=== PATIENT | female | born 1955 | race Caucasian/White ===

== ENCOUNTER 2020-12-02 18:22 | Emergency (ER) | payer MEDICARE, OTHER ==
[~2020-12-02] VITALS: Ht 158 cm; Wt 85.7 kg
--- NOTE | 2020-12-02 19:36 | ED Lower Extremity ---
General Chief Complaint: Trauma-Non Activation Stated Complaint: FALL/R HIP INJ PAIN Nursing Triage Note: fall from standing position approx. 1300. reports initially able to ambulate. now reports pain worsened et. unable to bear wt on right leg. also c/o right shoulder pain. denies loc/other injuries. Nursing Sepsis Screen: No Definite Risk Source: patient Exam Limitations: no limitations History of Present Illness Date Seen by Provider: Dec 02, 2020 Time Seen by Provider: 19:34 Initial Comments This is a healthy-appearing 65-year-old female who presents to the ER with complaints of right hip pain and low back pain after slipping in a puddle of water and falling on her kitchen floor. Fall occurred around 1300 this afternoon. Denies hitting head or neck, no loss of consciousness. No numbnes s/tingling sensation. No loss of sensation in groin. No changes in bowel/bladder function. Allergies and Home Medications Allergies Coded Allergies: No Known Drug Allergies (Unverified , 12/02/20) Patient Home Medication List Home Medication List Reviewed: Yes Review of Systems Constitutional: no symptoms reported EENTM: no symptoms reported Respiratory: no symptoms reported Cardiovascular: no symptoms reported Gastrointestinal: no symptoms reported Genitourinary: no symptoms reported Musculoskeletal: see HPI Skin: no symptoms reported Psychiatric/Neurological: No Symptoms Reported Past Pqpyozw-Bvupuo-Kvphyc Hx Patient Social History Alcohol Use: Denies Use Recreational Drug Use: No Smoking Status: Never a Smoker 2nd Hand Smoke Exposure: No Recent Foreign Travel: No Contact w/Someone Who Travel: No Recent Infectious Disease Expo: No Recent Hopitalizations: No Immunizations Up To Date Tetanus Booster (TDap): Unknown Seasonal Allergies Seasonal Allergies: No Past Medical History Surgeries: Yes Hysterectomy, Orthopedic Respiratory: Yes (home 02 at ) COPD Cardiac: Yes Hypertension 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 oz. kg; 34.00 BMI Method: General Appearance: WD/WN, no apparent distress HEENT: PERRL/EOMI, normal ENT inspection Neck: non-tender, full range of motion, supple Cardiovascular: regular rate, rhythm, no murmur Respiratory: lungs clear, normal breath sounds Back: normal inspection, vertebral tenderness (lumbar region ) Hips: bilateral hip normal inspection; right hip pain Legs: bilateral leg non-tender, bilateral leg normal inspection, bilateral leg normal range of motion, bilateral leg no evidence of injury Knees: bilateral knee non-tender, bilateral knee normal inspection, bilateral knee normal range of motion, bilateral knee no evidence of injury Ankles: bilateral ankle non-tender, bilateral ankle normal inspection, bilateral ankle normal range of motion, bilateral ankle no evidence of injury Neurologic/Tendon: normal sensation, normal motor functions, normal tendon functions Neurologic/Psychiatric: no motor/sensory deficits, alert, normal mood/affect, oriented x 3 Skin: normal color, warm/dry Progress/Results/Core Measures Results/Orders My Orders Orders - JEANMARIE CHRISTOPHER APRN Pelvis/Tripp Hips 3-4 Views (12/02/20 19:36) Lumbar Spine - 2-3 Views (12/02/20 19:36) Orphenadrine Inj (Ed Only) (Norflex Inje (12/02/20 20:30) Ketorolac Injection (Toradol Injection) (12/02/20 20:30) Vital Signs/I&O 12/02/20 12/02/20 19:08 20:47 Temp 36.5 36.4 Pulse 78 76 Resp 18 18 B/P (MAP) 188/89 (122) 165/81 (122) Pulse Ox 95 96 O2 Delivery Room Air Room Air Blood Pressure Mean: 122 Progress Progress Note : Progress Note Images of lumbar spine and pelvis/hips ordered. Full ROM right shoulder with minimal discomfort. Orders placed for Toradol 30mg and Norflex 60mg IM for pain. No acute findings noted on x-rays. Reviewed discharge plan and she is agreeable with plan. Diagnostic Imaging Diagonstic Imaging: Xray Plain Films/CT/US/NM/MRI: pelvis Comments NAME: YORDAN JUAN [facility] REC#: [id number] PT STATUS: REG ER : 1955 PHYSICIAN: JEANMARIE CHRISTOPHER APRN ADMIT DATE: 12/02/20/ER Signed Date of Exam:12/02/20 PELVIS/TRIPP HIPS 3-4 VIEWS INDICATION: Fall. Right hip pain. FINDINGS: 3 views. AP pelvis shows moderate sclerosis along the inferior aspect of the left SI joint. Right SI joint appears normal. Pubic symphysis in good alignment. No evidence of pelvic fractures. There is total arthroplasty of the left hip with components in good position. Right hip is in good alignment with the acetabulum with mild to moderate degenerative changes. No fractures. IMPRESSION: Degenerative changes noted along the SI joints more severe on the left. Mild to moderate degenerative changes noted of the right hip as well. No acute abnormalities. Dictated by: Dictated on workstation # [id number] Dict: 12/02/202003 Trans: 12/02/202014 [facility]B [id number] Interpreted by: MATIAS POLLARD MD Electronically signed by: MATIAS POLLARD MD 12/02/202014 Diagonstic Imaging: Xray Plain Films/CT/US/NM/MRI: other (lumbar ) Comments NAME: YORDAN JAUN [facility] REC#: [id number] PT STATUS: REG ER : 1955 PHYSICIAN: JEANMARIE CHRISTOPHER [employer] ADMIT DATE: 12/02/20/ER Signed Date of Exam:12/02/20 LUMBAR SPINE - 2-3 VIEWS INDICATION: Fall. Back and right hip pain. FINDINGS: 3 views. The lumbosacral spine shows good alignment. Body height is well-maintained without evidence of compression fracture. Facets show good alignment. Minimal degenerative changes are noted. The aorta is atherosclerotic without aneurysm. There is moderate sclerosis along the inferior aspect of the left SI joint. IMPRESSION: Mild degenerative changes with no acute abnormalities noted. Dictated by: Dictated on workstation # [id number] Dict: 12/02/202002 Trans: 12/02/202014 [facility]B [id number] Interpreted by: MATIAS POLLARD MD Electronically signed by: MATIAS POLLARD MD 12/02/202014 Departure Impression Primary Impression: Fall Additional Impressions: Hip pain Back pain due to injury Disposition: HOME, SELF-CARE Condition: Improved Departure-Patient Inst. Decision time for Depature: 20:34 Referrals: NO,LOCAL PHYSICIAN (PCP/Family) Primary Care Physician Patient Instructions: Acute Pain, Adult Add. Discharge Instructions: Plan: 1. Discharge home. 2. May take Tylenol or Ibuprofen as needed for pain per package instructions. 3. Follow up with your primary care provider if your symptoms persist. 4. Return for any new or concerning symptoms. All discharge instructions reviewed with patient and/or family. Voiced understanding. JEANMARIE CHRISTOPHER [employer] Dec 02, 2020 19:36
--- NOTE | 2020-12-02 20:05 | Diagnostic Imaging Report ---
INDICATION: Fall. Back and right hip pain. FINDINGS: 3 views. The lumbosacral spine shows good alignment. Body height is well-maintained without evidence of compression fracture. Facets show good alignment. Minimal degenerative changes are noted. The aorta is atherosclerotic without aneurysm. There is moderate sclerosis along the inferior aspect of the left SI joint. IMPRESSION: Mild degenerative changes with no acute abnormalities noted. Dictated by: Dictated on workstation # [id number]
--- NOTE | 2020-12-02 20:08 | Diagnostic Imaging Report ---
INDICATION: Fall. Right hip pain. FINDINGS: 3 views. AP pelvis shows moderate sclerosis along the inferior aspect of the left SI joint. Right SI joint appears normal. Pubic symphysis in good alignment. No evidence of pelvic fractures. There is total arthroplasty of the left hip with components in good position. Right hip is in good alignment with the acetabulum with mild to moderate degenerative changes. No fractures. IMPRESSION: Degenerative changes noted along the SI joints more severe on the left. Mild to moderate degenerative changes noted of the right hip as well. No acute abnormalities. Dictated by: Dictated on workstation # [id number]
[2020-12-02] MEDS ORDERED: ORPHENADRINE 60 MG/2 ML (NORFLEX) AMP (ED ONLY) IM ONE (20:30)
[2020-12-02] MEDS ORDERED: KETOROLAC 60 MG/2 ML VIAL IM ONE (20:30)
[2020-12-02 20:47] VITALS: BP 165/81
--- NOTE | 2020-12-02 20:48 | NUR ---
REPORT GIVEN TO EL FRANCO
== END 2020-12-02 20:52 | disposition home or self-care (01) ==
LOC: EDUNIT# 18:22 → ER 18:25
DX: S39.92XA Unspecified injury of lower back, initial encounter (principal); M25.551 Pain in right hip; I10 Essential (primary) hypertension; J44.9 Chronic obstructive pulmonary disease, unspecified; Z99.81 Dependence on supplemental oxygen; W01.0XXA Fall on same level from slipping, tripping and stumbling without subsequent striking against object, initial encounter; Y92.000 Kitchen of unspecified non-institutional (private) residence as the place of occurrence of the external cause
CPT/HCPCS: 72100; 73522

== ENCOUNTER → 2021-04-14 | Outpatient (CLI) | payer MEDICARE, OTHER ==
--- NOTE | 2021-04-14 16:27 | Diagnostic Imaging Report ---
INDICATION: Right hip injury. Two views of the right hip show no fracture, dislocation or other acute abnormalities. IMPRESSION: No acute abnormalities seen in the right hip. Dictated by: Dictated on workstation # [id number]
== END ==
LOC: RAD FS 14:39
PROVIDERS: ATTEND Nurse Practitioner
DX: S70.01XA Contusion of right hip, initial encounter (principal); X58.XXXA Exposure to other specified factors, initial encounter
CPT/HCPCS: 73502

== ENCOUNTER 2021-09-12 11:19 | Inpatient (IN) | payer MEDICARE, OTHER ==
[~2021-09-12] VITALS: Ht 157.5 cm; Wt 85.3 kg
[2021-09-12 11:52] LABS: BASOPHILS % (AUTO) 0 % (0-10); EOSINOPHILS # (AUTO) 0.1 10^3/uL (0.0-0.3); EOSINOPHILS % (AUTO) 1 % (0-10); HEMATOCRIT 32 % (35-52); HEMOGLOBIN 10.3 g/dL (11.5-16.0); LYMPHOCYTES # (AUTO) 1.8 10^3/uL (1.0-4.0); LYMPHOCYTES % (AUTO) 22 % (12-44); MEAN CORPUSCULAR HEMOGLOBIN 29 pg (25-34); MEAN CORPUSCULAR HGB CONC 32 g/dL (32-36); MEAN CORPUSCULAR VOLUME 90 fL (80-99); MEAN PLATELET VOLUME 11.7 fL (9.0-12.2); MONOCYTES # (AUTO) 0.7 10^3/uL (0.0-1.0); MONOCYTES % (AUTO) 8 % (0-12); NEUTROPHILS # (AUTO) 5.8 10^3/uL (1.8-7.8); NEUTROPHILS % (AUTO) 69 % (42-75); PLATELET COUNT 175 10^3/uL (130-400); WHITE BLOOD COUNT 8.4 10^3/uL (4.3-11.0)
[2021-09-12] MEDS ORDERED: LACTATED RINGERS 1,000 ML IV SCH ×2 (12:00→15:15)
[2021-09-12] MEDS ORDERED: KETOROLAC 30 MG/ML VIAL IVP ONE (12:00)
[2021-09-12] MEDS ORDERED: oxyCODONE/APAP 5/325MG (PERCOCET 5) TABLET PO ONE (12:00)
[2021-09-12 12:07] LABS: ALBUMIN 3.3 GM/DL (3.2-4.5); POTASSIUM 3.8 MMOL/L (3.6-5.0)
[2021-09-12 12:08] LABS: CALCIUM 9.3 MG/DL (8.5-10.1); PROTHROMBIN TIME PATIENT 13.9 SEC (12.2-14.7)
[2021-09-12 12:10] LABS: TOTAL PROTEIN 6.8 GM/DL (6.4-8.2)
[2021-09-12 12:11] LABS: BILIRUBIN,TOTAL 0.5 MG/DL (0.1-1.0)
[2021-09-12 12:13] LABS: CREATININE SERUM 2.3 MG/DL (0.60-1.30)
--- NOTE | 2021-09-12 12:41 | ED Hip Pain/Injury ---
General Chief Complaint: Hip/Pelvic Problems Stated Complaint: L LEG PROBLEMS, LOW O2 Nursing Triage Note: PT TO RM 9 PER [facility] W C/O LEFT LEG "NOT WORKING" THIS AM D/T LEFT HIP PAIN. PT HAD RIGHT TOTAL HIP REPLACEMENT ON TUESDAY AND WAS DC HOME FROM [facility] YESTERDAY. PT DENIES BM SX SURGERY. 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 EMS REPORTS PT SPO2 IN LOW 80'S UPON ARRIVAL AND UP TO 90+% AFTER 2L NC. PT A&OX4. Source: patient Exam Limitations: no limitations (JOE KIMBROUGH APRN) History of Present Illness Date Seen by Provider: Sep 12, 2021 Time Seen by Provider: 11:30 Initial Comments To ER with report of left hip and leg "not working". Patient had a right total hip replacement on Tuesday at [facility]. Has not had a bowel movement since Tuesday. She wears oxygen at home at night at 2 L per nasal cannula. She has had some low blood pressure on the way in about 90 systolic. Left hip does move and it does work but limited range of motion secondary to pain in the left buttock. No fall or injury. Timing/Duration: constant Severity: moderate Location: hip (L) Associated Symptoms: denies symptoms (JOE KIMBROUGH APRN) Allergies and Home Medications Allergies Coded Allergies: No Known Drug Allergies (Unverified , 12/02/20) Patient Home Medication List Home Medication List Reviewed: Yes (JOE KIMBROUGH APRN) Review of Systems Constitutional: see HPI EENTM: see HPI Respiratory: no symptoms reported Cardiovascular: no symptoms reported Genitourinary: no symptoms reported Musculoskeletal: no symptoms reported Skin: no symptoms reported Psychiatric/Neurological: No Symptoms Reported (JOE KIMBROUGH APRN) Past Jvpmqii-Grgtdr-Lkckmt Hx Patient Social History Tobacco Use?: No Substance use?: No Alcohol Use?: No (JOE KIMBROUGH APRN) Immunizations Up To Date Tetanus Booster (TDap): Unknown First/Initial COVID19 Vaccinat: 2020 Second COVID19 Vaccination Arpan: 2020 COVID19 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: MODERNA (JOE KIMBROUGH APRN) Seasonal Allergies Seasonal Allergies: No (JOE KIMBROUGH APRN) Past Medical History Surgery/Hospitalization HX: SX: RIGHT TOTAL HIP REPLACEMENT 09/09/2021, HYSTERECTOMY, LEFT HIP REPLACEMENT 2012 PMH: COPD Surgeries: Yes Hysterectomy, Orthopedic Respiratory: Yes (home 02 at hs) COPD Cardiac: Yes Hypertension 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 oz. kg; 34.00 BMI Method: General Appearance: No Apparent Distress, WD/WN, Other (oxygen is 93% on her baseline 2 L. She is alert and oriented to person place time and situation.) HEENT: PERRL/EOMI, TMs Normal Neck: Full Range of Motion, Normal Inspection Cardiovascular: Regular Rate, Rhythm, Normal Peripheral Pulses Respiratory: Lungs Clear, Normal Breath Sounds, No Accessory Muscle Use, No Respiratory Distress Gastrointestinal: Normal Bowel Sounds, Non Tender, Soft Extremity: Normal Capillary Refill, Normal Inspection Neurologic/Psychiatric: Alert, Oriented x3 Skin: Normal Color, Warm/Dry Incision clean dry intact overlying the lateral right hip. (JOE KIMBROUGH APRN) Procedures/Interventions Lumen: triple Central Line Procedure: betadine prep, sterile drapes applied, sterile dressing applied Position: internal jugular (R) Anesthesia: local Volume Anesthetic (ccs): 4 Complications: none Post Position: sutured, good blood return, position confirmed w/ CXR (JOE KIMBROUGH APRN) Progress/Results/Core Measures Results/Orders Lab Results Laboratory Tests Test 09/12/21 11:40 09/12/21 11:44 09/12/21 12:00 Range/Units White Blood Count 8.4 4.3-11.0 10^3/uL Red Blood Count 3.52 L 3.80-5.11 10^6/uL Hemoglobin 10.3 L 11.5-16.0 g/dL Hematocrit 32 L 35-52 % Mean Corpuscular Volume 90 80-99 fL Mean Corpuscular Hemoglobin 29 25-34 pg Mean Corpuscular Hemoglobin Concent 32 32-36 g/dL Red Cell Distribution Width 14.3 10.0-14.5 % Platelet Count 175 130-400 10^3/uL Mean Platelet Volume 11.7 9.0-12.2 fL Immature Granulocyte % (Auto) 1 % Neutrophils (%) (Auto) 69 42-75 % Lymphocytes (%) (Auto) 22 12-44 % Monocytes (%) (Auto) 8 0-12 % Eosinophils (%) (Auto) 1 0-10 % Basophils (%) (Auto) 0 0-10 % Neutrophils # (Auto) 5.8 1.8-7.8 10^3/uL Lymphocytes # (Auto) 1.8 1.0-4.0 10^3/uL Monocytes # (Auto) 0.7 0.0-1.0 10^3/uL Eosinophils # (Auto) 0.1 0.0-0.3 10^3/uL Basophils # (Auto) 0.0 0.0-0.1 10^3/uL Immature Granulocyte # (Auto) 0.1 0.0-0.1 10^3/uL Prothrombin Time 13.9 12.2-14.7 SEC INR Comment 1.0 0.8-1.4 Activated Partial Thromboplast Time 25 24-35 SEC Sodium Level 133 L 135-145 MMOL/L Potassium Level 3.8 3.6-5.0 MMOL/L Chloride Level 97 L 98-107 MMOL/L Carbon Dioxide Level 21 21-32 MMOL/L Anion Gap 15 H 5-14 MMOL/L Blood Urea Nitrogen 28 H 7-18 MG/DL Creatinine 2.30 H 0.60-1.30 MG/DL Estimat Glomerular Filtration Rate 21 BUN/Creatinine Ratio 12 Glucose Level 258 H 70-105 MG/DL Calcium Level 9.3 8.5-10.1 MG/DL Corrected Calcium 9.9 8.5-10.1 MG/DL Total Bilirubin 0.5 0.1-1.0 MG/DL Aspartate Amino Transf (AST/SGOT) 63 H 5-34 U/L Alanine Aminotransferase (ALT/SGPT) 74 H 0-55 U/L Alkaline Phosphatase 67 40-136 U/L B-Type Natriuretic Peptide 392.5 H <100.0 PG/ML Total Protein 6.8 6.4-8.2 GM/DL Albumin 3.3 3.2-4.5 GM/DL Procalcitonin 0.38 H <0.10 NG/ML Glucometer 241 H 70-110 MG/DL Lactic Acid Level 2.31 *H 0.50-2.00 MMOL/L (IRAM WAKEFIELD MD) Medications Given in ED Current Medications Medications Dose Ordered Sig/Costa Route Start Time Stop Time Status Last Admin Dose Admin Ketorolac Tromethamine 15 mg ONCE ONCE IVP 09/12/21 12:00 09/12/21 12:01 DC 09/12/21 12:04 15 MG Oxycodone/ Acetaminophen 1 tab ONCE ONCE PO 09/12/21 12:00 09/12/21 12:01 DC 09/12/21 12:04 1 TAB (IRAM WAKEFIELD MD) Vital Signs/I&O 09/12/21 09/12/21 11:26 11:26 Temp 36.3 Pulse 88 Resp 18 B/P (MAP) 121/61 (81) Pulse Ox 97 97 O2 Delivery Nasal Cannula Nasal Cannula O2 Flow Rate 3.00 3.00 (IRAM WAKEFIELD MD) Blood Pressure Mean: 81 Departure Communication (Admissions) 1407-Pressure a little soft at 79/57 receiving first liter of fluids. Will admit to Dr Dakotah lacey Family Conversation NAME: YORDAN JUAN [facility] REC#: [id number] PT STATUS: REG ER : 1955 PHYSICIAN: JOE KIMBROUGH APRN ADMIT DATE: 09/12/21/ER Draft Date of Exam:09/12/21 CT ABDOMEN/PELVIS WO PROCEDURE: CT abdomen and pelvis without contrast. TECHNIQUE: Multiple contiguous axial images were obtained through the abdomen and pelvis without the use of intravenous contrast. Auto Exposure Controls were utilized during the CT exam to meet ALARA standards for radiation dose reduction. INDICATION: Abdominal pain EXAMINATION: CT abdomen pelvis without contrast 09/12/21 FINDINGS: Axial imaging of the abdomen and the pelvis without contrast. There is linear scar or atelectasis in the visualized lung bases. The nonopacified abdominal viscera limited due to the lack of contrast. There is no acute abnormality appreciated in the liver or spleen. There is evidence of previous cholecystectomy. The pancreas and adrenal glands appear unremarkable. Kidneys unremarkable. Atherosclerotic disease is noted. There is no inflammatory change about the loops of bowel. Appendix normal. There are bilateral hip prostheses which limit evaluation of the intrapelvic structures secondary to streak artifact. Fat stranding overlying the right hip prosthesis with several foci of subcutaneous air noted. Correlate clinically for recent procedure within the region as this could be iatrogenic. If there has been no recent intervention in the region a gas-forming infectious etiology would be the primary consideration. Adjacent fluid in the region could represent postsurgical seroma or hematoma with early abscess not excluded. Fat stranding extends along the lateral aspect of the right mid and proximal thigh which could be edema versus cellulitis. There is no acute osseous abnormality. IMPRESSION: 1. Fat stranding and fluid as well as subcutaneous air overlying the lateral border of the right hip. If there has been no recent intervention a gas-forming infectious etiology should be clinically excluded. MRI could provide further characterization if clinically indicated. Fat stranding more distally is noted likely on the basis of edema versus cellulitis not excluded on CT. 2. Incidental findings otherwise noted within the intra-abdominal and pelvic structures. Dictated on workstation # [id number] Dict: 09/12/21 1258 Trans: 09/12/21 1307 [facility] [id number] Interpreted by: SADIE LEDBETTER MD Electronically signed by: NAME: YORDAN JUAN [facility] REC#: [id number] PT STATUS: REG ER : 1955 PHYSICIAN: JOE KIMBROUGH APRN ADMIT DATE: 09/12/21/ER Draft Date of Exam:09/12/21 CT HEAD WO PROCEDURE: CT head without contrast. TECHNIQUE: Multiple contiguous axial images were obtained through the brain without the use of intravenous contrast. Auto Exposure Controls were utilized during the CT exam to meet ALARA standards for radiation dose reduction. DATE: September 12, 2021. COMPARISON: None. INDICATION: 66-year-old female, altered mental status. FINDINGS: The ventricles and cerebral spinal fluid spaces are of normal size and configuration for the patient's age. There is no mass effect or midline shift. There is no acute intracranial hemorrhage. There is no abnormal extra-axial fluid collection. The visualized portions of the paranasal sinuses, mastoid air cells and middle ears are well aerated. IMPRESSION: 1. No identified acute intracranial abnormality. Dictated on workstation # [id number] Dict: 09/12/21 1256 Trans: 09/12/21 1300 [facility] [id number] Interpreted by: VY BATEMAN MD Electronically signed by: (JOE KIMBROUGH APRN) Impression Primary Impression: JULIANN (acute kidney injury) Additional Impressions: Hip pain, left Status post right hip replacement Disposition: ADMITTED INPATIENT Condition: Stable Admissions Decision to Admit Reason: Admit from ER (General) Decision to Admit/Date: Sep 12, 2021 Time/Decision to Admit Time: 12:56 (JOE KIMBROUGH APRN) Departure-Patient Inst. Referrals: DEVORA TREVINO MD (PCP/Family) Primary Care Physician ATTENDING PHYSICIAN NOTE: I was physically present as attending physician in the emergency department during the care of this patient, but I was not directly involved in the decision making or delivery of care for this patient. (IRAM WAKEFIELD MD) JOE KIMBROUGH APRN Sep 12, 2021 12:41 IRAM WAKEFIELD MD Sep 12, 2021 17:18
--- NOTE | 2021-09-12 12:50 | Diagnostic Imaging Report ---
EXAMINATION: Chest radiograph, portable AP view. DATE: 09/12/2021 12:42 PM INDICATION: 66-year-old female, shortness of breath. COMPARISON: None. FINDINGS: Heart size and mediastinal contours are unremarkable. There is no identified pneumothorax. There is no large pleural effusion. There is no identified focal airspace consolidation. IMPRESSION: No identified acute cardiopulmonary abnormality. Dictated by: Dictated on workstation # [id number]
--- NOTE | 2021-09-12 13:00 | Diagnostic Imaging Report ---
PROCEDURE: CT head without contrast. TECHNIQUE: Multiple contiguous axial images were obtained through the brain without the use of intravenous contrast. Auto Exposure Controls were utilized during the CT exam to meet ALARA standards for radiation dose reduction. DATE: September 12, 2021. COMPARISON: None. INDICATION: 66-year-old female, altered mental status. FINDINGS: The ventricles and cerebral spinal fluid spaces are of normal size and configuration for the patient's age. There is no mass effect or midline shift. There is no acute intracranial hemorrhage. There is no abnormal extra-axial fluid collection. The visualized portions of the paranasal sinuses, mastoid air cells and middle ears are well aerated. IMPRESSION: 1. No identified acute intracranial abnormality. Dictated by: Dictated on workstation # [id number]
--- NOTE | 2021-09-12 13:07 | Diagnostic Imaging Report ---
PROCEDURE: CT abdomen and pelvis without contrast. TECHNIQUE: Multiple contiguous axial images were obtained through the abdomen and pelvis without the use of intravenous contrast. Auto Exposure Controls were utilized during the CT exam to meet ALARA standards for radiation dose reduction. INDICATION: Abdominal pain EXAMINATION: CT abdomen pelvis without contrast 09/12/21 FINDINGS: Axial imaging of the abdomen and the pelvis without contrast. There is linear scar or atelectasis in the visualized lung bases. The nonopacified abdominal viscera limited due to the lack of contrast. There is no acute abnormality appreciated in the liver or spleen. There is evidence of previous cholecystectomy. The pancreas and adrenal glands appear unremarkable. Kidneys unremarkable. Atherosclerotic disease is noted. There is no inflammatory change about the loops of bowel. Appendix normal. There are bilateral hip prostheses which limit evaluation of the intrapelvic structures secondary to streak artifact. Fat stranding overlying the right hip prosthesis with several foci of subcutaneous air noted. Correlate clinically for recent procedure within the region as this could be iatrogenic. If there has been no recent intervention in the region a gas-forming infectious etiology would be the primary consideration. Adjacent fluid in the region could represent postsurgical seroma or hematoma with early abscess not excluded. Fat stranding extends along the lateral aspect of the right mid and proximal thigh which could be edema versus cellulitis. There is no acute osseous abnormality. IMPRESSION: 1. Fat stranding and fluid as well as subcutaneous air overlying the lateral border of the right hip. If there has been no recent intervention a gas-forming infectious etiology should be clinically excluded. MRI could provide further characterization if clinically indicated. Fat stranding more distally is noted likely on the basis of edema versus cellulitis not excluded on CT. 2. Incidental findings otherwise noted within the intra-abdominal and pelvic structures. Dictated by: Dictated on workstation # [id number]
[2021-09-12 13:46] LABS: BILIRUBIN,URINE NEGATIVE (NEGATIVE); CLARITY,URINE SL CLOUDY; COLOR,URINE YELLOW; GLUCOSE, URINE (UA) NEGATIVE (NEGATIVE); KETONES,URINE NEGATIVE (NEGATIVE); LEUKOCYTE ESTERASE ,URINE NEGATIVE (NEGATIVE); NITRITE,URINE NEGATIVE (NEGATIVE); PH,URINE 5.5 (5-9); PROTEIN,URINE NEGATIVE (NEGATIVE)
[2021-09-12 13:52] LABS: BACTERIA,URINE NEGATIVE /HPF
[2021-09-12 15:19] LABS: ABG BASE EXCESS -0.6 MMOL/L (-2.5-2.5); ABG OXYGEN SATURATION 95 % (94-100); ABG PCO2 45 MMHG (35-45); ABG PH 7.35 (7.37-7.43); ABG PO2 82 MMHG (79-93); ABG TCO2 25.6 MMOL/L (21.0-31.0)
--- NOTE | 2021-09-12 15:19 | Diagnostic Imaging Report ---
INDICATION: Central line placement. EXAMINATION: Chest, 09/12/2021. COMPARISON: 09/12/2021 at an earlier time. FINDINGS: The heart is prominent. Pulmonary vascular unremarkable. Atelectasis versus infiltrate suspected at the left lung base. No significant effusion. No pneumothorax. Placement of a right jugular line is noted with the tip in the distal SVC. IMPRESSION: 1. Central line, as above. 2. Possible infiltrate at the left lung base. Dictated by: Dictated on workstation # [id number]
[2021-09-12 15:20] LABS: ALLENS TEST ARTLINE; INSPIRED O2 2; PATIENT TEMP 37.1; VENTILATOR NO
--- NOTE | 2021-09-12 15:52 | Tele-ICU Progress Note ---
Progress Note 66 y/o female s/p right total hip arthroplasty on 09/09 presents with left hip pain Lactate 2.3 WBC normal BUN: 28 Creat; 2.3 CT head and abd: essentially normal Air over right hip area PLAN: admit to ICU [place] cultured Focused Exam Lactate Level 09/12/21 12:00: Lactic Acid Level 2.31*H 09/12/21 14:00: Lactic Acid Level 2.23*H Height, Weight, BMI Height: '" Weight: lbs. oz. kg; 34.00 BMI Method: Lactic Acid Level Laboratory Tests Test 09/12/21 12:00 09/12/21 14:00 Lactic Acid Level 2.31 MMOL/L (0.50-2.00) *H 2.23 MMOL/L (0.50-2.00) *H Laboratory Tests 09/12/21 11:40 Results/Procedures Lab Laboratory Tests 09/12/21 11:40 Labs Labs Laboratory Tests 09/12/21 11:40: White Blood Count 8.4, Red Blood Count 3.52L, Hemoglobin 10.3L, Hematocrit 32L, Mean Corpuscular Volume 90, Mean Corpuscular Hemoglobin 29, Mean Corpuscular Hemoglobin Concent 32, Red Cell Distribution Width 14.3, Platelet Count 175, Mean Platelet Volume 11.7, Immature Granulocyte % (Auto) 1, Neutrophils (%) (Auto) 69, Lymphocytes (%) (Auto) 22, Monocytes (%) (Auto) 8, Eosinophils (%) (Auto) 1, Basophils (%) (Auto) 0, Neutrophils # (Auto) 5.8, Lymphocytes # (Auto) 1.8, Monocytes # (Auto) 0.7, Eosinophils # (Auto) 0.1, Basophils # (Auto) 0.0, Immature Granulocyte # (Auto) 0.1, Prothrombin Time 13.9, INR Comment 1.0, Activated Partial Thromboplast Time 25, Sodium Level 133L, Potassium Level 3.8, Chloride Level 97L, Carbon Dioxide Level 21, Anion Gap 15H, Blood Urea Nitrogen 28H, Creatinine 2.30H, Estimat Glomerular Filtration Rate 21, BUN/Creatinine R atio 12, Glucose Level 258H, Calcium Level 9.3, Corrected Calcium 9.9, Total Bi lirubin 0.5, Aspartate Amino Transf (AST/SGOT) 63H, Alanine Aminotransferase (ALT/SGPT) 74H, Alkaline Phosphatase 67, B-Type Natriuretic Peptide 392.5H, Total Protein 6.8, Albumin 3.3, Procalcitonin 0.38H 09/12/21 11:44: Glucometer 241H 09/12/21 12:00: Lactic Acid Level 2.31*H 09/12/21 13:35: Urine Color YELLOW, Urine Clarity SL CLOUDY, Urine pH 5.5, Urine Specific [place] 1.025H, Urine Protein NEGATIVE, Urine Glucose (UA) NEGATIVE, Urine Ketones NEGATIVE, Urine Nitrite NEGATIVE, Urine Bilirubin NEGATIVE, Urine Urobilinogen 0.2, Urine Leukocyte Esterase NEGATIVE, Urine RBC (Auto) NEGATIVE, Urine RBC NONE, Urine WBC NONE, Urine Squamous Epithelial Cells NONE, Urine Crystals NONE, Urine Bacteria NEGATIVE, Urine Casts NONE, Urine Mucus NEGATIVE, Urine Culture Indicated CULTURE PENDING 09/12/21 14:00: Lactic Acid Level 2.23*H 09/12/21 15:12: Blood Gas Puncture Site LEFT RADIAL, Blood Gas Patient Temperature 37.1, Arterial Blood pH 7.35L, Arterial Blood Partial Pressure CO2 45, Arterial Blood Partial Pressure O2 82, Arterial Blood HCO3 24, Arterial Blood Total CO2 25.6, Arterial Blood Oxygen Saturation 95, Arterial Blood Base Excess -0.6, Dylan Test ARTLINE, Blood Gas Ventilator Setting NO, Blood Gas Inspired Oxygen 2 BARRY FERRERA MD Sep 12, 2021 15:52
[2021-09-12] MEDS: DOCUSATE SODIUM 100 MG (COLACE) CAP PO SCH ×2 (17:17→21:29)
[2021-09-12] MEDS: LACTATED RINGERS 1,000 ML IV SCH (17:18)
[2021-09-12] MEDS: polyethylene glycoL POWDER 17 GM (MIRALAX) PACK PO SCH ×2 (17:18→21:29)
--- NOTE | 2021-09-12 19:14 | History & Physical-Hospitalist ---
History of Present Illness HPI/Chief Complaint Chief complaint: Acute kidney injury with hypotension History of present illness: This is a 66-year-old white female clinic patient of [facility] who just returned from [facility] yesterday after a hip replacement uncomplicated who began feeling weak and dizzy and in the ER was assessed to have acute kidney injury with hypotension. Upon my assessment she was lethargic and pale and ashen with hypotension so I asked for central line to be placed in ICU admission and to evaluate any source of sepsis. Patient appears to have hypovolemic status with acute kidney injury but will monitor patient closely in the ICU. Source: patient Exam Limitations: no limitations Date Seen 09/12/21 Time Seen by a Provider: 13:00 Attending Physician Blank Claire Pankaj K MD Referring Physician Date of Admission Sep 12, 2021 at 13:21 Home Medications & Allergies Home Medications Reviewed patient Home Medication Reconciliation performed by pharmacy medication reconciliations prosthetics technician and/or nursing. Patients Allergies have been reviewed. Allergies Allergies Coded Allergies No Known Drug Allergies (Unverified12/02/20) Past Nflklgg-Xzqcrm-Gymmde Hx Patient Social History Marrital Status: Employed/Student: retired Tobacco Use?: No Smoking Status: Never a Smoker Smokeless Tobacco Frequency: Never a User Use of E-Cig and/or Vaping dev: Unable to obtain Substance use?: No Alcohol Use?: No Pt feels they are or have been: No Immunizations Up To Date First/Initial COVID19 Vaccinat: 2020 Second COVID19 Vaccination Arpan: 07/2021 Tetanus Booster (TDap): Unknown Seasonal Allergies Seasonal Allergies: No Current Status Advance Directives: No Communicates: Verbally Primary Language: Sammarinese Preferred Spoken Language: Sammarinese Is interpretation needed?: No Implanted or Applied Medical D: None Past Medical History Surgeries: Hysterectomy, Orthopedic 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 Gastroesophageal Reflux Arthritis Diabetes, Non-Insulin dep Blood Disorders: No Review of Systems Constitutional: see HPI, dizziness, malaise, weakness EENTM: no symptoms reported Respiratory: no symptoms reported Cardiovascular: no symptoms reported Gastrointestinal: no symptoms reported Musculoskeletal: back pain, joint pain Skin: no symptoms reported Psychiatric/Neurological: No Symptoms Reported All Other Systems Reviewed Negative Unless Noted: Yes Physical Exam Physical Exam Vital Signs Vital Signs - First Documented 10/16/21 10/16/21 11:26 16:39 Temp 36.3 Pulse 88 Resp 18 B/P (MAP) 121/61 (81) Pulse Ox 97 O2 Delivery Nasal Cannula O2 Flow Rate 3.00 FiO2 91 Capillary Refill : Less Than 3 Seconds Height, Weight, BMI Height: '" Weight: lbs. oz. kg; 34.54 BMI Method: General Appearance: Anxious, Chronically ill, Mild Distress, Obese, Other (Pale and ashen) Eyes: Right Eye Normal Inspection, Right Eye PERRL HEENT: PERRL/EOMI, Normal ENT Inspection, Pharynx Normal, Moist Mucous Membranes Neck: Full Range of Motion, Normal Inspection, Non Tender Respiratory: Chest Non Tender, Lungs Clear, Normal Breath Sounds, No Accessory Muscle Use, No Respiratory Distress Cardiovascular: Regular Rate, Rhythm, No Edema, No Gallop, No JVD, No Murmur, Normal Peripheral Pulses Gastrointestinal: Normal Bowel Sounds, No Organomegaly, No Pulsatile Mass, Non Tender, Soft Back: Normal Inspection, No CVA Tenderness, No Vertebral Tenderness Extremity: Normal Capillary Refill, Normal Inspection, Normal Range of Motion, Non Tender, No Calf Tenderness, No Pedal Edema Neurologic/Psychiatric: Alert, Oriented x3, No Motor/Sensory Deficits, Normal Mood/Affect Skin: Normal Color, Warm/Dry Lymphatic: No Adenopathy Results Results/Procedures Labs Laboratory Tests 09/12/21 11:40 09/13/21 03:45 Patient resulted labs reviewed. Assessment/Plan Admission Diagnosis Assessment: Hypovolemia Hypotension Acute kidney injury Elevated lactic acid from volume depletion Recent hip replacement just discharged yesterday History of hypertension Plan: ICU IV fluids Central line Admission Status: Inpatient Order (span 2 midnights) Reason for Inpatient Admission: Hypotension with acute kidney injury BLANK CLAIRE DO Sep 12, 2021 19:14
[2021-09-12] MEDS ORDERED: inSUlin ASPART (NovoLOG) 1 UNIT/0.01 ML (CHARGE PER UNIT) ONE (19:59)
[2021-09-12] MEDS: inSUlin ASPART (NovoLOG) 1 UNIT/0.01 ML (CHARGE PER UNIT) SC SCH (20:00)
[2021-09-13] MEDS: LACTATED RINGERS 1,000 ML IV SCH ×3 (01:48→15:58)
[2021-09-13 03:53] LABS: BASOPHILS % (AUTO) 0 % (0-10); EOSINOPHILS # (AUTO) 0.1 10^3/uL (0.0-0.3); EOSINOPHILS % (AUTO) 2 % (0-10); HEMATOCRIT 27 % (35-52); HEMOGLOBIN 9.1 g/dL (11.5-16.0); LYMPHOCYTES # (AUTO) 1.7 10^3/uL (1.0-4.0); LYMPHOCYTES % (AUTO) 24 % (12-44); MEAN CORPUSCULAR HEMOGLOBIN 30 pg (25-34); MEAN CORPUSCULAR HGB CONC 34 g/dL (32-36); MEAN CORPUSCULAR VOLUME 90 fL (80-99); MEAN PLATELET VOLUME 12.1 fL (9.0-12.2); MONOCYTES # (AUTO) 0.5 10^3/uL (0.0-1.0); MONOCYTES % (AUTO) 7 % (0-12); NEUTROPHILS # (AUTO) 4.9 10^3/uL (1.8-7.8); NEUTROPHILS % (AUTO) 67 % (42-75); PLATELET COUNT 144 10^3/uL (130-400); WHITE BLOOD COUNT 7.2 10^3/uL (4.3-11.0)
[2021-09-13 04:05] LABS: CREATININE SERUM 0.75 MG/DL (0.60-1.30)
[2021-09-13] MEDS: inSUlin ASPART (NovoLOG) 1 UNIT/0.01 ML (CHARGE PER UNIT) SC SCH ×4 (05:34→21:06)
--- NOTE | 2021-09-13 06:41 | Progress Note - Hospitalist ---
Subjective HPI/CC On Admission Date Seen by Provider: Sep 13, 2021 Time Seen by Provider: 11:00 Chief complaint: Acute kidney injury with hypotension History of present illness: This is a 66-year-old white female clinic patient of [facility] who just returned from [facility] yesterday after a hip replacement uncomplicated who began feeling weak and dizzy and in the ER was assessed to have acute kidney injury with hypotension. Upon my assessment she was lethargic and pale and ashen with hypotension so I asked for central line to be placed in ICU admission and to evaluate any source of sepsis. Patient appears to have hypovolemic status with acute kidney injury but will monitor patient closely in the ICU. Subjective/Events-last exam Patient doing much better Transferring to fourth floor Hemoglobin 9.1 Bowels are moving yet Hypotension resolved Review of Systems General: Fatigue, Malaise Neurological: Weakness Focused Exam Lactate Level 09/12/21 12:00: Lactic Acid Level 2.31*H 09/12/21 14:00: Lactic Acid Level 2.23*H 09/12/21 16:06: Lactic Acid Level 1.56 Objective Exam Vital Signs Vital Signs Date Time Temp Pulse Resp B/P (MAP) Pulse Ox O2 Delivery O2 Flow Rate FiO2 09/14/21 04:46 36.3 76 16 156/73 96 Nasal Cannula 2.00 09/12/21 16:39 91 Capillary Refill : Less Than 3 Seconds General Appearance: No Apparent Distress, WD/WN, Chronically ill Respiratory: Lungs Clear, Normal Breath Sounds Cardiovascular: Regular Rate, Rhythm Neurologic/Psychiatric: Alert, Oriented x3, No Motor/Sensory Deficits, Normal Mood/Affect Results/Procedures Lab Patient resulted labs reviewed. Assessment/Plan Assessment and Plan Assess & Plan/Chief Complaint Assessment: Hypovolemia Hypotension Acute kidney injury Elevated lactic acid from volume depletion Recent hip replacement just discharged yesterday History of hypertension Plan: ICU IV fluids Central line 09/13/21: Transfer to floor DAGMAR ORTA DO Sep 13, 2021 06:41
[2021-09-13 06:46] LABS: ALBUMIN 2.8 GM/DL (3.2-4.5)
[2021-09-13 06:49] LABS: TOTAL PROTEIN 5.8 GM/DL (6.4-8.2)
[2021-09-13 06:51] LABS: BILIRUBIN,TOTAL 0.5 MG/DL (0.1-1.0)
[2021-09-13 06:55] LABS: BILIRUBIN,DIRECT 0.3 MG/DL (0.0-0.3); BILIRUBIN,INDIRECT 0.2 MG/DL
[2021-09-13] MEDS: polyethylene glycoL POWDER 17 GM (MIRALAX) PACK PO SCH ×2 (08:21→19:49)
[2021-09-13] MEDS: DOCUSATE SODIUM 100 MG (COLACE) CAP PO SCH ×2 (08:21→19:49)
--- NOTE | 2021-09-13 09:56 | Tele-ICU Progress Note ---
Progress Note Tele ICU Admitted on 09/12 with c/c L LE "not working-" and is in pain. Pt is post THR--on RIGHT on 09/09 - also no BM since 09/09. Hx COPD Chronic home O2 at 2 lpm. , T2DM. ED placed central line for access and hypotension. Idenitified in Ed as JULIANN with creat 2.3 , Procal elev 0,38, LA 2.41 CT abd/pelvis: IMPRESSION: 1. Fat stranding and fluid as well as subcutaneous air overlying the lateral border of the right hip. If there has been no recent intervention a gas-forming infectious etiology should be clinically excluded. MRI could provide further characterization if clinically indicated. Fat stranding more distally is noted likely on the basis of edema versus cellulitis not excluded onCT. 2. Incidental findings otherwise noted within the intra-abdominal and pelvic structures. HAS bilateral hip prostheses. Post fluid LA 1.56, Creat 1.76- Still c/o LEFT hip pain- other side than most recent hip replacement on R is asymptomatic .. Plan: WIll repeat Procal and ESR now and requesting Ortho consult- d/w nursing at bedside. Focused Exam Lactate Level 09/12/21 12:00: Lactic Acid Level 2.31*H 09/12/21 14:00: Lactic Acid Level 2.23*H 09/12/21 16:06: Lactic Acid Level 1.56 Height, Weight, BMI Height: '" Weight: lbs. oz. kg; 34.54 BMI Method: GABI WATTS DO Sep 13, 2021 09:56
[2021-09-13 14:09] LABS: URIC ACID 4.4 MG/DL (2.6-7.2)
[2021-09-13] MEDS: ONDANSETRON 4 MG/2 ML (SDV) Z0FRAN IVP PRN (16:30)
[2021-09-13] MEDS ORDERED: ATOR10TA66 PO (17:39)
[2021-09-13] MEDS ORDERED: GABA300S2 PO (17:39)
[2021-09-13] MEDS ORDERED: GLBR2.5T PO (17:39)
[2021-09-13] MEDS ORDERED: OXYC5CAP18 PO (17:39)
[2021-09-13] MEDS ORDERED: MIRA50TA PO (17:39)
[2021-09-13] MEDS ORDERED: TRAM100T40 PO (17:39)
[2021-09-13] MEDS ORDERED: OMEP40CA6 PO (17:39)
[2021-09-13] MEDS ORDERED: CITA40TA11 PO (17:39)
[2021-09-13] MEDS ORDERED: LISI20TA26 PO (17:39)
[2021-09-13] MEDS ORDERED: METF-397 PO (17:39)
[2021-09-13] MEDS ORDERED: NF-COLE1GM PO (17:39)
[2021-09-13] MEDS ORDERED: SITA100T12 PO (17:39)
[2021-09-14] MEDS: LACTATED RINGERS 1,000 ML IV SCH ×2 (00:22→08:31)
[2021-09-14] MEDS: inSUlin ASPART (NovoLOG) 1 UNIT/0.01 ML (CHARGE PER UNIT) SC SCH ×6 (05:16→21:14)
[2021-09-14 05:33] LABS: BASOPHILS % (AUTO) 0 % (0-10); EOSINOPHILS # (AUTO) 0.1 10^3/uL (0.0-0.3); EOSINOPHILS % (AUTO) 2 % (0-10); HEMATOCRIT 26 % (35-52); HEMOGLOBIN 8.4 g/dL (11.5-16.0); LYMPHOCYTES # (AUTO) 2.3 10^3/uL (1.0-4.0); LYMPHOCYTES % (AUTO) 39 % (12-44); MEAN CORPUSCULAR HEMOGLOBIN 30 pg (25-34); MEAN CORPUSCULAR HGB CONC 33 g/dL (32-36); MEAN CORPUSCULAR VOLUME 90 fL (80-99); MEAN PLATELET VOLUME 11.7 fL (9.0-12.2); MONOCYTES # (AUTO) 0.5 10^3/uL (0.0-1.0); MONOCYTES % (AUTO) 9 % (0-12); NEUTROPHILS # (AUTO) 2.9 10^3/uL (1.8-7.8); NEUTROPHILS % (AUTO) 49 % (42-75); PLATELET COUNT 158 10^3/uL (130-400); WHITE BLOOD COUNT 5.9 10^3/uL (4.3-11.0)
[2021-09-14 05:47] LABS: ALBUMIN 2.6 GM/DL (3.2-4.5)
[2021-09-14 05:49] LABS: TOTAL PROTEIN 5.5 GM/DL (6.4-8.2)
[2021-09-14 05:51] LABS: BILIRUBIN,TOTAL 0.5 MG/DL (0.1-1.0)
[2021-09-14 05:53] LABS: CREATININE SERUM 0.59 MG/DL (0.60-1.30)
[2021-09-14] MEDS: polyethylene glycoL POWDER 17 GM (MIRALAX) PACK PO SCH ×2 (08:30→19:36)
[2021-09-14] MEDS: DOCUSATE SODIUM 100 MG (COLACE) CAP PO SCH ×2 (08:31→19:36)
--- NOTE | 2021-09-14 09:29 | Consultation - Ortho ---
Consult - Ortho Subjective Date of Exam 09/14/21 Chief Complaint Left Buttock Pain HPI/Events since last exam Had right ARIELLE at [place] this past Tuesday. Admitted here due to contralateral hip pain and other medical issues. I was asked to evaluate left hip pain. History of left ARIELLE and subsequent revision remotely. States she "sat down hard" on her left side while at home. Noted swelling to the area which has improved. No groin pain. No lateral or anterior thigh pain. Localizes all pain to buttock muscle. Has been standing on left lower extremity without difficulty. Has been working with therapy. Medical, Surgical History not obtained Social History not obtained Family History not obtained Review of Systems not obtained Allergies: Coded Allergies: No Known Drug Allergies (Unverified , 12/02/20) Home Meds Reported Medications Citalopram Hydrobromide (Citalopram HBr) 40 Mg Tablet 09/13/21 Gabapentin (Gabapentin) 300 Mg/6 Ml Solution, 300 MG PO HS, EA 09/13/21 Oxycodone HCl (Oxycodone HCl) 5 Mg Capsule, 5 MG PO Q4H PRN for PAIN-SEVERE (8- 10) for 7 Days, CAP 09/13/21 Tramadol HCl (Tramadol HCl) 100 Mg Tablet, 100 MG PO Q6H PRN for PAIN-MODERATE (5-7), TAB 09/13/21 Colestipol HCl (Colestid) 1 Gm Tab, 1 GM PO BID, TAB 09/13/21 Metformin HCl (Metformin HCl) 500 Mg Tablet, 500 MG PO BID, TAB 09/13/21 Glyburide (Glyburide) 2.5 Mg Tablet, 2.5 MG PO DAILY, TAB 09/13/21 Lisinopril (Lisinopril) 20 Mg Tablet, 20 MG PO DAILY, TAB 09/13/21 Mirabegron (Myrbetriq) 50 Mg Tab.er.24h, 50 MG PO DAILY, TAB 09/13/21 Atorvastatin Calcium (Atorvastatin Calcium) 10 Mg Tablet, 10 MG PO HS, TAB 09/13/21 Sitagliptin Phosphate (Januvia) 100 Mg Tablet, 100 MG PO DAILY, TAB 09/13/21 Omeprazole (Omeprazole) 40 Mg Capsule.dr, 40 MG PO DAILY, CAP 09/13/21 Objective Exam L Hip: Lateral scar, no erythema, no warmth, no significant outward swelling, tender to direct palpation over buttock. Nontender over trochanter. Sit to st and does put pressure on both legs. CT scan reviewed and demonstrated no fluid collections around the prosthesis, post surgical changes noted with gas in soft tissue on right Vital Signs Vital Signs Date Time Temp Pulse Resp B/P (MAP) Pulse Ox O2 Delivery O2 Flow Rate FiO2 09/14/21 08:00 158/92 09/14/21 08:00 36.3 77 20 202/88 94 2.00 09/14/21 04:46 36.3 76 16 156/73 96 Nasal Cannula 2.00 09/14/21 00:22 36.7 80 20 160/81 95 Nasal Cannula 2.00 09/13/21 20:19 Nasal Cannula 2.00 09/13/21 20:13 94 Nasal Cannula 2.00 09/13/21 19:54 36.8 93 20 136/65 95 Nasal Cannula 2.00 09/13/21 16:57 37.5 92 20 174/79 96 Nasal Cannula 2.00 09/13/21 12:00 84 29 165/77 93 Nasal Cannula 2.00 09/13/21 11:54 Nasal Cannula 2.00 09/13/21 11:30 36.6 09/13/21 11:00 82 25 160/81 95 Nasal Cannula 2.00 09/13/21 10:00 86 21 91 Nasal Cannula 2.00 I & O 09/14/21 07:00 Intake Total 1500 ml Output Total 3500 ml Balance -2000 ml Lab Results Laboratory Tests 09/13/21 10:41: Erythrocyte Sedimentation Rate > 140H, Uric Acid 4.4, C-Reactive Protein High Sensitivity 15.30H, Procalcitonin 0.10H 09/13/21 11:25: Glucometer 221H 09/13/21 15:47: Glucometer 148H 09/13/21 16:27: Glucometer 136H 09/13/21 20:55: Glucometer 214H 09/14/21 05:10: Glucometer 171H 09/14/21 05:21: White Blood Count 5.9, Red Blood Count 2.85L, Hemoglobin 8.4L, Hematocrit 26L, Mean Corpuscular Volume 90, Mean Corpuscular Hemoglobin 30, Mean Corpuscular Hemoglobin Concent 33, Red Cell Distribution Width 14.1, Platelet Count 158, Mean Platelet Volume 11.7, Immature Granulocyte % (Auto) 0, Neutrophils (%) (Auto) 49, Lymphocytes (%) (Auto) 39, Monocytes (%) (Auto) 9, Eosinophils (%) (Auto) 2, Basophils (%) (Auto) 0, Neutrophils # (Auto) 2.9, Lymphocytes # (Auto) 2.3, Monocytes # (Auto) 0.5, Eosinophils # (Auto) 0.1, Basophils # (Auto) 0.0, Immature Granulocyte # (Auto) 0.0, Sodium Level 136, Potassium Level 4.0, Chloride Level 100, Carbon Dioxide Level 29, Anion Gap 7, Blood Urea Nitrogen 8, Creatinine 0.59L, Estimat Glomerular Filtration Rate 102, BUN/Creatinine Ratio 14, Glucose Level 161H, Calcium Level 9.0, Corrected Calcium 10.1, Total Bi lirubin 0.5, Aspartate Amino Transf (AST/SGOT) 73H, Alanine Aminotransferase (ALT/SGPT) 67H, Alkaline Phosphatase 61, Total Protein 5.5L, Albumin 2.6L Microbiology 09/12/21 MRSA Screen - Final, Complete MRSA not isolated 09/12/21 Urine Culture - Final, Complete NO GROWTH 09/12/21 Blood Culture - Preliminary, Resulted No growth Assessment and Plan Assessment Left Buttock Pain/Contusion Problem List Left Buttock Pain/Contusion Plan Will obtain AP pelvis. Continue PT efforts. Observe for now Final Diagonsis Left Hip Pain Level of the visit: Level 3 EMELY SOUTH MD Sep 14, 2021 09:29
--- NOTE | 2021-09-14 10:00 | Physical Therapy Evaluation ---
PT Evaluation-General Medical Diagnosis Admission Date Sep 12, 2021 at 13:21 Medical Diagnosis: JULIANN/right THR/left hip pain/hypotension Onset Date: Sep 12, 2021 Therapy Diagnosis Therapy Diagnosis: debility/weakness Precautions Precautions/Isolations: Fall Prevention, Standard Precautions Referral Physician: [place] Reason for Referral: Evaluation/Treatment Medical History Pertinent Medical History: DM Additional Medical History recent right THR/left THR 2012 Current History EMS secondary to left LE "not working" Reviewed History: Yes Social History Home: Single Level Current Living Status: Spouse Prior Prior Level of Function SCALE: Activities may be completed with or without assistive devices. 9-Xzygtcznnp-xrdaqao completes the activity by him/herself with no assistance from a helper. 5-Set-up or Clean-up Assistance-helper sets up or cleans up; patient completes activity. [place] assists only prior to or following the activity. 4-Supervision or Touching Assistance-helper provides verbal cues and/or touching/steadying and/or contact guard assistance as patient completes activity. Assistance may be provided throughout the activity or intermittently. 3-Partial/Moderate Assistance-helper does LESS THAN HALF the effort. [place] lifts, holds or supports trunk or limbs, but provides less than half the effort. 2-Substantial/Maximal Assistance-helper does MORE THAN HALF the effort. [place] lifts or holds trunk or limbs and provides more than half the effort. 9-Fefpaaxrk-fftocy does ALL the effort. Patient does none of the effort to complete the activity. Or, the assistance of 2 or more helpers is required for the patient to complete the activity. If activity was not attempted, code reason: 7-Patient Refused. 9-Not Applicable-not attempted and the patient did not perform the activity before the current illness, exacerbation or injury. 10-Not Attempted due to Environmental Limitations-(lack of equipment, weather restraints, etc.). 88-Not Attempted due to Medical Conditions or Safety Concerns. Bed Mobility: 5 Transfers (B,C,W/C): 5 Gait: 5 Indoor Mobility (Ambulation): Independent Prior Devices Use: Walker PT Evaluation-Current Subjective Patient states, "I can't move. I have fibromyalgia and I just can't move." PT reassures patient she is able to move and encourages OOB activity. Patient laughs and states, "Whatever." Objective Patient Orientation: Normal For Age Attachments: Oxygen, Mckinley Catheter, IV ROM/Strength ROM Lower Extremities right THR/left guarded due to pain with slight IR left Strength Lower Extremities 3/5 grossly bilateral LE Integumentary/Posture Integumentary noted "knot" left upper gluteal region with tender to palpation Bowel Incontinence: No Bladder Incontinence: Mckinley Cath Posture WFL Neuromuscular (Tone, Coordination, Reflexes) grossly intact Sensory Vision: Functional Hearing: Functional Transfers Roll Left to Right (QC): 3 Sit to Lying (QC): 3 Lying to Sitting/Side of Bed(Q: 3 Sit to Stand (QC): 3 Chair/Bcm-hf-Vfzfn Xfer(QC): 3 Gait Does the Patient Walk?: Yes Mode of Locomotion: Walk Anticipated Mode of Locomotion: Walk Walk 10 feet (QC): 3 Walk 50 ft with 2 Turns(QC): 3 Walk 150 ft (QC): 88 Distance: 75' Gait Assistive Device: FWW Comments/Gait Description slow, steady, antalgic gait sequence Balance Sitting Static: Normal Sitting Dynamic: Normal Standing Static: Normal Standing Dynamic: Normal Picking up an Object (QC): 88 (hip precautions) Assessment/Needs 66 y.o. female, will benefit from skilled PT to address functional strength and mobility to improve current LOF to safely return to home with spouse at maximum LOF. Rehab Potential: Fair PT Jail Goals Jail Goals PT Jail Goals Time Frame: Sep 26, 2021 Roll Left & Right (QC): 5 Sit to Lying (QC): 5 Lying-Sitting on Side/Bed(QC): 5 Sit to Stand (QC): 5 Chair/Yvb-pp-Uucnp Xfer(QC): 5 Toilet Transfer (QC): 5 Walk 10 feet (QC): 5 Walk 50ft with 2 Turns (QC): 5 Walk 150 ft (QC): 5 PT Plan Problem List Problem List: Activity Tolerance, Functional Strength, Safety, Balance, Gait, Transfer, Bed Mobility Treatment/Plan Treatment Plan: Continue Plan of Care Treatment Plan: Bed Mobility, Education, Functional Activity Cleve, Functional Strength, Gait, Safety, Therapeutic Exercise, Transfers Treatment Duration: Sep 26, 2021 Frequency: 11 times per week Estimated Hrs Per Day: .5 hour per day Patient and/or Family Agrees t: Yes Time/GCodes Time In: 855 Time Out: 917 Total Billed Treatment Time: 22 Total Billed Treatment 1 visit EVModC 22 min ZECHARIAH PAYAN PT Sep 14, 2021 10:00
[2021-09-14] MEDS: LACTULOSE SYRUP 10GM/15ML (ENULOSE) 30ML UDC PO SCH ×2 (10:09→19:36)
[2021-09-14] MEDS: BISACODYL 10 MG SUPP (DULCOLAX) PR SCH (10:09)
[2021-09-14] MEDS: SENNA W/DOCUSATE (SENOKOT S) TABLET PO SCH ×2 (10:09→19:36)
--- NOTE | 2021-09-14 11:29 | Occupational Therapy Eval ---
OT Evaluation-General/PLF Medical Diagnosis Admission Date Sep 12, 2021 at 13:21 Medical Diagnosis: JULIANN/right THR/left hip pain/hypotension Onset Date: Sep 12, 2021 Therapy Diagnosis Therapy Diagnosis: impaired adls, endurance, activity tolerance, strength Precautions Precautions/Isolations: Fall Prevention, Standard Precautions Comments R ARIELLE Weight Bear Status Weight Bearing Restriction: Weight Bearing/Tolerated Location Restriction: R LE Referral Physician: Dakotah Referral Reason: Evaluation/Treatment Medical History Pertinent Medical History: DM Additional Medical History L ARIELLE-2012 R ARIELLE- 09/09/21 Current History Pt presents to ER after feeling weak/dizzy post R ARIELLE (09/09/21) performed at [facility]. She reports living with her spouse in a mobile home, 4 steps to enter. She states she owns a transition social worker, sock aid, riser, shower chair and grab bars. She states that she fell back in December and have been having increased difficulties with ADLs since. She shares IADL responsibilities with her . She no longer drives and was using a FWW prior to admission. She verbalizes that she did not receive any therapy and went straight home following hip replacement. Reviewed History: Yes Social History Home: Single Level Current Living Status: Spouse Steps Into Home: 4 ADL-Prior Level of Function SCALE: Activities may be completed with or without assistive devices. 1-Njgsjinziu-rjuvhgw completes the activity by him/herself with no assistance from a helper. 5-Set-up or Clean-up Assistance-helper sets up or cleans up; patient completes activity. [place] assists only prior to or following the activity. 4-Supervision or Touching Assistance-helper provides verbal cues and/or touching/steadying and/or contact guard assistance as patient completes activity. Assistance may be provided throughout the activity or intermittently. 3-Partial/Moderate Assistance-helper does LESS THAN HALF the effort. [place] lifts, holds or supports trunk or limbs, but provides less than half the effort. 2-Substantial/Maximal Assistance-helper does MORE THAN HALF the effort. [place] lifts or holds trunk or limbs and provides more than half the effort. 5-Oztwcmvyb-eshkmb does ALL the effort. Patient does none of the effort to complete the activity. Or, the assistance of 2 or more helpers is required for the patient to complete the activity. If activity was not attempted, code reason: 7-Patient Refused. 9-Not Applicable-not attempted and the patient did not perform the activity before the current illness, exacerbation or injury. 10-Not Attempted due to Environmental Limitations-(lack of equipment, weather restraints, etc.). 88-Not Attempted due to Medical Conditions or Safety Concerns. Self Care: Needed Some Help Functional Cognition: Unknown DME/Equipment: Bath Chair, Grab Bars, Sock Aid, Tub/Shower, Toilet/Riser Drive Self: No OT Current Status Subjective Pt sitting in chair at OT arrival, reports pain as 4/10 mostly in her buttocks region. Appearance Pt left sitting in chair, all needs within reach. Mental Status/Objective Patient Orientation: Person, Situation Attachments: Mckinley Catheter, IV, Oxygen Current Hand Dominance: Right Upper Extremity ROM Pt reports old rotator cuff repair on R shoulder. 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 ADL-Treatment Oral Hygiene (QC): 3 (balance assist per clinical judgement) Lower Body Dressing (QC): 3 (per clinical judgement ) On/Off Footwear (QC): 3 Pt sitting in chair at OT arrival. Able to verbalize 2/3 hip precautions, cues on no internal rotation. Pt reports owning a sock aid and using it in the past with old L hip surgery. Mod Cues still needed for correct use. She stood with CGA-min A and extra time for extending hips. Once upright, pt able to maintain balance with steading assist. She took 4-5 steps forward/backward with CGA and use of walker. Pt appears to have more difficulty lifting L foot vs Right. Limited distance due to not having enough oxygen line. She was able to demonstrate ability to remove UE support and maintain balance for ~30 seconds before needing to replace hands on walker. Anticipate pt able to perform cl othing management with CGA-Min A. Education OT Patient Education: Correct positioning, Energy conservation, Modified ADL techniques, Progress toward Goal/Update tx plan, Purpose of tx/functional activities, Reviewed precautions, Rehab process, Safety issues, Transfer techniques, Use of adapted equipment Teaching Recipient: Patient Teaching Methods: Demonstration, Discussion Response to Teaching: Verbalize Understanding, Return Demonstration, Reinforcement Needed OT [facility] Goals [facility] Goals Time Frame: Sep 26, 2021 Oral Hygiene (QC): 4 Toileting Hygiene (QC): 4 Lower Body Dressing (QC): 4 On/Off Footwear (QC): 4 1=Demonstrate adherence to instructed precautions during ADL tasks. 2=Patient will verbalize/demonstrate understanding of assistive devices/modifications for ADL. 3=Patient will improve strength/tolerance for activity to enable patient to perform ADL's. OT Education/Plan Problem List/Assessment Assessment: Decreased Activ Tolerance, Decreased Safety Aware, Decreased UE St rength, Impaired Bed Mobility, Impaired Funct Balance, Impaired I ADL's, Impaired Self-Care Skills Discharge Recommendations Plan/Recommendations: Continue POC Target Placement ongoing assessment Treatment Plan/Plan of Care Treatment,Training & Education: Yes Patient would benefit from OT for education, treatment and training to promote independence in ADL's, mobility, safety and/or upper extremity function for ADL's. Plan of Care: ADL Retraining, Functional Mobility, UE Funct Exercise/Act Treatment Duration: Sep 26, 2021 Frequency: 5 times per week Estimated Hrs Per Day: .25 hour per day Agreement: Yes Rehab Potential: Fair Time/GCodes Start Time: 09:42 Stop Time: 09:59 Total Time Billed (hr/min): 17 Billed Treatment Time 1 visit Ayala Bowers OT Sep 14, 2021 11:29
[2021-09-14] MEDS ORDERED: CETI10TA49 PO (13:12)
--- NOTE | 2021-09-14 13:24 | Progress Note - Hospitalist ---
Subjective HPI/CC On Admission Date Seen by Provider: Sep 14, 2021 Time Seen by Provider: 08:50 Chief complaint: Acute kidney injury with hypotension History of present illness: This is a 66-year-old white female clinic patient of [facility] who just returned from [facility] yesterday after a hip replacement uncomplicated who began feeling weak and dizzy and in the ER was assessed to have acute kidney injury with hypotension. Upon my assessment she was lethargic and pale and ashen with hypotension so I asked for central line to be placed in ICU admission and to evaluate any source of sepsis. Patient appears to have hypovolemic status with acute kidney injury but will monitor patient closely in the ICU. Focused Exam Lactate Level 09/12/21 12:00: Lactic Acid Level 2.31*H 09/12/21 14:00: Lactic Acid Level 2.23*H 09/12/21 16:06: Lactic Acid Level 1.56 Objective Exam Vital Signs Vital Signs Date Time Temp Pulse Resp B/P (MAP) Pulse Ox O2 Delivery O2 Flow Rate FiO2 09/14/21 09:53 94 Nasal Cannula 2.00 09/14/21 08:00 158/92 09/14/21 08:00 36.3 77 20 09/12/21 16:39 91 Capillary Refill : Less Than 3 Seconds General Appearance: WD/WN, Mild Distress HEENT: PERRL/EOMI Results/Procedures Lab Laboratory Tests 09/14/21 05:21 Patient resulted labs reviewed. Imaging: Reviewed Imaging Films Radiology NAME: YORDAN JUAN [facility] REC#: [id number] PT STATUS: ADM IN : 1955 PHYSICIAN: JOE KIMBROUGH APRN ADMIT DATE: 09/12/21/ICU Signed Date of Exam:09/12/21 CHEST 1 VIEW, AP/PA ONLY INDICATION: Central line placement. EXAMINATION: Chest, 09/12/2021. COMPARISON: 09/12/2021 at an earlier time. FINDINGS: The heart is prominent. Pulmonary vascular unremarkable. Atelectasis versus infiltrate suspected at the left lung base. No significant effusion. No pneumothorax. Placement of a right jugular line is noted with the tip in the distal SVC. IMPRESSION: 1. Central line, as above. 2. Possible infiltrate at the left lung base. Dictated by: Dictated on workstation # [id number] Dict: 09/12/21 1515 Trans: 09/12/21 1522 [facility] [id number] Interpreted by: SADIE LEDBETTER MD Electronically signed by: SADIE LEDBETTER MD 09/12/21 152 Meds Vital Signs Label Value Date Time Blood Pressure Assessment 09/14/21 0800 Location Left Arm Source Automatic Cuff Item Value Date Time Insulin Aspart INSULIN SLIDING SCALE ... 09/14/21 1100 (NovoLOG (CHARGE ACHS/SC PER UNIT)) Senna 2 ea 09/14/21 1000 (Senokot S BID/PO 09/14/21 1009 Tablet) Lactulose 10 gm 09/14/21 1000 (Enulose Oral BID/PO 09/14/21 1009 Solution) Bisacodyl 10 mg 09/14/21 1000 (Dulcolax DAILY/CT 09/14/21 1009 Suppository) Ondansetron HCl 4 mg 09/13/21 1600 (Zofran Q4H PRN/IVP 09/13/21 1630 Injection (Sdv)) Insulin Aspart SLIDING SCALE ICU BL... 09/12/21 2100 (NovoLOG (CHARGE ACHS/SC PER UNIT)) Oxycodone HCl 5 mg 09/12/21 1630 (Oxyir Tablet) Q4H PRN/PO 09/14/21 0830 Polyethylene 17 gm 09/12/21 1615 Glycol BID/PO 09/14/21 0830 (Miralax 17 Gm Packet) Docusate Sodium 100 mg 09/12/21 1614 (Colace Capsule) BID/PO 09/14/21 0831 Heparin Sodium 5,000 units 09/12/21 1600 (Porcine) Q8H/SC 09/14/21 0829 (HEParin INJECTION) Lactated Ringer's 1,000 ml @ 0 mls/hr 09/12/21 1200 STEWART SAVAGE Sep 14, 2021 13:24
--- NOTE | 2021-09-14 13:33 | Progress Note ---
JANETTESTEWART 09/14/21 1333: Subjective Date Seen by a Provider: Sep 14, 2021 Time Seen by a Provider: 08:50 Subjective/Events-last exam Today, Yordan is cooperative and alert She is in mild distress d/t pain s/p hip replacement on 09/09/21 Working with PT to maintain mobility; worked on sit to stand and ambulation with walker Blood pressure is elevated, IV fluids were discontinued Chest X-ray noted possible infiltrate of L lung base on 09/12/21 Repeat chest x-ray ordered along with procalcitonin Currently using 2 L N/C Currently on heparin 5000 units Review of Systems General: Fatigue, Malaise Musculoskeletal: leg pain Focused Exam Sepsis Stage: Ruled Out Reason for ruling out sepsis: No SIRS criteria present Lactate Level 09/12/21 12:00: Lactic Acid Level 2.31*H 09/12/21 14:00: Lactic Acid Level 2.23*H 09/12/21 16:06: Lactic Acid Level 1.56 Respiratory: Normal Breath Sounds, No Accessory Muscle Use, No Respiratory Distress Cardiovascular: Regular Rate, Rhythm Skin: normal color, warm/dry Objective Exam Last Set of Vital Signs Vital Signs Date Time Temp Pulse Resp B/P (MAP) Pulse Ox O2 Delivery O2 Flow Rate FiO2 09/14/21 09:53 94 Nasal Cannula 2.00 09/14/21 08:00 158/92 09/14/21 08:00 36.3 77 20 09/12/21 16:39 91 Capillary Refill : Less Than 3 Seconds I&O Intake and Output 09/14/21 00:00 Intake Total 2800 ml Output Total 3500 ml Balance -700 ml Intake Oral 1800 ml IV Total 1000 ml Output Urine Total 3500 ml General: Alert, Oriented X3, Cooperative, Mild Distress HEENT: PERRLA Lungs: Clear to Auscultation Heart: Regular Rate Abdomen: Normal Bowel Sounds Neuro: Normal Speech Psych/Mental Status: Mental Status NL Results Lab Laboratory Tests 09/13/21 15:47: Glucometer 148H 09/13/21 16:27: Glucometer 136H 09/13/21 20:55: Glucometer 214H 09/14/21 05:10: Glucometer 171H 09/14/21 05:21: White Blood Count 5.9, Red Blood Count 2.85L, Hemoglobin 8.4L, Hematocrit 26L, Mean Corpuscular Volume 90, Mean Corpuscular Hemoglobin 30, Mean Corpuscular Hemoglobin Concent 33, Red Cell Distribution Width 14.1, Platelet Count 158, Mean Platelet Volume 11.7, Immature Granulocyte % (Auto) 0, Neutrophils (%) (Auto) 49, Lymphocytes (%) (Auto) 39, Monocytes (%) (Auto) 9, Eosinophils (%) (Auto) 2, Basophils (%) (Auto) 0, Neutrophils # (Auto) 2.9, Lymphocytes # (Auto) 2.3, Monocytes # (Auto) 0.5, Eosinophils # (Auto) 0.1, Basophils # (Auto) 0.0, I mmature Granulocyte # (Auto) 0.0, Sodium Level 136, Potassium Level 4.0, Chloride Level 100, Carbon Dioxide Level 29, Anion Gap 7, Blood Urea Nitrogen 8, Creatinine 0.59L, Estimat Glomerular Filtration Rate 102, BUN/Creatinine Ratio 14, Glucose Level 161H, Calcium Level 9.0, Corrected Calcium 10.1, Total Bilirubin 0.5, Aspartate Amino Transf (AST/SGOT) 73H, Alanine Aminotransferase (ALT/SGPT) 67H, Alkaline Phosphatase 61, Total Protein 5.5L, Albumin 2.6L, Procalcitonin 0.10H 09/14/21 10:14: Glucometer 173H Microbiology 09/12/21 MRSA Screen - Final, Complete MRSA not isolated 09/12/21 Urine Culture - Final, Complete NO GROWTH 09/12/21 Blood Culture - Preliminary, Resulted No growth Meds Item Value Date Time Insulin Aspart INSULIN SLIDING SCALE ... 09/14/21 1100 (NovoLOG (CHARGE ACHS/SC PER UNIT)) Senna 2 ea 09/14/21 1000 (Senokot S BID/PO 09/14/21 1009 Tablet) Lactulose 10 gm 09/14/21 1000 (Enulose Oral BID/PO 09/14/21 1009 Solution) Bisacodyl 10 mg 09/14/21 1000 (Dulcolax DAILY/OR 09/14/21 1009 Suppository) Ondansetron HCl 4 mg 09/13/21 1600 (Zofran Q4H PRN/IVP 09/13/21 1630 Injection (Sdv)) Insulin Aspart SLIDING SCALE ICU BL... 09/12/21 2100 (NovoLOG (CHARGE ACHS/SC PER UNIT)) Oxycodone HCl 5 mg 09/12/21 1630 (Oxyir Tablet) Q4H PRN/PO 09/14/21 0830 Polyethylene 17 gm 09/12/21 1615 Glycol BID/PO 09/14/21 0830 (Miralax 17 Gm Packet) Docusate Sodium 100 mg 09/12/21 1614 (Colace Capsule) BID/PO 09/14/21 0831 Heparin Sodium 5,000 units 09/12/21 1600 (Porcine) Q8H/SC 09/14/21 0829 (HEParin INJECTION) Lactated Ringer's 1,000 ml @ 0 mls/hr 09/12/21 1200 Radiology [facility] [place] NAME: YORDAN JUAN [facility] REC#: [id number] PT STATUS: ADM IN : 1955 PHYSICIAN: JOE KIMBROUGH APRN ADMIT DATE: 09/12/21/ICU Signed Date of Exam:09/12/21 CHEST 1 VIEW, AP/PA ONLY INDICATION: Central line placement. EXAMINATION: Chest, 09/12/2021. COMPARISON: 09/12/2021 at an earlier time. FINDINGS: The heart is prominent. Pulmonary vascular unremarkable. Atelectasis versus infiltrate suspected at the left lung base. No significant effusion. No pneumothorax. Placement of a right jugular line is noted with the tip in the distal SVC. IMPRESSION: 1. Central line, as above. 2. Possible infiltrate at the left lung base. Dictated by: Dictated on workstation # [id number] Dict: 09/12/21 1515 Trans: 09/12/21 1522 [facility] [id number] Interpreted by: SADIE LEDBETTER MD Electronically signed by: SADIE LEDBETTER MD 09/12/21 1522 Assessment/Plan Assessment/Plan Assess & Plan/Chief Complaint Assessment/Plan 1. Acute kidney injury Monitor creatinine closely 2. Hypovolemia 3. Hypotension 4. Elevated lactic acid from volume depletion Fluids discontinued Hypotension has resolved Closely monitor 5. Abnormal Chest X-Ray Repeat Chest X-ray on 09/12/21 demonstrated infiltrate of left lunf base Repeat EKG today (09/14/21) Assess procalcitonin 6. Recent hip replacement Continue PT/OT 7. History of HTN Blood pressure is elevated s/p HYPOtension (09/14/21) Monitor closely BLANK GARVEY DO 09/15/21 0553: Subjective Subjective/Events-last exam Patient feels better Still appears to be fatigued IVF will be DC to prevent overload Pain is controlled IRF? Review of Systems Musculoskeletal: leg pain Objective Exam General: Alert, Oriented X3, Cooperative, No Acute Distress Lungs: Clear to Auscultation, Normal Air Movement Neuro: Normal Speech Psych/Mental Status: Mental Status NL Assessment/Plan Assessment/Plan Assess & Plan/Chief Complaint Assessment: Hypovolemia Hypotension Acute kidney injury Elevated lactic acid from volume depletion Recent hip replacement just discharged yesterday History of hypertension Plan: ICU IV fluids Central line 09/13/21: Transfer to floor 09/14/21: HLIVF PT OT IRF? Supervisory-Addendum Brief Verification & Attestation Participated in pt care: history, MDM, physical Personally performed: exam, history, MDM, supervision of care Care discussed with: Medical Student Procedures: n/a Results interpretation: Verified all documentation Verification and Attestation of Medical Student E/M Service A medical student performed and documented this service in my presence. I reviewed and verified all information documented by the medical student and made modifications to such information, when appropriate. I personally performed the physical exam and medical decision making. Blank Garvey, Sep 15, 2021,05:51 STEWART SAVAGE Sep 14, 2021 13:33 BLANK GARVEY DO Sep 15, 2021 05:53
[2021-09-14] MEDS ORDERED: OXYC5TAB PO (13:47)
[2021-09-14] MEDS ORDERED: CYCL10TA9 PO (13:48)
[2021-09-14] MEDS ORDERED: TRAM50TA3 PO (13:50)
[2021-09-14] MEDS ORDERED: GABA300C PO ×2 (13:51→14:03)
[2021-09-14] MEDS ORDERED: ACET-168 PO (13:54)
[2021-09-14] MEDS ORDERED: METF-865 PO (13:59)
--- NOTE | 2021-09-14 14:13 | Physical Therapy Daily Note ---
PT Daily Note-Current Subjective Patient incontinent BM requiring assist to cleanse and change. Mental Status Patient Orientation: Person, Time, Situation Attachments: Oxygen, Mckinley Catheter Transfers SCALE: Activities may be completed with or without assistive devices. 2-Dxmdbtymib-wkxeiqy completes the activity by him/herself with no assistance from a helper. 5-Set-up or Clean-up Assistance-helper sets up or cleans up; patient completes activity. [place] assists only prior to or following the activity. 4-Supervision or Touching Assistance-helper provides verbal cues and/or touching/steadying and/or contact guard assistance as patient completes activity. Assistance may be provided throughout the activity or intermittently. 3-Partial/Moderate Assistance-helper does LESS THAN HALF the effort. [place] lifts, holds or supports trunk or limbs, but provides less than half the effort. 2-Substantial/Maximal Assistance-helper does MORE THAN HALF the effort. [place] lifts or holds trunk or limbs and provides more than half the effort. 1-Lnyoyhjam-fzyhzh does ALL the effort. Patient does none of the effort to complete the activity. Or, the assistance of 2 or more helpers is required for the patient to complete the activity. If activity was not attempted, code reason: 7-Patient Refused. 9-Not Applicable-not attempted and the patient did not perform the activity before the current illness, exacerbation or injury. 10-Not Attempted due to Environmental Limitations-(lack of equipment, weather restraints, etc.). 88-Not Attempted due to Medical Conditions or Safety Concerns. Roll Left & Right (QC): 2 Lying to Sitting/Side of Bed(Q: 3 Sit to Stand (QC): 4 Toilet Transfer (QC): 4 patient transferred to [facility] to continue BM Gait Training Distance: 5' Gait Assistive Device: FWW Exercises Seated Therapy Exercises: Ankle pumps, Long arc quads Seated Reps: 12 Assessment Patient up to [facility] and dismissed PT to talk on the phone. PT to increase activity as tolerated or allowed by patient. PT Spot Sprayer Goals Spot Sprayer Goals PT Alf Goals Time Frame: Sep 26, 2021 Roll Left & Right (QC): 5 Sit to Lying (QC): 5 Lying-Sitting on Side/Bed(QC): 5 Sit to Stand (QC): 5 Chair/Mmq-mr-Exljf Xfer(QC): 5 Toilet Transfer (QC): 5 Walk 10 feet (QC): 5 Walk 50ft with 2 Turns (QC): 5 Walk 150 ft (QC): 5 PT Plan Treatment/Plan Treatment Plan: Continue Plan of Care Treatment Plan: Bed Mobility, Education, Functional Activity [place], Functional Strength, Gait, Safety, Therapeutic Exercise, Transfers Treatment Duration: Sep 26, 2021 Frequency: 11 times per week Estimated Hrs Per Day: .5 hour per day Patient and/or Family Agrees t: Yes Time/GCodes Time In: 1325 Time Out: 1341 Total Billed Treatment Time: 16 Total Billed Treatment 1 visit FA 16 min ZECHARIAH PAYAN PT Sep 14, 2021 14:13
[2021-09-14] MEDS ORDERED: LOPE1LIQ7 PO (14:22)
[2021-09-14] MEDS ORDERED: LOPE-134 PO (15:15)
--- NOTE | 2021-09-14 16:13 | Diagnostic Imaging Report ---
INDICATION: Left hip pain. COMPARISON: Comparison with previous pelvis of 12/02/2020. FINDINGS: AP pelvis shows bilateral arthroplasties now present. Acetabular and femoral components appear in good alignment. SI joints and pubic symphysis are in good alignment. No pelvic fractures are demonstrated. IMPRESSION: Bilateral hip arthroplasties with no acute abnormalities noted. Dictated by: Dictated on workstation # [id number]
--- NOTE | 2021-09-14 16:20 | Diagnostic Imaging Report ---
INDICATION: Pulmonary infiltrate. COMPARISON: 09/12/2021. FINDINGS: There is a mild linear atelectasis in the left lung base. No consolidated infiltrates are noted today. The heart is in upper limits of normal. The upper lungs are clear. The central line on the right remains unchanged. No pneumothorax or pleural effusion. IMPRESSION: 1. No findings to indicate consolidated infiltrate on today's exam. There is some mild linear atelectasis in the left lung base. Dictated by: Dictated on workstation # [id number]
[2021-09-15 04:55] LABS: BASOPHILS % (AUTO) 1 % (0-10); EOSINOPHILS # (AUTO) 0.2 10^3/uL (0.0-0.3); EOSINOPHILS % (AUTO) 3 % (0-10); HEMATOCRIT 27 % (35-52); HEMOGLOBIN 8.7 g/dL (11.5-16.0); LYMPHOCYTES # (AUTO) 2.4 10^3/uL (1.0-4.0); LYMPHOCYTES % (AUTO) 39 % (12-44); MEAN CORPUSCULAR HEMOGLOBIN 29 pg (25-34); MEAN CORPUSCULAR HGB CONC 32 g/dL (32-36); MEAN CORPUSCULAR VOLUME 90 fL (80-99); MEAN PLATELET VOLUME 11.7 fL (9.0-12.2); MONOCYTES # (AUTO) 0.6 10^3/uL (0.0-1.0); MONOCYTES % (AUTO) 9 % (0-12); NEUTROPHILS # (AUTO) 3.1 10^3/uL (1.8-7.8); NEUTROPHILS % (AUTO) 49 % (42-75); PLATELET COUNT 188 10^3/uL (130-400); WHITE BLOOD COUNT 6.3 10^3/uL (4.3-11.0)
[2021-09-15 05:10] LABS: ALBUMIN 2.6 GM/DL (3.2-4.5); POTASSIUM 3.9 MMOL/L (3.6-5.0)
[2021-09-15 05:11] LABS: CALCIUM 9.2 MG/DL (8.5-10.1)
[2021-09-15 05:12] LABS: TOTAL PROTEIN 5.5 GM/DL (6.4-8.2)
[2021-09-15] MEDS: inSUlin ASPART (NovoLOG) 1 UNIT/0.01 ML (CHARGE PER UNIT) SC SCH ×4 (05:13→21:40)
[2021-09-15 05:14] LABS: BILIRUBIN,TOTAL 0.4 MG/DL (0.1-1.0)
[2021-09-15 05:16] LABS: CREATININE SERUM 0.64 MG/DL (0.60-1.30)
--- NOTE | 2021-09-15 08:28 | Occupational Ther Daily Note ---
OT Current Status-Daily Note Subjective Pt, alert, laying in bed when OT entered. Pt requested assist with ordering breakfast. No c/o pain reported. Mental Status/Objective Patient Orientation: Person, Place, Time, Situation Attachments: Mckinley Catheter, IV, Oxygen ADL-Treatment Pt agreed to of brushing teeth. When asked if wanted to complete at bathroom sink or at bed, pt stated "at bed, it's hard for me to move." After set, pt completed oral hygiene while laying in bed. After therapy, pt laying in bed. Call light in reach and all needs met. Therapy Code Descriptions/Definitions Functional [place] Measure: 0=Not Assessed/NA 4=Minimal Assistance 1=Total Assistance 5=Supervision or Setup 2=Maximal Assistance 6=Modified [place] 3=Moderate Assistance 7=Complete IndependenceSCALE: Activities may be completed with or without assistive devices. 7-Zwpscmckwe-ybpfvjx completes the activity by him/herself with no assistance from a helper. 5-Set-up or Clean-up Assistance-helper sets up or cleans up; patient completes activity. [place] assists only prior to or following the activity. 4-Supervision or Touching Assistance-helper provides verbal cues and/or touching/steadying and/or contact guard assistance as patient completes activity. Assistance may be provided throughout the activity or intermittently. 3-Partial/Moderate Assistance-helper does LESS THAN HALF the effort. [place] lifts, holds or supports trunk or limbs, but provides less than half the effort. 2-Substantial/Maximal Assistance-helper does MORE THAN HALF the effort. [place] lifts or holds trunk or limbs and provides more than half the effort. 2-Zdoytvtmh-qncmyk does ALL the effort. Patient does none of the effort to complete the activity. Or, the assistance of 2 or more helpers is required for the patient to complete the activity. If activity was not attempted, code reason: 7-Patient Refused. 9-Not Applicable-not attempted and the patient did not perform the activity before the current illness, exacerbation or injury. 10-Not Attempted due to Environmental Limitations-(lack of equipment, weather restraints, etc.). 88-Not Attempted due to Medical Conditions or Safety Concerns. Other Treatment Pt introduced to LB AE of sock aid, dressing stick, and long handled specimen boss to maintain hip precautions when completing LB dressing and don/doff socks. Pt stated she already knows how to use them, will perform using sock aid next session. Education OT Patient Education: Correct positioning, Modified ADL techniques, Use of adapted equipment Teaching Recipient: Patient Teaching Methods: Demonstration, Discussion Response to Teaching: Verbalize Understanding, Return Demonstration OT Snf Goals Utility Operator Yarn Goals Time Frame: Sep 26, 2021 Oral Hygiene (QC): 4 Toileting Hygiene (QC): 4 Lower Body Dressing (QC): 4 On/Off Footwear (QC): 4 1=Demonstrate adherence to instructed precautions during ADL tasks. 2=Patient will verbalize/demonstrate understanding of assistive devices/m odifications for ADL. 3=Patient will improve strength/tolerance for activity to enable patient to perform ADL's. OT Education/Plan Problem List/Assessment Assessment: Decreased Activ Tolerance, Decreased UE Strength, Impaired Self- Care Skills, Restricted Funct UE ROM Discharge Recommendations Plan/Recommendations: Continue POC Treatment Plan/Plan of Care Patient would benefit from OT for education, treatment and training to promote independence in ADL's, mobility, safety and/or upper extremity function for ADL's. Plan of Care: ADL Retraining, Functional Mobility, UE Funct Exercise/Act Treatment Duration: Sep 26, 2021 Frequency: 5 times per week Estimated Hrs Per Day: .25 hour per day Agreement: Yes Rehab Potential: Fair Time/GCodes Start Time: 08:08 Stop Time: 08:20 Total Time Billed (hr/min): 12 Billed Treatment Time 1 visit- ADL 1 (12 mins) SILVERIO FRANCISCO Sep 15, 2021 08:28
--- NOTE | 2021-09-15 09:25 | Physical Therapy Daily Note ---
PT Daily Note-Current Subjective Patient reluctantly agrees to PT. Pain Numeric Pain Scale: 5-Moderate Pain Location: Right Location Body Site: Hip Pain Description: Acute Mental Status Patient Orientation: Person, Time, Situation Attachments: Oxygen, Mckinley Catheter Transfers SCALE: Activities may be completed with or without assistive devices. 7-Pimkftjbkx-oyszwls completes the activity by him/herself with no assistance from a helper. 5-Set-up or Clean-up Assistance-helper sets up or cleans up; patient completes activity. [place] assists only prior to or following the activity. 4-Supervision or Touching Assistance-helper provides verbal cues and/or touching/steadying and/or contact guard assistance as patient completes activity. Assistance may be provided throughout the activity or intermittently. 3-Partial/Moderate Assistance-helper does LESS THAN HALF the effort. [place] lifts, holds or supports trunk or limbs, but provides less than half the effort. 2-Substantial/Maximal Assistance-helper does MORE THAN HALF the effort. [place] lifts or holds trunk or limbs and provides more than half the effort. 8-Hownsykvy-yaxqcz does ALL the effort. Patient does none of the effort to complete the activity. Or, the assistance of 2 or more helpers is required for the patient to complete the activity. If activity was not attempted, code reason: 7-Patient Refused. 9-Not Applicable-not attempted and the patient did not perform the activity before the current illness, exacerbation or injury. 10-Not Attempted due to Environmental Limitations-(lack of equipment, weather restraints, etc.). 88-Not Attempted due to Medical Conditions or Safety Concerns. Lying to Sitting/Side of Bed(Q: 4 Sit to Stand (QC): 4 Chair/Cfj-mh-Tlogg Xfer(QC): 4 CGA for safety with sit to stand and chair transfer Gait Training Does the Patient Walk?: Yes Distance: 40' Walk 10 feet (QC): 4 Gait Assistive Device: FWW slow, steady gait sequence Exercises Supine Ex: Ankle pumps, Quad Set, Heel Slides Supine Reps: 10 Seated Therapy Exercises: Long arc quads Seated Reps: 15 Assessment Patient tolerates minimal activity and ceased treatment. Patient's breakfast did arrive and PT set up on tray. Increase activity as tolerated by patient. PT Protective Officer Goals Protective Officer Goals PT Alf Goals Time Frame: Sep 26, 2021 Roll Left & Right (QC): 5 Sit to Lying (QC): 5 Lying-Sitting on Side/Bed(QC): 5 Sit to Stand (QC): 5 Chair/Dbg-fj-Ydnrl Xfer(QC): 5 Toilet Transfer (QC): 5 Walk 10 feet (QC): 5 Walk 50ft with 2 Turns (QC): 5 Walk 150 ft (QC): 5 PT Plan Treatment/Plan Treatment Plan: Continue Plan of Care Treatment Plan: Bed Mobility, Education, Functional Activity Cleve, Functional Strength, Gait, Safety, Therapeutic Exercise, Transfers Treatment Duration: Sep 26, 2021 Frequency: 11 times per week Estimated Hrs Per Day: .5 hour per day Patient and/or Family Agrees t: Yes Time/GCodes Time In: 835 Time Out: 851 Total Billed Treatment Time: 16 Total Billed Treatment 1 visit FA 16 min ZECHARIAH PAYAN PT Sep 15, 2021 09:25
[2021-09-15] MEDS: polyethylene glycoL POWDER 17 GM (MIRALAX) PACK PO SCH ×2 (09:47→21:39)
[2021-09-15] MEDS: SENNA W/DOCUSATE (SENOKOT S) TABLET PO SCH ×2 (09:48→21:39)
[2021-09-15] MEDS: LACTULOSE SYRUP 10GM/15ML (ENULOSE) 30ML UDC PO SCH ×2 (09:48→21:39)
[2021-09-15] MEDS: DOCUSATE SODIUM 100 MG (COLACE) CAP PO SCH ×2 (09:48→21:39)
[2021-09-15] MEDS: BISACODYL 10 MG SUPP (DULCOLAX) PR SCH (09:48)
--- NOTE | 2021-09-15 10:51 | Occupational Ther Daily Note ---
OT Current Status-Daily Note ADL-Treatment Therapy Code Descriptions/Definitions Functional [place] Measure: 0=Not Assessed/NA 4=Minimal Assistance 1=Total Assistance 5=Supervision or Setup 2=Maximal Assistance 6=Modified [place] 3=Moderate Assistance 7=Complete IndependenceSCALE: Activities may be completed with or without assistive devices. 9-Bedhnqwzzs-ymvrjvv completes the activity by him/herself with no assistance from a helper. 5-Set-up or Clean-up Assistance-helper sets up or cleans up; patient completes activity. [place] assists only prior to or following the activity. 4-Supervision or Touching Assistance-helper provides verbal cues and/or touching/steadying and/or contact guard assistance as patient completes activity. Assistance may be provided throughout the activity or intermittently. 3-Partial/Moderate Assistance-helper does LESS THAN HALF the effort. [place] lifts, holds or supports trunk or limbs, but provides less than half the effort. 2-Substantial/Maximal Assistance-helper does MORE THAN HALF the effort. [place] lifts or holds trunk or limbs and provides more than half the effort. 2-Lygtbzmlc-obvgse does ALL the effort. Patient does none of the effort to complete the activity. Or, the assistance of 2 or more helpers is required for the patient to complete the activity. If activity was not attempted, code reason: 7-Patient Refused. 9-Not Applicable-not attempted and the patient did not perform the activity before the current illness, exacerbation or injury. 10-Not Attempted due to Environmental Limitations-(lack of equipment, weather restraints, etc.). 88-Not Attempted due to Medical Conditions or Safety Concerns. OT [facility] Goals Sorting Machine Attendant Goals Time Frame: Sep 26, 2021 Oral Hygiene (QC): 4 Toileting Hygiene (QC): 4 Lower Body Dressing (QC): 4 On/Off Footwear (QC): 4 1=Demonstrate adherence to instructed precautions during ADL tasks. 2=Patient will verbalize/demonstrate understanding of assistive devices/modifications for ADL. 3=Patient will improve strength/tolerance for activity to enable patient to perform ADL's. OT Education/Plan Treatment Plan/Plan of Care Patient would benefit from OT for education, treatment and training to promote independence in ADL's, mobility, safety and/or upper extremity function for ADL's. Plan of Care: ADL Retraining, Functional Mobility, UE Funct Exercise/Act Treatment Duration: Sep 26, 2021 Frequency: 5 times per week Estimated Hrs Per Day: .25 hour per day Agreement: Yes Rehab Potential: SILVERIO Giron Sep 15, 2021 10:51
--- NOTE | 2021-09-15 13:05 | Progress Note - Hospitalist ---
JANETTESTEWART 09/15/21 1305: Subjective HPI/CC On Admission Date Seen by Provider: Sep 15, 2021 Time Seen by Provider: 08:30 Chief complaint: Acute kidney injury with hypotension History of present illness: This is a 66-year-old white female clinic patient of [facility] who just returned from [facility] yesterday after a hip replacement uncomplicated who began feeling weak and dizzy and in the ER was assessed to have acute kidney injury with hypotension. Upon my assessment she was lethargic and pale and ashen with hypotension so I asked for central line to be placed in ICU admission and to evaluate any source of sepsis. Patient appears to have hypovolemic status with acute kidney injury but will monitor patient closely in the ICU. Subjective/Events-last exam Today, Yordan was sitting in her recliner eating breakfast States that her appetite is returning, and continues to put in effort to eat Has had a bowel movement Has significant pain in L hip, especially with movement, pain medication helps Continues to work with PT/OT, and is considering inpatient rehab Repeat Chest X-ray today did not show evidence of consolidated infiltrate Review of Systems Musculoskeletal: leg pain Focused Exam Sepsis Stage: Ruled Out Lactate Level 09/12/21 14:00: Lactic Acid Level 2.23*H 09/12/21 16:06: Lactic Acid Level 1.56 Respiratory: Chest Non Tender, Lungs Clear, Normal Breath Sounds, No Accessory Muscle Use, No Respiratory Distress Cardiovascular: Regular Rate, Rhythm Skin: normal color, warm/dry, rash, ulcerations Objective Exam Vital Signs Vital Signs Date Time Temp Pulse Resp B/P (MAP) Pulse Ox O2 Delivery O2 Flow Rate FiO2 09/15/21 11:28 36.5 80 22 175/83 97 Nasal Cannula 2.00 09/12/21 16:39 91 Capillary Refill : Less Than 3 Seconds General Appearance: No Apparent Distress, WD/WN HEENT: PERRL/EOMI Respiratory: Chest Non Tender, Lungs Clear, Normal Breath Sounds, No Accessory Muscle Use, No Respiratory Distress Cardiovascular: Regular Rate, Rhythm Extremity: Normal Capillary Refill, Normal Inspection Neurologic/Psychiatric: Alert, Oriented x3, No Motor/Sensory Deficits, Normal Mood/Affect, stationary engineer II-XII Norm as Tested Results/Procedures Lab Laboratory Tests 09/15/21 04:40 Patient resulted labs reviewed. Imaging: Reviewed Imaging Films Radiology NAME: YORDAN JUAN [facility] REC#: [id number] PT STATUS: ADM IN : 1955 PHYSICIAN: BLANK GARVEY DO ADMIT DATE: 09/12/21 Signed Date of Exam:09/14/21 CHEST PA/LAT (2 VIEW) INDICATION: Pulmonary infiltrate. COMPARISON: 09/12/2021. FINDINGS: There is a mild linear atelectasis in the left lung base. No consolidated infiltrates are noted today. The heart is in upper limits of normal. The upper lungs are clear. The central line on the right remains unchanged. No pneumothorax or pleural effusion. IMPRESSION: 1. No findings to indicate consolidated infiltrate on today's exam. There is some mild linear atelectasis in the left lung base. Dictated by: Dictated on workstation # [id number] Dict: 09/14/21 1610 Trans: 09/14/21 1631 CVB [id number] Interpreted by: MATIAS POLLARD MD Electronically signed by: MATIAS POLLARD MD 09/14/21 1631 Meds Item Value Date Time Insulin Aspart INSULIN SLIDING SCALE ... 09/14/21 1100 (NovoLOG (CHARGE ACHS/SC 09/15/21 1203 PER UNIT)) Senna 2 ea 09/14/21 1000 (Senokot S BID/PO 09/15/21 0948 Tablet) Lactulose 10 gm 09/14/21 1000 (Enulose Oral BID/PO 09/15/21 0948 Solution) Bisacodyl 10 mg 09/14/21 1000 (Dulcolax DAILY/SD 09/15/21 0948 Suppository) Ondansetron HCl 4 mg 09/13/21 1600 (Zofran Q4H PRN/IVP 09/13/21 1630 Injection (Sdv)) Oxycodone HCl 5 mg 09/12/21 1630 (Oxyir Tablet) Q4H PRN/PO 09/15/21 1206 Polyethylene 17 gm 09/12/21 1615 Glycol BID/PO 09/15/21 0947 (Miralax 17 Gm Packet) Heparin Sodium 5,000 units 09/12/21 1600 (Porcine) Q8H/SC 09/15/21 0951 (HEParin INJECTION) Docusate Sodium 100 mg 09/12/21 1614 (Colace Capsule) BID/PO 09/15/21 0948 Lactated Ringer's 1,000 ml @ 0 mls/hr 09/12/21 1200 Assessment/Plan Assessment and Plan Assess & Plan/Chief Complaint 1. Acute kidney injury Monitor creatinine closely 2. Hypovolemia 3. Hypotension 4. Elevated lactic acid from volume depletion Fluids discontinued Currently HYPERtensive Closely monitor 5. Abnormal Chest X-Ray Repeat Chest X-ray on 09/12/21 demonstrated infiltrate of left lung base Repeat Chest X-ray on 09/14/21 did not show any evidence of consolidated infiltrate Procalcitonin of 0.1, not concerning for bacterial infection 6. Recent hip replacement Continue PT/OT 7. History of HTN Blood pressure is elevated s/p HYPOtension (09/14/21) Monitor closely BLANK GARVEY DO 09/16/21 0556: Subjective Subjective/Events-last exam Patient doing well Minimal motivation Unsure if she wants to be more active Review of Systems General: Fatigue, Malaise Musculoskeletal: leg pain Objective Exam General Appearance: No Apparent Distress, WD/WN, Chronically ill Respiratory: Lungs Clear, Normal Breath Sounds Cardiovascular: Regular Rate, Rhythm Neurologic/Psychiatric: Alert, Oriented x3, No Motor/Sensory Deficits, Normal Mood/Affect Assessment/Plan Assessment and Plan Assess & Plan/Chief Complaint Increase fluids Monitor creat Supervisory-Addendum Brief Verification & Attestation Participated in pt care: history, MDM, physical Personally performed: exam, history, MDM, supervision of care Care discussed with: Medical Student Procedures: n/a Results interpretation: Verified all documentation Verification and Attestation of Medical Student E/M Service A medical student performed and documented this service in my presence. I revi ewed and verified all information documented by the medical student and made modifications to such information, when appropriate. I personally performed the physical exam and medical decision making. Blank Garvey, Sep 16, 2021,05:54 STEWART SAVAGE Sep 15, 2021 13:05 BLANK GARVEY DO Sep 16, 2021 05:56
--- NOTE | 2021-09-15 13:58 | Physical Therapy Daily Note ---
PT Daily Note-Current Subjective Patient just completed lunch and states, "This meal was amazing. The food here is so good." Spouse present. Mental Status Patient Orientation: Person, Time, Situation Transfers SCALE: Activities may be completed with or without assistive devices. 0-Arddtqdbcs-zdpjmcg completes the activity by him/herself with no assistance from a helper. 5-Set-up or Clean-up Assistance-helper sets up or cleans up; patient completes activity. [place] assists only prior to or following the activity. 4-Supervision or Touching Assistance-helper provides verbal cues and/or touching/steadying and/or contact guard assistance as patient completes activity. Assistance may be provided throughout the activity or intermittently. 3-Partial/Moderate Assistance-helper does LESS THAN HALF the effort. [place] lifts, holds or supports trunk or limbs, but provides less than half the effort. 2-Substantial/Maximal Assistance-helper does MORE THAN HALF the effort. [place] lifts or holds trunk or limbs and provides more than half the effort. 0-Basscjxrs-xewszg does ALL the effort. Patient does none of the effort to complete the activity. Or, the assistance of 2 or more helpers is required for the patient to complete the activity. If activity was not attempted, code reason: 7-Patient Refused. 9-Not Applicable-not attempted and the patient did not perform the activity before the current illness, exacerbation or injury. 10-Not Attempted due to Environmental Limitations-(lack of equipment, weather restraints, etc.). 88-Not Attempted due to Medical Conditions or Safety Concerns. Sit to Stand (QC): 4 Chair/Vba-vw-Nhhhg Xfer(QC): 4 Gait Training Distance: 125' Walk 10 feet (QC): 4 Walk 50 ft with 2 Turns(QC): 4 Walk 150 ft (QC): 88 Gait Assistive Device: FWW slow, steady, functional gait sequence Exercises Seated Therapy Exercises: Ankle pumps, Long arc quads Seated Reps: 15 Assessment Patient remains up in recliner per her request. Ceases treatment due to muscle cramping. RN notified that patient requests a muscle relaxer. PT to increase activity as tolerated/allow by patient. PT Batch Plant Supervisor Goals [facility] Goals PT Batch Plant Supervisor Goals Time Frame: Sep 26, 2021 Roll Left & Right (QC): 5 Sit to Lying (QC): 5 Lying-Sitting on Side/Bed(QC): 5 Sit to Stand (QC): 5 Chair/Vwv-on-Qahhd Xfer(QC): 5 Toilet Transfer (QC): 5 Walk 10 feet (QC): 5 Walk 50ft with 2 Turns (QC): 5 Walk 150 ft (QC): 5 PT Plan Treatment/Plan Treatment Plan: Continue Plan of Care Treatment Plan: Bed Mobility, Education, Functional Activity Cleve, Functional Strength, Gait, Safety, Therapeutic Exercise, Transfers Treatment Duration: Sep 26, 2021 Frequency: 11 times per week Estimated Hrs Per Day: .5 hour per day Patient and/or Family Agrees t: Yes Time/GCodes Time In: 1320 Time Out: 1333 Total Billed Treatment Time: 13 Total Billed Treatment 1 visit FA 13 min ZECHARIAH PAYAN PT Sep 15, 2021 13:58
[2021-09-15] MEDS: ONDANSETRON 4 MG/2 ML (SDV) Z0FRAN IVP PRN (21:39)
[2021-09-16 05:09] LABS: BASOPHILS % (AUTO) 0 % (0-10); EOSINOPHILS # (AUTO) 0.3 10^3/uL (0.0-0.3); EOSINOPHILS % (AUTO) 4 % (0-10); HEMATOCRIT 30 % (35-52); HEMOGLOBIN 9.6 g/dL (11.5-16.0); LYMPHOCYTES # (AUTO) 2.6 10^3/uL (1.0-4.0); LYMPHOCYTES % (AUTO) 35 % (12-44); MEAN CORPUSCULAR HEMOGLOBIN 29 pg (25-34); MEAN CORPUSCULAR HGB CONC 33 g/dL (32-36); MEAN CORPUSCULAR VOLUME 90 fL (80-99); MEAN PLATELET VOLUME 11.5 fL (9.0-12.2); MONOCYTES # (AUTO) 0.6 10^3/uL (0.0-1.0); MONOCYTES % (AUTO) 8 % (0-12); NEUTROPHILS # (AUTO) 3.9 10^3/uL (1.8-7.8); NEUTROPHILS % (AUTO) 52 % (42-75); PLATELET COUNT 242 10^3/uL (130-400); WHITE BLOOD COUNT 7.5 10^3/uL (4.3-11.0)
[2021-09-16 05:22] LABS: ALBUMIN 2.7 GM/DL (3.2-4.5); POTASSIUM 4.2 MMOL/L (3.6-5.0)
[2021-09-16 05:23] LABS: CALCIUM 9.3 MG/DL (8.5-10.1)
[2021-09-16 05:25] LABS: TOTAL PROTEIN 5.9 GM/DL (6.4-8.2)
[2021-09-16 05:26] LABS: BILIRUBIN,TOTAL 0.5 MG/DL (0.1-1.0)
[2021-09-16] MEDS: inSUlin ASPART (NovoLOG) 1 UNIT/0.01 ML (CHARGE PER UNIT) SC SCH ×4 (05:27→21:15)
[2021-09-16 05:28] LABS: CREATININE SERUM 0.63 MG/DL (0.60-1.30)
[2021-09-16] MEDS: LACTULOSE SYRUP 10GM/15ML (ENULOSE) 30ML UDC PO SCH ×2 (08:54→21:15)
[2021-09-16] MEDS: polyethylene glycoL POWDER 17 GM (MIRALAX) PACK PO SCH ×2 (08:54→21:15)
[2021-09-16] MEDS: SENNA W/DOCUSATE (SENOKOT S) TABLET PO SCH ×2 (08:54→21:15)
[2021-09-16] MEDS: BISACODYL 10 MG SUPP (DULCOLAX) PR SCH (08:55)
[2021-09-16] MEDS: DOCUSATE SODIUM 100 MG (COLACE) CAP PO SCH ×2 (08:55→21:15)
--- NOTE | 2021-09-16 09:21 | Physical Therapy Daily Note ---
PT Daily Note-Current Subjective Pt in bed upon arrival asleep. PT wakes her and pt agrees to PT. Reports B hips are hurting today. Pain Numeric Pain Scale: 8 Location: Right, Left Location Body Site: Hip Mental Status Patient Orientation: Person, Time, Situation Attachments: Mckinley Catheter, Other-See Comments (mask while out of room) Transfers SCALE: Activities may be completed with or without assistive devices. 4-Xoystndpyy-leogwmk completes the activity by him/herself with no assistance from a helper. 5-Set-up or Clean-up Assistance-helper sets up or cleans up; patient completes activity. [place] assists only prior to or following the activity. 4-Supervision or Touching Assistance-helper provides verbal cues and/or touching/steadying and/or contact guard assistance as patient completes activity. Assistance may be provided throughout the activity or intermittently. 3-Partial/Moderate Assistance-helper does LESS THAN HALF the effort. [place] lifts, holds or supports trunk or limbs, but provides less than half the effort. 2-Substantial/Maximal Assistance-helper does MORE THAN HALF the effort. [place] lifts or holds trunk or limbs and provides more than half the effort. 2-Csnxkhndj-rnotgg does ALL the effort. Patient does none of the effort to complete the activity. Or, the assistance of 2 or more helpers is required for the patient to complete the activity. If activity was not attempted, code reason: 7-Patient Refused. 9-Not Applicable-not attempted and the patient did not perform the activity before the current illness, exacerbation or injury. 10-Not Attempted due to Environmental Limitations-(lack of equipment, weather restraints, etc.). 88-Not Attempted due to Medical Conditions or Safety Concerns. Sit to Stand (QC): 4 Chair/Rdf-wd-Whkmi Xfer(QC): 4 Gait Training Does the Patient Walk?: Yes Distance: 125' Walk 10 feet (QC): 4 Walk 50 ft with 2 Turns(QC): 4 Gait Assistive Device: FWW Ambulates very slowing d/t pain in B hips Exercises Seated Therapy Exercises: Ankle pumps, Long arc quads Seated Reps: 15 Standing: Sit to Stand Standing Reps: 3 Treatments Pt in bed upon arrival and agrees to PT. Pt TF to sitting at EOB. Required CGA for lying to sitting TF. Pt then performs seated exs and then sit to stand TF and requires CGA/Adriana. Pt then amb 125' out in the whiting and back. Pt requests to go to recliner and TF back to recliner. Pt calls for breakfast w/ call light nearby and all needs met. PT exits the room nurse present. Assessment Current Status: Good Progress Pt requires skilled verbal cues about hand placement and foot placement during sit to stand TF. Pt continues to amb very slowly. PT [facility] Goals [facility] Goals PT Telecine Operator Goals Time Frame: Sep 26, 2021 Roll Left & Right (QC): 5 Sit to Lying (QC): 5 Lying-Sitting on Side/Bed(QC): 5 Sit to Stand (QC): 5 Chair/Dks-fc-Knqem Xfer(QC): 5 Toilet Transfer (QC): 5 Walk 10 feet (QC): 5 Walk 50ft with 2 Turns (QC): 5 Walk 150 ft (QC): 5 PT Plan Problem List Problem List: Activity Tolerance, Functional Strength, Safety Treatment/Plan Treatment Plan: Continue Plan of Care Treatment Plan: Bed Mobility, Education, Functional Activity Cleve, Functional Strength, Gait, Safety, Therapeutic Exercise, Transfers Treatment Duration: Sep 26, 2021 Frequency: 11 times per week Estimated Hrs Per Day: .5 hour per day Patient and/or Family Agrees t: Yes Safety Risks/Education Patient Education: Gait Training, Transfer Techniques Teaching Recipient: Patient Teaching Methods: Discussion Response to Teaching: Return Demonstration Time/GCodes Time In: 823 Time Out: 843 Total Billed Treatment Time: 20 Total Billed Treatment 1, GT 15', EX 5' DANISH DOLAN PTA Sep 16, 2021 09:21
--- NOTE | 2021-09-16 09:59 | Occupational Ther Daily Note ---
OT Current Status-Daily Note Subjective Pt alert, sitting a bedside commode when OT entered. Pt agreed to therapy. No c/o pain. Pt stated "I thought I needed to use the restroom, but after I sat down apparently not." Mental Status/Objective Patient Orientation: Person, Place, Time, Situation Attachments: Mckinley Catheter, IV ADL-Treatment Therapy Code Descriptions/Definitions Functional [place] Measure: 0=Not Assessed/NA 4=Minimal Assistance 1=Total Assistance 5=Supervision or Setup 2=Maximal Assistance 6=Modified [place] 3=Moderate Assistance 7=Complete IndependenceSCALE: Activities may be completed with or without assistive devices. 3-Ovbfcqepef-qidcexo completes the activity by him/herself with no assistance from a helper. 5-Set-up or Clean-up Assistance-helper sets up or cleans up; patient completes activity. [place] assists only prior to or following the activity. 4-Supervision or Touching Assistance-helper provides verbal cues and/or touching/steadying and/or contact guard assistance as patient completes activity. Assistance may be provided throughout the activity or intermittently. 3-Partial/Moderate Assistance-helper does LESS THAN HALF the effort. [place] lifts, holds or supports trunk or limbs, but provides less than half the effort. 2-Substantial/Maximal Assistance-helper does MORE THAN HALF the effort. [place] lifts or holds trunk or limbs and provides more than half the effort. 8-Lxnntmxiv-pdmqfi does ALL the effort. Patient does none of the effort to complete the activity. Or, the assistance of 2 or more helpers is required for the patient to complete the activity. If activity was not attempted, code reason: 7-Patient Refused. 9-Not Applicable-not attempted and the patient did not perform the activity before the current illness, exacerbation or injury. 10-Not Attempted due to Environmental Limitations-(lack of equipment, weather restraints, etc.). 88-Not Attempted due to Medical Conditions or Safety Concerns. Other Treatment Pt sit-stand from commode to FWW with CGA. Pt SPT from commode to EOB using FWW with CGA. Pt transferred from EOB-supine. Pt was able to shift weight independently using bed rails. Skilled instruction required of BUE red theraband exercises. Pt completed x2 sets of 10 reps of red BUE red theraband exercises in all planes to increase BUE strength for improved activity tolerance. Pt required demonstration of each exercise, pt was able to verbalize understanding and return demonstration.Pt tolerated exercises well and required resting break in between set. Education OT Patient Education: Energy conservation, Exercise program, Home exercise program, Transfer techniques Teaching Recipient: Patient Teaching Methods: Demonstration, Discussion Response to Teaching: Verbalize Understanding, Return Demonstration OT Director Of Medical Staff Services Goals Director Of Medical Staff Services Goals Time Frame: Sep 26, 2021 Oral Hygiene (QC): 4 Toileting Hygiene (QC): 4 Lower Body Dressing (QC): 4 On/Off Footwear (QC): 4 1=Demonstrate adherence to instructed precautions during ADL tasks. 2=Patient will verbalize/demonstrate understanding of assistive devices/modifications for ADL. 3=Patient will improve strength/tolerance for activity to enable patient to perform ADL's. OT Education/Plan Problem List/Assessment Assessment: Decreased Activ Tolerance, Decreased UE Strength, Impaired Self- Care Skills Discharge Recommendations Plan/Recommendations: Continue POC Treatment Plan/Plan of Care Patient would benefit from OT for education, treatment and training to promote independence in ADL's, mobility, safety and/or upper extremity function for ADL's. Plan of Care: ADL Retraining, Functional Mobility, UE Funct Exercise/Act Treatment Duration: Sep 26, 2021 Frequency: 5 times per week Estimated Hrs Per Day: .25 hour per day Agreement: Yes Rehab Potential: Fair Time/GCodes Start Time: 09:35 Stop Time: 09:50 Total Time Billed (hr/min): 15 Billed Treatment Time 1 visit - EX 1 (15 mins) SILVERIO FRANCISCO Sep 16, 2021 09:59
--- NOTE | 2021-09-16 13:37 | Physical Therapy Daily Note ---
PT Daily Note-Current Subjective Pt in recliner upon arrival and agrees to PT. Pt voices that she would like to stand and walk some because her butt is hurting. Pain Numeric Pain Scale: 9 Location: Right, Left Location Body Site: Hip Mental Status Patient Orientation: Person, Time, Situation Attachments: Mckinley Catheter, Other-See Comments (mask while out of room) Transfers SCALE: Activities may be completed with or without assistive devices. 4-Vsnmxyzkqz-gyptrsu completes the activity by him/herself with no assistance from a helper. 5-Set-up or Clean-up Assistance-helper sets up or cleans up; patient completes activity. [place] assists only prior to or following the activity. 4-Supervision or Touching Assistance-helper provides verbal cues and/or touching/steadying and/or contact guard assistance as patient completes activity. Assistance may be provided throughout the activity or intermittently. 3-Partial/Moderate Assistance-helper does LESS THAN HALF the effort. [place] lifts, holds or supports trunk or limbs, but provides less than half the effort. 2-Substantial/Maximal Assistance-helper does MORE THAN HALF the effort. [place] lifts or holds trunk or limbs and provides more than half the effort. 2-Uagvsidvj-znijow does ALL the effort. Patient does none of the effort to complete the activity. Or, the assistance of 2 or more helpers is required for the patient to complete the activity. If activity was not attempted, code reason: 7-Patient Refused. 9-Not Applicable-not attempted and the patient did not perform the activity before the current illness, exacerbation or injury. 10-Not Attempted due to Environmental Limitations-(lack of equipment, weather restraints, etc.). 88-Not Attempted due to Medical Conditions or Safety Concerns. Sit to Lying (QC): 4 Sit to Stand (QC): 4 CGA for safety Gait Training Does the Patient Walk?: Yes Distance: 100' Walk 10 feet (QC): 4 Walk 50 ft with 2 Turns(QC): 4 Gait Assistive Device: FWW Ambulates very slowly and requires verbal cues when turning. Exercises Supine Ex: Scooting Supine Reps: 2 Treatments Pt in recliner upon PT arrival and voices she wants to ambulate d/t her bottom hurting. Pt TF from recliner to amb w/ FWW and requires CGA. Pt amb 100' then TF back to bed and performs scooting activity. Requires skilled verbal cues about hand placement and reiterated not to cross RLE across midline. Pt in bed all needs met call light in hand and notified nurse that pt desired muscle relaxer d/t muscle cramping. Assessment Current Status: Good Progress Pt continues to amb w/ decreased step and stride length. Informed nurse that pt desired muscle relaxant d/t muscle cramping. Pt required skilled verbal cues a bout hand placement while scooting in bed. PT Stacker Goals Stacker Goals PT Stacker Goals Time Frame: Sep 26, 2021 Roll Left & Right (QC): 5 Sit to Lying (QC): 5 Lying-Sitting on Side/Bed(QC): 5 Sit to Stand (QC): 5 Chair/Bfb-at-Mpkfs Xfer(QC): 5 Toilet Transfer (QC): 5 Walk 10 feet (QC): 5 Walk 50ft with 2 Turns (QC): 5 Walk 150 ft (QC): 5 PT Plan Problem List Problem List: Activity Tolerance, Functional Strength, Safety Treatment/Plan Treatment Plan: Continue Plan of Care Treatment Plan: Bed Mobility, Education, Functional Activity [place], Functional Strength, Gait, Safety, Therapeutic Exercise, Transfers Treatment Duration: Sep 26, 2021 Frequency: 11 times per week Estimated Hrs Per Day: .5 hour per day Patient and/or Family Agrees t: Yes Safety Risks/Education Patient Education: Gait Training, Transfer Techniques Teaching Recipient: Patient Teaching Methods: Discussion Response to Teaching: Return Demonstration Time/GCodes Time In: 1305 Time Out: 1320 Total Billed Treatment Time: 15 Total Billed Treatment 1, FA 15' DANISH DOLAN MAIL HANDLER EQUIPMENT OPERATOR Sep 16, 2021 13:37
--- NOTE | 2021-09-16 14:38 | Progress Note - Hospitalist ---
DOWNSAGUSTOSTEWART 09/16/21 1438: Subjective HPI/CC On Admission Date Seen by Provider: Sep 16, 2021 Time Seen by Provider: 09:00 Chief complaint: Acute kidney injury with hypotension History of present illness: This is a 66-year-old white female clinic patient of [facility] who just returned from [facility] yesterday after a hip replacement uncomplicated who began feeling weak and dizzy and in the ER was assessed to have acute kidney injury with hypotension. Upon my assessment she was lethargic and pale and ashen with hypotension so I asked for central line to be placed in ICU admission and to evaluate any source of sepsis. Patient appears to have hypovolemic status with acute kidney injury but will monitor patient closely in the ICU. Subjective/Events-last exam Today, Marce was sitting in her recliner eating breakfast She states her pain persists across her posterior hips, bilaterally Had a bowel movement this morning Appetite continues to improve Marce states that she has been continuing PT/OT recommendations, She states she would like to remain here for one more day prior to discharge Focused Exam Sepsis Stage: Ruled Out Respiratory: Chest Non Tender, Lungs Clear, Normal Breath Sounds, No Accessory Muscle Use, No Respiratory Distress Cardiovascular: Regular Rate, Rhythm, No Edema, No Gallop, No JVD, No Murmur Skin: normal color, warm/dry Objective Exam Vital Signs Vital Signs Date Time Temp Pulse Resp B/P (MAP) Pulse Ox O2 Delivery O2 Flow Rate FiO2 09/16/21 11:25 36.7 72 20 119/62 92 Nasal Cannula 2.00 09/12/21 16:39 91 Capillary Refill : Less Than 3 Seconds General Appearance: No Apparent Distress, WD/WN HEENT: PERRL/EOMI Respiratory: Chest Non Tender, Lungs Clear, Normal Breath Sounds, No Accessory Muscle Use, No Respiratory Distress Cardiovascular: Regular Rate, Rhythm, No Edema, No Gallop Gastrointestinal: Normal Bowel Sounds Extremity: Normal Capillary Refill Neurologic/Psychiatric: Alert, Oriented x3, No Motor/Sensory Deficits, Normal Mood/Affect, turkey picker II-XII Norm as Tested Results/Procedures Lab Laboratory Tests 09/16/21 05:00 Patient resulted labs reviewed. Laboratory Tests 09/15/21 15:41: Glucometer 255H 09/15/21 20:34: Glucometer 222H 09/16/21 05:00: White Blood Count 7.5, Red Blood Count 3.29L, Hemoglobin 9.6L, Hematocrit 30L, Mean Corpuscular Volume 90, Mean Corpuscular Hemoglobin 29, Mean Corpuscular Hemoglobin Concent 33, Red Cell Distribution Width 13.7, Platelet Count 242, Mean Platelet Volume 11.5, Immature Granulocyte % (Auto) 1, Neutrophils (%) (Auto) 52, Lymphocytes (%) (Auto) 35, Monocytes (%) (Auto) 8, Eosinophils (%) (Auto) 4, Basophils (%) (Auto) 0, Neutrophils # (Auto) 3.9, Lymphocytes # (Auto) 2.6, Monocytes # (Auto) 0.6, Eosinophils # (Auto) 0.3, Basophils # (Auto) 0.0, Immature Granulocyte # (Auto) 0.1, Sodium Level 138, Potassium Level 4.2, Chloride Level 98, Carbon Dioxide Level 29, Anion Gap 11, Blood Urea Nitrogen 9, Creatinine 0.63, Estimat Glomerular Filtration Rate 95, BUN/Creatinine Ratio 14, Glucose Level 173H, Calcium Level 9.3, Corrected Calcium 10.3H, Total Bilirubin 0.5, Aspartate Amino Transf (AST/SGOT) 38H, Alanine Aminotransferase (ALT/SGPT) 54, Alkaline Phosphatase 75, Total Protein 5.9L, Albumin 2.7L 09/16/21 11:34: Glucometer 292H Microbiology 09/13/21 Blood Culture - Preliminary, Resulted No growth 09/12/21 MRSA Screen - Final, Complete MRSA not isolated 09/12/21 Urine Culture - Final, Complete NO GROWTH Imaging: Reviewed Imaging Films Meds Item Value Date Time Corrected Calcium 10.3 MG/DL H 09/16/21 0500 Insulin Aspart INSULIN SLIDING SCALE ... 09/14/21 1100 (NovoLOG (CHARGE ACHS/SC 09/16/21 1148 PER UNIT)) Senna 2 ea 09/14/21 1000 (Senokot S BID/PO 09/16/21 0854 Tablet) Lactulose 10 gm 09/14/21 1000 (Enulose Oral BID/PO 09/16/21 0854 Solution) Bisacodyl 10 mg 09/14/21 1000 (Dulcolax DAILY/MN 09/16/21 0855 Suppository) Ondansetron HCl 4 mg 09/13/21 1600 (Zofran Q4H PRN/IVP 09/15/21 2139 Injection (Sdv)) Oxycodone HCl 5 mg 09/12/21 1630 (Oxyir Tablet) Q4H PRN/PO 09/16/21 0504 Polyethylene 17 gm 09/12/21 1615 Glycol BID/PO 09/16/21 0854 (Miralax 17 Gm Packet) Docusate Sodium 100 mg 09/12/21 1614 (Colace Capsule) BID/PO 09/16/21 0855 Heparin Sodium 5,000 units 09/12/21 1600 (Porcine) Q8H/SC 09/16/21 0901 (HEParin INJECTION) Lactated Ringer's 1,000 ml @ 0 mls/hr 09/12/21 1200 Assessment/Plan Assessment and Plan Assess & Plan/Chief Complaint 1. Acute kidney injury Monitor creatinine closely 2. Hypovolemia 3. Hypotension 4. Elevated lactic acid from volume depletion Fluids discontinued Currently HYPERtensive Closely monitor 5. Abnormal Chest X-Ray Repeat Chest X-ray on 09/12/21 demonstrated infiltrate of left lung base Repeat Chest X-ray on 09/14/21 did not show any evidence of consolidated infiltrate Procalcitonin of 0.1, not concerning for bacterial infection 6. Recent hip replacement Continue PT/OT Goal of getting up and walking every hour from 6am to 10pm 7. History of HTN Blood pressure continues to improve s/p HYPOtension (09/14/21) Monitor closely BLANK GARVEY DO 09/17/21 0543: Subjective Subjective/Events-last exam Patient doing well Minimal motivation High risk for declining at home Review of Systems General: Fatigue, Malaise Musculoskeletal: back pain, leg pain Objective Exam General Appearance: No Apparent Distress, WD/WN, Chronically ill Respiratory: Lungs Clear, Normal Breath Sounds Cardiovascular: Regular Rate, Rhythm Neurologic/Psychiatric: Alert, Oriented x3, No Motor/Sensory Deficits, Normal Mood/Affect Assessment/Plan Assessment and Plan Assess & Plan/Chief Complaint Supportive care PT and OT Ambulate Discharge tomorrow Supervisory-Addendum Brief Verification & Attestation Participated in pt care: history, MDM, physical Personally performed: exam, history, MDM, supervision of care Care discussed with: Medical Student Procedures: n/a Results interpretation: Verified all documentation Verification and Attestation of Medical Student E/M Service A medical student performed and documented this service in my presence. I reviewed and verified all information documented by the medical student and made modifications to such information, when appropriate. I personally performed the physical exam and medical decision making. Blank Garvey, Sep 17, 2021,05:42 STEWART SAVAGE Sep 16, 2021 14:38 BLANK GARVEY DO Sep 17, 2021 05:43
[2021-09-16] MEDS ORDERED: PANTOPRAZOLE 40 MG (PROTONIX) TAB PO ONE (22:04)
[2021-09-16] MEDS: PANTOPRAZOLE 40 MG (PROTONIX) TAB PO SCH (22:06)
[2021-09-17] MEDS: inSUlin ASPART (NovoLOG) 1 UNIT/0.01 ML (CHARGE PER UNIT) SC SCH ×2 (05:25→11:22)
[2021-09-17 05:33] LABS: BASOPHILS % (AUTO) 1 % (0-10); EOSINOPHILS # (AUTO) 0.3 10^3/uL (0.0-0.3); EOSINOPHILS % (AUTO) 3 % (0-10); HEMATOCRIT 30 % (35-52); HEMOGLOBIN 9.8 g/dL (11.5-16.0); LYMPHOCYTES # (AUTO) 2.8 10^3/uL (1.0-4.0); LYMPHOCYTES % (AUTO) 34 % (12-44); MEAN CORPUSCULAR HEMOGLOBIN 29 pg (25-34); MEAN CORPUSCULAR HGB CONC 32 g/dL (32-36); MEAN CORPUSCULAR VOLUME 90 fL (80-99); MEAN PLATELET VOLUME 11.1 fL (9.0-12.2); MONOCYTES # (AUTO) 0.7 10^3/uL (0.0-1.0); MONOCYTES % (AUTO) 8 % (0-12); NEUTROPHILS # (AUTO) 4.4 10^3/uL (1.8-7.8); NEUTROPHILS % (AUTO) 54 % (42-75); PLATELET COUNT 260 10^3/uL (130-400); WHITE BLOOD COUNT 8.3 10^3/uL (4.3-11.0)
[2021-09-17 05:48] LABS: ALBUMIN 2.8 GM/DL (3.2-4.5)
[2021-09-17 05:49] LABS: POTASSIUM 4.4 MMOL/L (3.6-5.0)
[2021-09-17 05:50] LABS: CALCIUM 9.1 MG/DL (8.5-10.1)
[2021-09-17 05:53] LABS: BILIRUBIN,TOTAL 0.4 MG/DL (0.1-1.0)
[2021-09-17 05:55] LABS: CREATININE SERUM 0.64 MG/DL (0.60-1.30)
[2021-09-17] MEDS: DOCUSATE SODIUM 100 MG (COLACE) CAP PO SCH (08:33)
[2021-09-17] MEDS: PANTOPRAZOLE 40 MG (PROTONIX) TAB PO SCH (08:33)
[2021-09-17] MEDS: polyethylene glycoL POWDER 17 GM (MIRALAX) PACK PO SCH (08:35)
[2021-09-17] MEDS: BISACODYL 10 MG SUPP (DULCOLAX) PR SCH (08:36)
[2021-09-17] MEDS: LACTULOSE SYRUP 10GM/15ML (ENULOSE) 30ML UDC PO SCH (08:36)
[2021-09-17] MEDS: SENNA W/DOCUSATE (SENOKOT S) TABLET PO SCH (08:36)
--- NOTE | 2021-09-17 11:18 | Occupational Ther Daily Note ---
OT Current Status-Daily Note Subjective Pt alert, laying in bed with HOB raised when OT entered. Pt requested to use bedside commode. No c/o pain reported. Mental Status/Objective Patient Orientation: Person, Place, Time, Situation ADL-Treatment Pt transferred to EOB with supervision. While at EOB, noticed catheter was not on sticker. Nursing notified and came to look at pt. Nursing reported it's okay but needs to be taken out soon. Pt sit-stand from EOB-FWW with CGA. Pt transferred to bedside commode with CGA. Physician entered room, gave orders to take out catheter. Pt reported not having to go the bathroom. Pt sit-stand from commode using FWW with CGA and transferred to EOB. After therapy, pt left in room with nursing. All needs met and call light in reach. Therapy Code Descriptions/Definitions Functional [place] Measure: 0=Not Assessed/NA 4=Minimal Assistance 1=Total Assistance 5=Supervision or Setup 2=Maximal Assistance 6=Modified [place] 3=Moderate Assistance 7=Complete IndependenceSCALE: Activities may be completed with or without assistive devices. 8-Ftlxsipyys-fcbrxze completes the activity by him/herself with no assistance from a helper. 5-Set-up or Clean-up Assistance-helper sets up or cleans up; patient completes activity. [place] assists only prior to or following the activity. 4-Supervision or Touching Assistance-helper provides verbal cues and/or touching/steadying and/or contact guard assistance as patient completes act ivity. Assistance may be provided throughout the activity or intermittently. 3-Partial/Moderate Assistance-helper does LESS THAN HALF the effort. [place] lifts, holds or supports trunk or limbs, but provides less than half the effort. 2-Substantial/Maximal Assistance-helper does MORE THAN HALF the effort. [place] lifts or holds trunk or limbs and provides more than half the effort. 4-Rhazxewnu-cxngzx does ALL the effort. Patient does none of the effort to complete the activity. Or, the assistance of 2 or more helpers is required for the patient to complete the activity. If activity was not attempted, code reason: 7-Patient Refused. 9-Not Applicable-not attempted and the patient did not perform the activity before the current illness, exacerbation or injury. 10-Not Attempted due to Environmental Limitations-(lack of equipment, weather restraints, etc.). 88-Not Attempted due to Medical Conditions or Safety Concerns. Education OT Patient Education: Correct positioning, Safety issues, Transfer techniques Teaching Recipient: Patient Teaching Methods: Demonstration, Discussion Response to Teaching: Verbalize Understanding, Return Demonstration OT Penitentiary Goals Penitentiary Goals Time Frame: Sep 26, 2021 Oral Hygiene (QC): 4 Toileting Hygiene (QC): 4 Lower Body Dressing (QC): 4 On/Off Footwear (QC): 4 1=Demonstrate adherence to instructed precautions during ADL tasks. 2=Patient will verbalize/demonstrate understanding of assistive devices/modifications for ADL. 3=Patient will improve strength/tolerance for activity to enable patient to perform ADL's. OT Education/Plan Problem List/Assessment Assessment: Decreased Activ Tolerance, Impaired Self-Care Skills Discharge Recommendations Plan/Recommendations: Continue POC Treatment Plan/Plan of Care Patient would benefit from OT for education, treatment and training to promote independence in ADL's, mobility, safety and/or upper extremity function for ADL's. Plan of Care: ADL Retraining, Functional Mobility, UE Funct Exercise/Act Treatment Duration: Sep 26, 2021 Frequency: 5 times per week Estimated Hrs Per Day: .25 hour per day Agreement: Yes Rehab Potential: Fair Time/GCodes Start Time: 10:50 Stop Time: 11:02 Total Time Billed (hr/min): 12 Billed Treatment Time 1 visit - ADL 1 (12 mins) SILVERIO FRANCISCO Sep 17, 2021 11:18
[2021-09-17] MEDS ORDERED: OXYC5TAB PO (11:25)
--- NOTE | 2021-09-17 11:27 | Discharge Summary ---
Discharge Summary Hospital Course Was the Problem List Reviewed?: Yes Problems/Dx: (1) Hypotension due to hypovolemia (2) JULIANN (acute kidney injury) Status: Acute (3) Hip pain, left Status: Acute (4) Status post right hip replacement Status: Acute Hospital Course Date of Admission: Sep 12, 2021 at 13:21 Admission Diagnosis : Family Physician/Provider: Kj Lawler MD Date of Discharge: 09/17/21 Discharge Diagnosis: Hypovolemia, acute kidney injury, left hip pain, Hospital Course: Chief complaint: Acute kidney injury with hypotension Marce Oquendo is a 66 yo female who presented from [facility] on 09[facility]12[facility]21 s/p hip replacement for evaluation and management for new-onset weakness and dizziness. In the ER, she was assessed to have acute kidney injury and hypotension. As well, she appeared ashen, pale, and lethargic. A central line was placed for fluid resuscitation and she was admitted to the ICU to evaluate for any source of sepsis. On 09/13/21, Marce's status appeared to be improving, no source of sepsis was found, and her coloring returned to near normal; she was transferred to the medical/surgical unit on the fourth floor. She had repeat phbqo-w-kesu which did not indicate any infiltrate or consolidation. On the 4th floor, Marce received daily PT/OT to improve and maintain ability to ambulate with a walker. During this time, Marce's appetite continued to improve, but bilateral hip pain persisted; this was successfully managed with medication and PT. Today, 09/17/2021, Marce stated she felt ready to go home; she appears significantly more energetic, alert, and conversational. She is to return home with her . custodial services manager has coordinated with [facility] to continue home healthcare. Labs and Pending Lab Test: Laboratory Tests 09/16/21 11:34: Glucometer 292H 09/16/21 16:01: Glucometer 171H 09/16/21 21:02: Glucometer 203H 09/17/21 05:24: Glucometer 157H 09/17/21 05:26: White Blood Count 8.3, Red Blood Count 3.36L, Hemoglobin 9.8L, Hematocrit 30L, Mean Corpuscular Volume 90, Mean Corpuscular Hemoglobin 29, Mean Corpuscular Hemoglobin Concent 32, Red Cell Distribution Width 13.7, Platelet Count 260, Mean Platelet Volume 11.1, Immature Granulocyte % (Auto) 1, Neutrophils (%) (Auto) 54, Lymphocytes (%) (Auto) 34, Monocytes (%) (Auto) 8, Eosinophils (%) (Auto) 3, Basophils (%) (Auto) 1, Neutrophils # (Auto) 4.4, Lymphocytes # (Auto) 2.8, Monocytes # (Auto) 0.7, Eosinophils # (Auto) 0.3, Basophils # (Auto) 0.0, Immature Granulocyte # (Auto) 0.1, Sodium Level 136, Potassium Level 4.4, Chloride Level 98, Carbon Dioxide Level 27, Anion Gap 11, Blood Urea Nitrogen 11, Creatinine 0.64, Estimat Glomerular Filtration Rate 93, BUN/Creatinine Ratio 17, Glucose Level 168H, Calcium Level 9.1, Corrected Calcium 10.1, Total Bilirubin 0.4, Aspartate Amino Transf (AST/SGOT) 38H, Alanine Aminotransferase (ALT/SGPT) 45, Alkaline Phosphatase 77, Total Protein 6.0L, Albumin 2.8L 09/17/21 10:13: Glucometer 238H Microbiology 09/13/21 Blood Culture - Preliminary, Resulted No growth 09/12/21 MRSA Screen - Final, Complete MRSA not isolated 09/12/21 Urine Culture - Final, Complete NO GROWTH Home Meds Active Oxycodone HCl 5 Mg Tablet 5-10 Mg PO Q4H PRN Reported Imodium A-D (Loperamide HCl) 2 Mg Tablet 2 Mg PO DAILY PRN Neurontin (Gabapentin) 300 Mg Capsule 300 Mg PO HS Metformin HCl ER (Metformin HCl) 500 Mg Tab.er.24h 500 Mg PO BID Acetaminophen Extra Strength (Acetaminophen) 500 Mg Tablet 1,000 Mg PO BID Tramadol HCl 50 Mg Tablet 100 Mg PO Q6H PRN TAKES 2 50MG TABS Cyclobenzaprine HCl 10 Mg Tablet 10 Mg PO Q8H PRN Zyrtec (Cetirizine HCl) 10 Mg Tablet 10 Mg PO DAILY Citalopram HBr (Citalopram Hydrobromide) 40 Mg Tablet 40 Mg PO DAILY Colestid (Colestipol HCl) 1 Gm Tab 1 Gm PO BID Glyburide 2.5 Mg Tablet 2.5 Mg PO DAILY Lisinopril 20 Mg Tablet 20 Mg PO DAILY Myrbetriq (Mirabegron) 50 Mg Tab.er.24h 50 Mg PO DAILY Atorvastatin Calcium 10 Mg Tablet 10 Mg PO DAILY Januvia (Sitagliptin Phosphate) 100 Mg Tablet 100 Mg PO DAILY Omeprazole 40 Mg Capsule.dr 40 Mg PO DAILY Assessment/Pt Instructions [facility] in 1 week Discharge Planning: <30 minutes discharge planning Discharge Instructions Discharge Diet: No Restrictions Discharge Physical Examination Vital Signs Vital Signs Date Time Temp Pulse Resp B/P (MAP) Pulse Ox O2 Delivery O2 Flow Rate FiO2 09/17/21 09:00 95 Nasal Cannula 2.00 09/17/21 07:23 36.7 74 18 131/79 09/12/21 16:39 91 General Appearance: No Apparent Distress, WD/WN, Chronically ill Neurologic/Psychiatric: Alert, Oriented x3, No Motor/Sensory Deficits, Normal Mood/Affect Allergies: Coded Allergies: No Known Drug Allergies (Unverified , 12/02/20) Discharge Summary Date of Admission Sep 12, 2021 at 13:21 Date of Discharge Discharge Date: Sep 17, 2021 Admission Diagnosis Assessment: Hypovolemia Hypotension Acute kidney injury Elevated lactic acid from volume depletion Recent hip replacement just discharged yesterday History of hypertension Plan: ICU IV fluids Central line Discharge Diagnosis Supportive care PT and OT Ambulate Discharge tomorrow DAGMAR GARVEY DO Sep 17, 2021 11:27
--- NOTE | 2021-09-17 11:27 | D/C HH Face to Face Order ---
D/C Face to Face Orders Reconcile Patient Problems Problems Reviewed?: Yes Instructions for Patient Sabine Patient Instructions/FollowUp: PCP 1 month Physician to follow Patient: [facility] Discharge Diet for Home: ADA Diet Patient Problems: Debility s/p JULIANN Patient Data-Allergies,Ht & Wt Patient Allergies: Coded Allergies: No Known Drug Allergies (Unverified , 12/02/20) Home Health Need/Face to Face Date of Face to Face: Sep 17, 2021 Clinical Findings: Generalized weakness and fatigue, Instability, Muscle weakness, Unsteady gait I have seen Pt [id number]: Yes Discharged To: Home Diagnosis/Conditions: Debility Patient is Homebound due to: Jesús fall risk due to instabilty, Muscle weakness, Pain w/ambulation Homebound Status Due to the above stated illness, injury or surgical procedure (medical condition or diagnosis) and associated clinical findings, the patient is homebound because of his/her inability to leave home except with aid of a supportive device and/or person AND leaving the home requires a considerable and taxing effort or is medically contraindicated. Pt req the following assistanc: Walker Home Health Nursing Orders Home Health Services Order: Nursing Services, Shrimp Header-Evaluate & Treat, Physical Therapy-Evaluate & Treat Home Health Infusion Therapy Line Start Date: Sep 12, 2021 Certify Stmt I certify that this patient is under my care and that I, a nurse practitioner or a physician; a pediatric assistant working with me, had a face to face encounter that - meets the physician face to face encounter requirements with this patient as dated. DAGMAR GARVEY DO Sep 17, 2021 11:27
[2021-09-17 13:15] VITALS: BP 147/83
--- NOTE | 2021-09-17 14:10 | Progress Note ---
JANETTESTEWART 09/17/21 1410: Progress Note Hospital Course Date of Admission: Sep 12, 2021 at 13:21 Date of Discharge: 09/17/21 Chief complaint: Acute kidney injury with hypotension Marce Oquendo is a 66 yo female who presented from [facility] on 09/12/21 s/p hip replacement for evaluation and management for new-onset weakness and dizziness. In the ER, she was assessed to have acute kidney injury and hypotension. As well, she appeared ashen, pale, and lethargic. A central line was placed for fluid resuscitation and she was admitted to the ICU to evaluate for any source of sepsis. On 09/13/21, Marce's status appeared to be improving, no source of sepsis was found, and her coloring returned to near normal; she was transferred to the medical/surgical unit on the fourth floor. She had repeat [id number] which did not indicate any infiltrate or consolidation. On the 4th floor, Marce received daily PT/OT to improve and maintain ability to ambulate with a walker. During this time, Marce's appetite continued to improve, but bilateral hip pain persisted; this was successfully managed with medication and PT. Today, 09/17/2021, Marce stated she felt ready to go home; she appears significantly more energetic, alert, and conversational. 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 Labs and Pending Lab Test: Laboratory Tests 09/16/21 11:34: Glucometer 292H 09/16/21 16:01: Glucometer 171H 09/16/21 21:02: Glucometer 203H 09/17/21 05:24: Glucometer 157H 09/17/21 05:26: White Blood Count 8.3, Red Blood Count 3.36L, Hemoglobin 9.8L, Hematocrit 30L, Mean Corpuscular Volume 90, Mean Corpuscular Hemoglobin 29, Mean Corpuscular Hemoglobin Concent 32, Red Cell Distribution Width 13.7, Platelet Count 260, Mean Platelet Volume 11.1, Immature Granulocyte % (Auto) 1, Neutrophils (%) (Auto) 54, Lymphocytes (%) (Auto) 34, Monocytes (%) (Auto) 8, Eosinophils (%) (Auto) 3, Basophils (%) (Auto) 1, Neutrophils # (Auto) 4.4, Lymphocytes # (Auto) 2.8, Monocytes # (Auto) 0.7, Eosinophils # (Auto) 0.3, Basophils # (Auto) 0.0, Immature Granulocyte # (Auto) 0.1, Sodium Level 136, Potassium Level 4.4, Chloride Level 98, Carbon Dioxide Level 27, Anion Gap 11, Blood Urea Nitrogen 1 1, Creatinine 0.64, Estimat Glomerular Filtration Rate 93, BUN/Creatinine Ratio 17, Glucose Level 168H, Calcium Level 9.1, Corrected Calcium 10.1, Total Bilirubin 0.4, Aspartate Amino Transf (AST/SGOT) 38H, Alanine Aminotransferase (ALT/SGPT) 45, Alkaline Phosphatase 77, Total Protein 6.0L, Albumin 2.8L 09/17/21 10:13: Glucometer 238H Microbiology 09/13/21 Blood Culture - Preliminary, Resulted No growth 09/12/21 MRSA Screen - Final, Complete MRSA not isolated 09/12/21 Urine Culture - Final, Complete NO GROWTH BLANK GARVEY DO 09/17/212020: Supervisory-Addendum Brief Verification & Attestation Participated in pt care: history, MDM, physical Personally performed: exam, history, MDM, supervision of care Care discussed with: Medical Student Procedures: n/a Results interpretation: Verified all documentation Verification and Attestation of Medical Student E/M Service A medical student performed and documented this service in my presence. I reviewed and verified all information documented by the medical student and made modifications to such information, when appropriate. I personally performed the physical exam and medical decision making. Blank Garvey, Sep 17, 2021,20:21 STEWART SAVAGE Sep 17, 2021 14:10 BLANK GARVEY DO Sep 17, 2021 20:21
== END 2021-09-17 12:55 | disposition home health service (06) | DRG 315 ==
LOC: EDUNIT# 11:19 → ER 11:24 → ICU 13:21 → 4TH 09-13 16:05
PROVIDERS: ADMIT Internal Medicine; ATTEND Internal Medicine
DX: I95.89 Other hypotension (principal); N17.9 Acute kidney failure, unspecified; E86.1 Hypovolemia; Z96.643 Presence of artificial hip joint, bilateral; J44.9 Chronic obstructive pulmonary disease, unspecified; I10 Essential (primary) hypertension; K21.9 Gastro-esophageal reflux disease without esophagitis; M19.90 Unspecified osteoarthritis, unspecified site; E11.9 Type 2 diabetes mellitus without complications; R74.02 Elevation of levels of lactic acid dehydrogenase [LDH]; E86.0 Dehydration; Z79.84 Long term (current) use of oral hypoglycemic drugs; Z79.899 Other long term (current) drug therapy; S30.0XXA Contusion of lower back and pelvis, initial encounter
CPT/HCPCS: 36415; 51701; 70450; 71045; 71046; 72170; 74176; 80048; 80053; 80076; 81000; 82805; 82947; 83605; 83880; 84145; 84550; 85025; 85610; 85652; 85730; 86141; 87040; 87081; 87088; 94760; 96361; 96374; 99291

== ENCOUNTER 2022-02-25 15:43 | Day surgery (SDC) | payer MEDICARE ==
[~2022-02-25] VITALS: Ht 157.5 cm; Wt 84.6 kg
[~2022-02-25 15:43] MED LIST: ACET-168 PO; ATOR10TA66 PO; CETI10TA49 PO; CITA40TA13 PO; CYCL10TA25 PO; GABA300C PO; GABA300S2 PO; GLBR2.5T PO; LISI20TA26 PO; LOPE-134 PO; LOPE1LIQ7 PO; METF-397 PO; METF-865 PO; MIRA50TA PO; NF-COLE1GM PO; OMEP40CA6 PO; OXYC5CAP18 PO; OXYC5TAB PO; SITA100T12 PO; TRAM100T40 PO; TRAM50TA3 PO
--- NOTE | 2022-02-25 15:52 | ED Lower Extremity ---
General Stated Complaint: FALL Source: patient Exam Limitations: no limitations History of Present Illness Date Seen by Provider: Feb 25, 2022 Time Seen by Provider: 15:49 Initial Comments Patient is a 66-year-old female who presents the ED with right ankle pain. Around 30 minutes ago patient slipped out of a rolling chair when her right foot got caught underneath the [place]. Patient had immediate pain. She reports swelling and bruising. He was not able to stand or bear weight. Brought to the ED by EMS and was given 50 of fentanyl in route. No history of previous fracture. She states she landed on her butt but denies of any head pain, loss of consciousness. She reports some numbness and tingling but pain appears to be improving. Rates 6 out of 10 pain. Swelling and bruising noted. Palpable pulses distally noted. She denies hitting her head, loss of consciousness. Only complaint is right ankle pain. Allergies and Home Medications Allergies Coded Allergies: No Known Drug Allergies (Unverified , 12/02/20) Patient Home Medication List Home Medication List Reviewed: Yes Acetaminophen (Acetaminophen Extra Strength) 500 Mg Tablet, 1,000 MG PO BID, (Reported) Entered as Reported by: RADHA MORAN on 09/14/21 1354 Atorvastatin Calcium (Atorvastatin Calcium) 10 Mg Tablet, 10 MG PO DAILY, (Reported) Entered as Reported by: CARTER BALDERAS on 09/13/21 1739 Cetirizine HCl (Zyrtec) 10 Mg Tablet, 10 MG PO DAILY, (Reported) Entered as Reported by: RADHA MORAN on 09/14/21 1312 Citalopram Hydrobromide (Citalopram HBr) 40 Mg Tablet, 40 MG PO DAILY, (Reported) Entered as Reported by: CARTER BALDERAS on 09/13/21 1739 Colestipol HCl (Colestid) 1 Gm Tab, 1 GM PO BID, (Reported) Entered as Reported by: CARTER BALDERAS on 09/13/21 1739 Cyclobenzaprine HCl (Cyclobenzaprine HCl) 10 Mg Tablet, 10 MG PO Q8H PRN for MUSCLE SPASMS, (Reported) Entered as Reported by: RADHA MORAN on 09/14/21 1348 Gabapentin (Neurontin) 300 Mg Capsule, 300 MG PO HS, (Reported) Entered as Reported by: RADHA MORAN on 09/14/21 1403 Glyburide (Glyburide) 2.5 Mg Tablet, 2.5 MG PO DAILY, (Reported) Entered as Reported by: CARTER BALDERAS on 09/13/21 173 Lisinopril (Lisinopril) 20 Mg Tablet, 20 MG PO DAILY, (Reported) Entered as Reported by: CARTER BALDERAS on 09/13/21 173 Loperamide HCl (Imodium A-D) 2 Mg Tablet, 2 MG PO DAILY PRN for DIARRHEA, (Reported) Entered as Reported by: RADHA MORAN on 09/14/21 1515 Metformin HCl (Metformin HCl ER) 500 Mg Tab.er.24h, 500 MG PO BID, (Reported) Entered as Reported by: RADHA MORAN on 09/14/21 1359 Mirabegron (Myrbetriq) 50 Mg Tab.er.24h, 50 MG PO DAILY, (Reported) Entered as Reported by: CARTER BALDERAS on 09/13/21 173 Omeprazole (Omeprazole) 40 Mg Capsule.dr, 40 MG PO DAILY, (Reported) Entered as Reported by: CARTER BALDERAS on 09/13/21 173 Oxycodone HCl (Oxycodone HCl) 5 Mg Tablet, 5-10 MG PO Q4H PRN for PAIN-SEVERE (8 -10) Prescribed by: DAGMAR GARVEY on 09/17/21 1126 Sitagliptin Phosphate (Januvia) 100 Mg Tablet, 100 MG PO DAILY, (Reported) Entered as Reported by: CARTER BALDERAS on 09/13/21 173 Tramadol HCl (Tramadol HCl) 50 Mg Tablet, 100 MG PO Q6H PRN for PAIN-MODERATE (5-7), (Reported) Entered as Reported by: RADHA MORAN on 09/14/21 1350 Review of Systems Constitutional: No chills, No diaphoresis, No fever, No malaise EENTM: No blurred vision, No double vision, No vision loss, No dental problems Respiratory: No cough, No dyspnea on exertion, No short of breath Cardiovascular: No chest pain, No edema Gastrointestinal: No abdominal pain, No diarrhea, No nausea, No vomiting Genitourinary: No decreased output, No discharge Musculoskeletal: joint pain, joint swelling, muscle pain Skin: change in color All Other Systems Reviewed Negative Unless Noted: Yes Past Rpztxgk-Ousnit-Aptwnu Hx Immunizations Up To Date Tetanus Booster (TDap): Unknown First/Initial COVID19 Vaccinat: 2020 Second COVID19 Vaccination Arpan: 07/2021 Seasonal Allergies Seasonal Allergies: No Past Medical History Surgery/Hospitalization HX: L hip replacement R hip replacement hysterectomy Surgeries: Yes Hysterectomy, Orthopedic Respiratory: Yes (home 02 at hs) COPD Cardiac: Yes Hypertension 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 oz. kg; 34.54 BMI Method: General Appearance: WD/WN, no apparent distress HEENT: PERRL/EOMI, normal ENT inspection, TMs normal Neck: non-tender, full range of motion, supple, normal inspection Cardiovascular: regular rate, rhythm, no edema, no gallop, no JVD Respiratory: chest non-tender, lungs clear, normal breath sounds Gastrointestinal: normal bowel sounds, non tender, soft Back: normal inspection, no CVA tenderness Ankles: right ankle bone tenderness, right ankle soft tissue tenderness, right ankle swelling Neurologic/Tendon: normal sensation, normal motor functions, normal tendon functions, other (+2 dorsalis pedis. Cap refill less than 3.) Skin: other (Bruising and swelling noted to right ankle.) Procedures/Interventions Procedure: Etomidate 15mg was used Patient Education: Explained Benefits, Explained Risks, Pt. Ack. Understanding Agreement on procedure with pt: Yes Patient History: Sleep Apnea Breath Sounds per Auscultation: Clear Heart Sounds per Auscultation: Regular Airway Exam: Mouth opens >2 fingers, Neck Full Range of Motion, Visulation of Uvula Sedation Adminstration Time: 16:27 Total Time spent in CS 4 Patient tolerated sedation. No issues with breathing. Stable vital signs Re-examination Improvement of symptoms 1 hour post sedation Splinting and Joint Reduction : Location: right ankle Pre-Proc Neuro Vasc Exam: normal Post-Proc Neuro Vasc Exam: normal Reduction Attempts: 1 Pre-Procedure NV Exam: Yes post joint reduction film: joint reduced Progress Neurovascular intact preprocedure. Post reduction neurovascular intact. Was placed in a short leg posterior and reverse sugar tong. Neurovascular intact. Patient tolerated procedure well. Fractures noted. Pranav wrap: Yes Hand-Made Type: fiberglass Splint Application: Short Leg Progress/Results/Core Measures Results/Orders Lab Results Laboratory Tests Test 02/25/22 15:47 Range/Units White Blood Count 7.3 4.3-11.0 10^3/uL Red Blood Count 4.64 3.80-5.11 10^6/uL Hemoglobin 13.2 11.5-16.0 g/dL Hematocrit 40 35-52 % Mean Corpuscular Volume 86 80-99 fL Mean Corpuscular Hemoglobin 28 25-34 pg Mean Corpuscular Hemoglobin Concent 33 32-36 g/dL Red Cell Distribution Width 13.3 10.0-14.5 % Platelet Count 170 130-400 10^3/uL Mean Platelet Volume 12.9 H 9.0-12.2 fL Immature Granulocyte % (Auto) 0 % Neutrophils (%) (Auto) 59 42-75 % Lymphocytes (%) (Auto) 32 12-44 % Monocytes (%) (Auto) 6 0-12 % Eosinophils (%) (Auto) 3 0-10 % Basophils (%) (Auto) 1 0-10 % Neutrophils # (Auto) 4.3 1.8-7.8 10^3/uL Lymphocytes # (Auto) 2.3 1.0-4.0 10^3/uL Monocytes # (Auto) 0.5 0.0-1.0 10^3/uL Eosinophils # (Auto) 0.2 0.0-0.3 10^3/uL Basophils # (Auto) 0.0 0.0-0.1 10^3/uL Immature Granulocyte # (Auto) 0.0 0.0-0.1 10^3/uL Percent Immature Platelet Fraction 8.9 H 0.0-7.6 % Sodium Level 138 135-145 MMOL/L Potassium Level 3.8 3.6-5.0 MMOL/L Chloride Level 102 98-107 MMOL/L Carbon Dioxide Level 19 L 21-32 MMOL/L Anion Gap 17 H 5-14 MMOL/L Blood Urea Nitrogen 12 7-18 MG/DL Creatinine 0.72 0.60-1.30 MG/DL Estimat Glomerular Filtration Rate 93 BUN/Creatinine Ratio 17 Glucose Level 177 H 70-105 MG/DL Calcium Level 9.2 8.5-10.1 MG/DL Corrected Calcium 9.4 8.5-10.1 MG/DL Total Bilirubin 0.3 0.1-1.0 MG/DL Aspartate Amino Transf (AST/SGOT) 19 5-34 U/L Alanine Aminotransferase (ALT/SGPT) 20 0-55 U/L Alkaline Phosphatase 108 40-136 U/L Total Protein 7.4 6.4-8.2 GM/DL Albumin 3.8 3.2-4.5 GM/DL My Orders Orders - DARREL PACHECO Ankle, Right, 3 Views (02/25/22 15:49) Etomidate Injection (Amidate Injection) (02/25/22 16:30) Etomidate Injection (Amidate Injection) (02/25/22 16:21) Ankle, Right, 2 Views (02/25/22 16:39) Medications Given in ED Current Medications Medications Dose Ordered Sig/Costa Route Start Time Stop Time Status Last Admin Dose Admin Etomidate 20 mg ONCE ONCE IV 02/25/22 16:30 02/25/22 16:31 DC 02/25/22 16:27 20 MG Vital Signs/I&O 02/25/22 02/25/22 02/25/22 02/25/22 15:55 16:20 16:22 16:25 Temp 36.8 36.8 36.8 Pulse 82 82 78 Resp 18 22 B/P (MAP) 149/71 (97) 153/76 141/85 Pulse Ox 94 95 95 O2 Delivery Room Air Nasal Cannula Nasal Cannula O2 Flow Rate 2.00 2.00 02/25/22 02/25/22 02/25/22 02/25/22 16:30 16:35 16:40 16:45 Temp 36.8 36.8 36.8 36.8 Pulse 81 80 75 75 Resp 16 16 22 B/P (MAP) 165/84 176/91 168/91 166/91 Pulse Ox 95 98 98 98 O2 Delivery Nasal Cannula Nasal Cannula Nasal Cannula Nasal Cannula O2 Flow Rate 2.00 2.00 2.00 2.00 02/25/22 02/25/22 02/25/22 16:50 16:55 17:00 Temp 36.8 36.8 36.8 Pulse 76 74 75 Resp 18 16 14 B/P (MAP) 151/81 144/69 132/72 Pulse Ox 97 98 96 O2 Delivery Nasal Cannula Nasal Cannula Room Air O2 Flow Rate 2.00 2.00 Comment Sinus rhythm, 76 bpm, QRS duration 86 MS, QTc 432 MS Departure Communication (Admissions) Time/Spoke to Admitting Phy: 17:18 Patient was discussed with Dr. Jc after successful reduction. Considered unstable fracture will need surgical intervention. He recommend surgery in the morning. N.p.o. after midnight. Pain control. He will provide some orders as well. Admission under observation Communication (PCP) Patient with a history of sleep apnea, diabetes, hypertension., COPD. Impression Primary Impression: Ankle fracture Disposition: ADMITTED INPATIENT Condition: Stable Admissions Decision to Admit Reason: Admit from ER (General) Decision to Admit/Date: Feb 25, 2022 Time/Decision to Admit Time: 17:18 Departure-Patient Inst. Referrals: DEVORA TREVINO MD (PCP/Family) Primary Care Physician DARREL PACHECO Feb 25, 2022 15:52
--- NOTE | 2022-02-25 16:08 | Diagnostic Imaging Report ---
INDICATION: Ankle pain status post fall. Injury. COMPARISON: None. FINDINGS: Multiple radiographic views of the right ankle were obtained. There is acute fracture and dislocation of the right ankle. The distal tibia is dislocated anteriorly in respect to the talus. There is also longitudinally oriented fracture of the posterior malleolus of the distal tibia and slightly oblique fracture through the base of the medial malleolus. Additionally, there is oblique oriented fracture of the distal fibula with moderate displacement of the fracture fragments. No unexpected radiopaque foreign bodies are seen. IMPRESSION: 1. Acute fracture and dislocation of the right ankle as described above. Dictated by: Dictated on workstation # [id number]
[2022-02-25] MEDS ORDERED: ETOMIDATE IV SOLN 20 MG/10 ML VIAL ONE (16:21)
[2022-02-25] MEDS ORDERED: ETOMIDATE IV SOLN 20 MG/10 ML VIAL IV ONE (16:30)
--- NOTE | 2022-02-25 17:12 | Diagnostic Imaging Report ---
EXAMINATION: Right ankle 2 views. HISTORY: Reduction COMPARISON: 02/25/2022. FINDINGS: There is improved anatomic alignment of the distal fibular fracture. No significant displacement is seen. Better alignment of the ankle mortise. There is improved alignment of the distal tibia with improved alignment of the posterior and lateral tibial fracture. Fine soft tissue detail is limited secondary to overlying casting material. IMPRESSION: Improved alignment of the distal right fibular and tibial fractures status post reduction. Dictated by: Dictated on workstation # [id number]
[2022-02-25] MEDS ORDERED: morphine INJ 10 MG/ML 1ML (SYR OR VIAL) IVP ONE (17:15)
[2022-02-25 17:27] LABS: HEMOGLOBIN 13.2 g/dL (11.5-16.0); LYMPHOCYTES % (AUTO) 32 % (12-44)
[2022-02-25 17:28] LABS: BASOPHILS % (AUTO) 1 % (0-10); EOSINOPHILS # (AUTO) 0.2 10^3/uL (0.0-0.3); EOSINOPHILS % (AUTO) 3 % (0-10); HEMATOCRIT 40 % (35-52); LYMPHOCYTES # (AUTO) 2.3 10^3/uL (1.0-4.0); MEAN CORPUSCULAR HEMOGLOBIN 28 pg (25-34); MEAN CORPUSCULAR HGB CONC 33 g/dL (32-36); MEAN CORPUSCULAR VOLUME 86 fL (80-99); MEAN PLATELET VOLUME 12.9 fL (9.0-12.2); MONOCYTES # (AUTO) 0.5 10^3/uL (0.0-1.0); MONOCYTES % (AUTO) 6 % (0-12); NEUTROPHILS # (AUTO) 4.3 10^3/uL (1.8-7.8); NEUTROPHILS % (AUTO) 59 % (42-75); PLATELET COUNT 170 10^3/uL (130-400); WHITE BLOOD COUNT 7.3 10^3/uL (4.3-11.0)
[2022-02-25] MEDS ORDERED: diphenhydrAMINE 50 MG/ML INJ (BENADRYL) IM ONE (17:30)
[2022-02-25 17:37] LABS: ALBUMIN 3.8 GM/DL (3.2-4.5); POTASSIUM 3.8 MMOL/L (3.6-5.0)
[2022-02-25 17:38] LABS: CALCIUM 9.2 MG/DL (8.5-10.1)
[2022-02-25 17:39] LABS: TOTAL PROTEIN 7.4 GM/DL (6.4-8.2)
--- NOTE | 2022-02-25 17:39 | Diagnostic Imaging Report ---
EXAMINATION: Chest 1 view HISTORY: Preop clearance. COMPARISON: 09/14/2021. FINDINGS: The lung volumes are normal. No focal consolidation is seen. No large pleural effusion or pneumothorax is seen. The cardiomediastinal silhouette is normal in size and contour. No acute osseous abnormality is seen. IMPRESSION: 1. No acute pleuroparenchymal process. Dictated by: Dictated on workstation # [id number]
[2022-02-25 17:41] LABS: BILIRUBIN,TOTAL 0.3 MG/DL (0.1-1.0)
[2022-02-25 17:43] LABS: CREATININE SERUM 0.72 MG/DL (0.60-1.30)
[2022-02-25] MEDS ORDERED: MELO7.5T46 PO (18:32)
[2022-02-25] MEDS ORDERED: CATHETER FLUSH 10 ML SYR IVP PRN (18:45)
[2022-02-25] MEDS ORDERED: ACETAMINOPHEN 325 MG TABLET PO PRN (18:45)
[2022-02-25 19:00] VITALS: BP 127/65
[2022-02-25] MEDS: fentaNYL INJ 100 MCG/2 ML AMP IV PRN ×2 (19:39→21:54)
[2022-02-25] MEDS: CATHETER FLUSH 10 ML SYR IVP SCH (19:39)
[2022-02-26] VITALS (13 sets, daily range): BP systolic 127–168; BP diastolic 63–96
[2022-02-26] MEDS: MELATONIN 3 MG TABLET PO SCH ×2 (00:39→20:00)
[2022-02-26] MEDS: fentaNYL INJ 100 MCG/2 ML AMP IV PRN ×3 (00:40→18:20)
[2022-02-26] MEDS: CATHETER FLUSH 10 ML SYR IVP SCH ×3 (04:40→20:00)
--- NOTE | 2022-02-26 07:38 | History & Physical Orthopedic ---
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 Genitourinary: No Gastrointestinal: Yes Gastroesophageal Reflux Musculoskeletal: Yes Arthritis Endocrine: Yes Diabetes, Non-Insulin dep HEENT: No Cancer: No Psychosocial: No Integumentary: No Blood Disorders: No Social History - Family History - Review of Systems - Allergies: Coded Allergies: No Known Drug Allergies (Unverified , 12/02/20) Home Meds Reported Medications Meloxicam (Meloxicam) 7.5 Mg Tablet, 7.5 MG PO DAILY, TAB 02/25/22 Metformin HCl (Metformin HCl ER) 500 Mg Tab.er.24h, 500 MG PO BID 09/14/21 Cetirizine HCl (Zyrtec) 10 Mg Tablet, 10 MG PO DAILY, TAB 09/14/21 Citalopram Hydrobromide (Citalopram HBr) 40 Mg Tablet, 40 MG PO DAILY 09/13/21 Colestipol HCl (Colestid) 1 Gm Tab, 2 GM PO BID, TAB 09/13/21 Lisinopril (Lisinopril) 20 Mg Tablet, 20 MG PO DAILY, TAB 09/13/21 Mirabegron (Myrbetriq) 50 Mg Tab.er.24h, 50 MG PO DAILY, TAB 09/13/21 Atorvastatin Calcium (Atorvastatin Calcium) 10 Mg Tablet, 10 MG PO DAILY, TAB 09/13/21 Sitagliptin Phosphate (Januvia) 100 Mg Tablet, 100 MG PO DAILY, TAB 09/13/21 Omeprazole (Omeprazole) 40 Mg Capsule.dr, 40 MG PO DAILY, CAP 09/13/21 Discontinued Reported Medications Loperamide HCl (Imodium A-D) 2 Mg Tablet, 2 MG PO DAILY PRN for DIARRHEA, TAB 09/14/21 Gabapentin (Neurontin) 300 Mg Capsule, 300 MG PO HS 09/14/21 Acetaminophen (Acetaminophen Extra Strength) 500 Mg Tablet, 1000 MG PO BID, TAB 09/14/21 Tramadol HCl (Tramadol HCl) 50 Mg Tablet, 100 MG PO Q6H PRN for PAIN-MODERATE (5-7) TAKES 2 50MG TABS 09/14/21 Cyclobenzaprine HCl (Cyclobenzaprine HCl) 10 Mg Tablet, 10 MG PO Q8H PRN for MU SCLE SPASMS 09/14/21 Glyburide (Glyburide) 2.5 Mg Tablet, 2.5 MG PO DAILY, TAB 09/13/21 Discontinued Scripts Oxycodone HCl (Oxycodone HCl) 5 Mg Tablet, 5-10 MG PO Q4H PRN for PAIN-SEVERE (8-10), #20 TAB Prov:DAGMAR GARVEY DO 09/17/21 Objective Exam Right Ankle: Splint intact, toes up/down, sensation grossly intact to light touch, cap refill brisk Vital Signs Vital Signs Date Time Temp Pulse Resp B/P (MAP) Pulse Ox O2 Delivery O2 Flow Rate FiO2 02/26/22 04:33 36.5 79 20 153/73 (99) 94 Nasal Cannula 2.00 02/26/22 00:40 36.5 72 20 130/78 (95) 94 Nasal Cannula 2.00 02/25/22 19:32 Room Air 02/25/22 19:00 36.4 75 20 127/65 (85) 95 Room Air 02/25/22 18:59 95 Room Air 02/25/22 18:15 78 18 133/66 95 Nasal Cannula 2.00 02/25/22 17:00 36.8 75 14 132/72 96 Room Air 02/25/22 16:55 36.8 74 16 144/69 98 Nasal Cannula 2.00 02/25/22 16:50 36.8 76 18 151/81 97 Nasal Cannula 2.00 02/25/22 16:45 36.8 75 22 166/91 98 Nasal Cannula 2.00 02/25/22 16:40 36.8 75 20 168/91 98 Nasal Cannula 2.00 02/25/22 16:35 36.8 80 16 176/91 98 Nasal Cannula 2.00 02/25/22 16:30 36.8 81 16 165/84 95 Nasal Cannula 2.00 02/25/22 16:25 36.8 78 22 141/85 95 Nasal Cannula 2.00 02/25/22 16:22 Nasal Cannula 2.00 02/25/22 16:20 36.8 82 18 153/76 95 Room Air 02/25/22 15:55 36.8 82 18 149/71 (97) 94 I & O 02/26/22 07:00 Intake Total 355 ml Output Total 1300 ml Balance -945 ml Lab Results Laboratory Tests 02/25/22 15:47: White Blood Count 7.3, Red Blood Count 4.64, Hemoglobin 13.2, Hematocrit 40, Mean Corpuscular Volume 86, Mean Corpuscular Hemoglobin 28, Mean Corpuscular Hemoglobin Concent 33, Red Cell Distribution Width 13.3, Platelet Count 170, Mean Platelet Volume 12.9H, Immature Granulocyte % (Auto) 0, Neutrophils (%) (Auto) 59, Lymphocytes (%) (Auto) 32, Monocytes (%) (Auto) 6, Eosinophils (%) (Auto) 3, Basophils (%) (Auto) 1, Neutrophils # (Auto) 4.3, Lymphocytes # (Auto) 2.3, Monocytes # (Auto) 0.5, Eosinophils # (Auto) 0.2, Basophils # (Auto) 0.0, Immature Granulocyte # (Auto) 0.0, Percent Immature Platelet Fraction 8.9H, So dium Level 138, Potassium Level 3.8, Chloride Level 102, Carbon Dioxide Level 19L, Anion Gap 17H, Blood Urea Nitrogen 12, Creatinine 0.72, Estimat Glomerular Filtration Rate 93, BUN/Creatinine Ratio 17, Glucose Level 177H, Calcium Level 9.2, Corrected Calcium 9.4, Total Bilirubin 0.3, Aspartate Amino Transf (AST/SGOT) 19, Alanine Aminotransferase (ALT/SGPT) 20, Alkaline Phosphatase 108, Total Protein 7.4, Albumin 3.8 02/25/22 22:17: SARS-CoV-2 RNA (RT-PCR) Not Detected Imaging Multiple views of the right ankle from 02/25/22 were reviewed from PACS and demonstrated a displaced trimalleolar ankle fracture Assessment and Plan Assessment Right Trimalleolar Ankle Fracture Problem List Right Trimalleolar Ankle Fracture Plan I have recommended ORIF of the right ankle fracture. Discussed the nature of the procedure and the postoperative course. Will plan on proceeding later this AM. Discussed risks of anesthesia, nonunion, malunion, and infection. Questions were answered. Final Diagonsis Right Trimalleolar Ankle Fracture Level of the visit: Level 3 (preop) EMELY SOUTH MD Feb 26, 2022 07:38
[2022-02-26] MEDS ORDERED: BUPIVACAINE 0.25% 30 ML (SENSORCAINE) VIAL ONE (07:50)
[2022-02-26] MEDS ORDERED: NEO/POLY/BAC (NEOSPORIN) OINT 15 GM TUBE ONE (07:50)
[2022-02-26] MEDS ORDERED: LACTATED RINGERS 1,000 ML IV PRN ×2 (08:00→09:30)
[2022-02-26] MEDS ORDERED: ceFAZolin INJECTION 1,000 MG VIAL IV NR (08:30)
[2022-02-26] MEDS ORDERED: ceFAZolin 2 GM IV Premixed 50 ML ONE (08:33)
[2022-02-26] MEDS ORDERED: proPOfol 200 MG/20 ML (DIPRIVAN) VIAL IV ONE (08:50)
[2022-02-26] MEDS ORDERED: LIDOCAINE PF 2% 5 ML (XYLOCAINE) VIAL ONE (08:50)
[2022-02-26] MEDS ORDERED: ONDANSETRON 4 MG/2 ML (SDV) Z0FRAN ONE (08:50)
[2022-02-26] MEDS ORDERED: MIDAZOLAM 2 MG/2 ML (VERSED) VIAL ONE (08:51)
[2022-02-26] MEDS ORDERED: fentaNYL INJ 100 MCG/2 ML AMP ONE (08:51)
[2022-02-26] MEDS ORDERED: SEVOFLURANE (ULTANE) 15 ML INHAL SOLN ONE ×2 (10:24→10:49)
--- NOTE | 2022-02-26 11:08 | Operative Report - Ortho ---
Operative Report Surgeon (s)/Electro Mechanic (s) Surgeon EMELY SOUTH MD Electro Mechanic n/a Pre-Operative Diagnosis Right Trimalleolar Ankle Fracture Post-Operative Diagnosis same Operative Report Date of Procedure: Feb 26, 2022 Name of Procedure Performed: Open Reduction and Internal Fixation of Right Trimalleolar Ankle Fracture Description & Findings After obtaining informed consent and marking the patient, patient did receive intravenous antibiotics. Taken to the operating room and general anesthesia was induced. Surgical timeout was taken. The right lower extremity was prepped and draped in the usual sterile fashion. Attention was initially turned to the fibula fracture, incision was made centered over the fracture. Dissection was carried down to the fracture and a periosteal elevator was used to expose the fibula proximally and distally. The fracture was provisionally reduced using clamps. A Variax distal fibular plate was selected and placed. A wire was placed distally to position and temporarily hold the plate. A nonlocking screw was placed in the diaphysis of the fibula. A nonlocking screw was then placed distally. C-arm demonstrated good position of the plate with near anatomic reduction of the fracture. Wire was removed. Locking screws were used to fill the distal holes of the plate. Two additional locking screws were placed in the proximal portion of the plate. Clamp was removed. C-arm demonstrated appropriate position of the plate and screws and maintained reduction of the fracture with a small posterior butterfly fragment. Attention was turned to the medial side. The medial malleolar fracture demonstrated adequate reduction. 2 wires were placed through the medial malleolar fragment and across the fracture site. The first wire was anterior and the second wire was posterior. C-arm was used to confirm position of the wires. After drilling the distal cortex, 2 4.0 mm cannulated screws were then placed over the wires. Both measured 46 mm. Wires were removed. Final C-arm images were obtained in the AP, mortise, and lateral views and demonstrated appropriate reduction of the fractures and hardware in good position. The posterior malleolus fragment had reduced into near anatomic p osition and it was elected to manage it without additional fixation. Images were transferred to PACS. Wounds were irrigated with normal saline. Closed with 2-0 vicryl, 3-0 vicryl, and a combination of 3-0 and 4-0 nylon. Wounds were injected with local anesthetic. Dressed with xeroform, 4x4s, ABD, cast padding, soft roll, posterior splint, and ERWIN wrap. Patient tolerated the p rocedure well and was stable to the recovery room. Anesthesia Type General Estimated Blood Loss Less than 50 mL Specimen(s) collected/removed None EMELY SOUTH MD Feb 26, 2022 11:07
[2022-02-26] MEDS ORDERED: OXC5T PO (11:12)
[2022-02-26] MEDS ORDERED: HYDROmorphone 2 MG/ML VIAL (DILAUDID) IV ONE (11:30)
[2022-02-26] MEDS ORDERED: ONDANSETRON 4 MG/2 ML (SDV) Z0FRAN IVP PRN (11:30)
--- NOTE | 2022-02-26 11:30 | Diagnostic Imaging Report ---
INDICATION: Fluoroscopy for right ankle ORIF. FINDINGS: Fluoroscopy was provided in the OR during right ankle ORIF. 73 seconds of fluoroscopic time was utilized. Four images were obtained demonstrating lateral plate and numerous screws transfixing the distal fibula. There are two partially threaded screws transfixing the medial malleolus. Ankle mortise is well maintained. Alignment is anatomic. IMPRESSION: Fluoroscopy for right ankle ORIF. Dictated by: Dictated on workstation # [id number]
--- NOTE | 2022-02-26 12:00 | Anesthesia-General Post-Op ---
General Patient Condition Mental Status/LOC: Same as Preop Cardiovascular: Satisfactory Nausea/Vomiting: Absent Respiratory: Satisfactory Pain: Controlled Complications: Absent Post Op Complications Complications None Follow Up Care/Instructions Patient Instructions None needed. Anesthesia/Patient Condition Patient Condition Patient is doing well, no complaints, stable vital signs, no apparent adverse anesthesia problems. No complications reported per nursing. ADAMA DEGROOT CRNA Feb 26, 2022 12:00
--- NOTE | 2022-02-26 13:52 | Physical Therapy Evaluation ---
PT Evaluation-General Medical Diagnosis Admission Date Feb 25, 2022 at 17:11 Medical Diagnosis: right ankle fracture Onset Date: Feb 25, 2022 Therapy Diagnosis Therapy Diagnosis: debility/weakness Precautions Precautions/Isolations: Fall Prevention, Standard Precautions Weight Bear Status Right Lower Extremity: Right Non Weight Bearing Left Lower Extremity: Left Full Weight Bearing Referral Physician: Babita Reason for Referral: Evaluation/Treatment Medical History Pertinent Medical History: COPD, DM, HTN Additional Medical History bilateral THR Current History EMS secondary patient slid off rolling chair pinning right foot under china hutch Reviewed History: Yes Social History Home: Single Level Current Living Status: Spouse Entry Into Home: Stairs With Railing PT Steps Into Home: 4 Prior Prior Level of Function SCALE: Activities may be completed with or without assistive devices. 3-Zvtvdifltm-xhmpven completes the activity by him/herself with no assistance from a helper. 5-Set-up or Clean-up Assistance-helper sets up or cleans up; patient completes activity. [place] assists only prior to or following the activity. 4-Supervision or Touching Assistance-helper provides verbal cues and/or touching/steadying and/or contact guard assistance as patient completes activity. Assistance may be provided throughout the activity or intermittently. 3-Partial/Moderate Assistance-helper does LESS THAN HALF the effort. [place] lifts, holds or supports trunk or limbs, but provides less than half the effort. 2-Substantial/Maximal Assistance-helper does MORE THAN HALF the effort. [place] lifts or holds trunk or limbs and provides more than half the effort. 3-Mnwuoxzdk-ezkaej does ALL the effort. Patient does none of the effort to complete the activity. Or, the assistance of 2 or more helpers is required for the patient to complete the activity. If activity was not attempted, code reason: 7-Patient Refused. 9-Not Applicable-not attempted and the patient did not perform the activity before the current illness, exacerbation or injury. 10-Not Attempted due to Environmental Limitations-(lack of equipment, weather restraints, etc.). 88-Not Attempted due to Medical Conditions or Safety Concerns. Bed Mobility: 6 Transfers (B,C,W/C): 6 Gait: 6 Stairs: 6 Indoor Mobility (Ambulation): Independent Stairs: Independent Prior Devices Use: None PT Evaluation-Current Subjective Patient reluctantly agrees to PT. Pain Numeric Pain Scale: 8 Location: Right Location Body Site: Ankle Pain Description: Acute Objective Patient Orientation: Normal For Age Attachments: IV ROM/Strength ROM Lower Extremities left LE WFL/right LE soft cast ankle Strength Lower Extremities left LE 3/5 grossly/right LE 3-/5 grossly Neuromuscular (Tone, Coordination, Reflexes) grossly intact Sensory Vision: Functional Hearing: Functional Transfers Roll Left to Right (QC): 3 Sit to Lying (QC): 3 Lying to Sitting/Side of Bed(Q: 3 Sit to Stand (QC): 2 difficulty maintaining NWB right LE Gait Does the Patient Walk?: No and Walking Goal IS indicated Balance Sitting Static: Fair Sitting Dynamic: Fair Standing Static: Poor Assessment/Needs severely impaired mobility with difficulty maintaining NWB right LE. Noted weakness/tolerates minimal activity Rehab Potential: Fair PT Petroleum Inspector Goals Petroleum Inspector Goals PT Petroleum Inspector Goals Time Frame: Mar 20, 2022 Roll Left & Right (QC): 6 Sit to Lying (QC): 6 Lying-Sitting on Side/Bed(QC): 6 Sit to Stand (QC): 6 Chair/Pss-rs-Hpzhr Xfer(QC): 6 Toilet Transfer (QC): 6 Walk 10 feet (QC): 4 Walk 50ft with 2 Turns (QC): 4 PT Plan Problem List Problem List: Activity Tolerance, Functional Strength, Safety, Balance, Gait, Transfer, Bed Mobility Treatment/Plan Treatment Plan: Continue Plan of Care Treatment Plan: Bed Mobility, Education, Functional Activity Cleve, Functional Strength, Gait, Safety, Therapeutic Exercise, Transfers Treatment Duration: Mar 20, 2022 Frequency: 11 times per week Estimated Hrs Per Day: .5 hour per day Discharge Recommendations Therapy Discharge Recommendati: Post Acute PT Time/GCodes Time In: 1330 Time Out: 1340 Total Billed Treatment Time: 10 Total Billed Treatment 1 visit EVMod 10 min ZECHARIAH PAYAN PT Feb 26, 2022 13:52
[2022-02-27 04:08] VITALS: BP 138/77
[2022-02-27] MEDS: CATHETER FLUSH 10 ML SYR IVP SCH ×3 (06:22→20:18)
[2022-02-27 08:49] VITALS: BP 132/76
[2022-02-27 11:30] VITALS: BP 149/83
--- NOTE | 2022-02-27 12:14 | Physical Therapy Daily Note ---
PT Daily Note-Current Subjective Pt up in chair, reports right ankle pain 7/10. Mental Status Patient Orientation: Normal For Age Transfers SCALE: Activities may be completed with or without assistive devices. 8-Ezhfebrnpo-gxxhzbx completes the activity by him/herself with no assistance from a helper. 5-Set-up or Clean-up Assistance-helper sets up or cleans up; patient completes activity. [place] assists only prior to or following the activity. 4-Supervision or Touching Assistance-helper provides verbal cues and/or touching/steadying and/or contact guard assistance as patient completes activity. Assistance may be provided throughout the activity or intermittently. 3-Partial/Moderate Assistance-helper does LESS THAN HALF the effort. [place] lifts, holds or supports trunk or limbs, but provides less than half the effort. 2-Substantial/Maximal Assistance-helper does MORE THAN HALF the effort. [place] lifts or holds trunk or limbs and provides more than half the effort. 8-Npbkyhcna-mjiaxv does ALL the effort. Patient does none of the effort to complete the activity. Or, the assistance of 2 or more helpers is required for the patient to complete the activity. If activity was not attempted, code reason: 7-Patient Refused. 9-Not Applicable-not attempted and the patient did not perform the activity before the current illness, exacerbation or injury. 10-Not Attempted due to Environmental Limitations-(lack of equipment, weather restraints, etc.). 88-Not Attempted due to Medical Conditions or Safety Concerns. Sit to Stand (QC): 4 Chair/Spc-tb-Itplm Xfer(QC): 4 Weight Bearing Right Lower Extremity: Right Non Weight Bearing Left Lower Extremity: Left Full Weight Bearing Gait Training Gait Assistive Device: FWW Ambulate 5ft x 2 trials with MIn A using FWW. Performed 2, 180deg turns to sit. Pt not steady on her feel and requires constant assist for stability. Exercises Seated Therapy Exercises: Ankle pumps, Long arc quads, Hip flexion Seated Reps: 10 Assessment Current Status: Good Progress Improved mobility today compared to yesterday. Pt lacks mobility and strength for d/c to home at this time. Would recommend one more day of acute care for pain control and return of functional mobility. PT Usp Goals Stud Driver Goals PT Usp Goals Time Frame: Mar 20, 2022 Roll Left & Right (QC): 6 Sit to Lying (QC): 6 Lying-Sitting on Side/Bed(QC): 6 Sit to Stand (QC): 6 Chair/Ohp-ke-Iwaam Xfer(QC): 6 Toilet Transfer (QC): 6 Walk 10 feet (QC): 4 Walk 50ft with 2 Turns (QC): 4 PT Plan Treatment/Plan Treatment Plan: Continue Plan of Care Treatment Plan: Bed Mobility, Education, Functional Activity Cleve, Functional Strength, Gait, Safety, Therapeutic Exercise, Transfers Treatment Duration: Mar 20, 2022 Frequency: 11 times per week Estimated Hrs Per Day: .5 hour per day Discharge Recommendations Target Placement home Time/GCodes Time In: 0835 Time Out: 0900 Total Billed Treatment Time: 20 Total Billed Treatment visit, exercise 10 min, gt 10 min KRISTEN DANIELS PT Feb 27, 2022 12:14
[2022-02-27] MEDS ORDERED: PATIENT MAY USE OWN MEDS, ALL MC SCH (12:45)
[2022-02-27] MEDS: CITALOPRAM HYDROBROMIDE 40 MG PO SCH (15:20)
[2022-02-27] MEDS: MELOXICAM 7.5 MG (MOBIC) TABLET PO SCH (15:26)
[2022-02-27] MEDS: lisINopril 20 MG (PRINIVIL) TABLET PO SCH (15:27)
[2022-02-27] MEDS: SITAGLIPTIN 100 MG PO SCH (15:28)
[2022-02-27] MEDS: AtorvaSTATin TABLET 10 MG TABLET PO SCH (15:28)
[2022-02-27 15:42] VITALS: BP 159/79
[2022-02-27] MEDS: fentaNYL INJ 100 MCG/2 ML AMP IV PRN (15:51)
[2022-02-27 19:16] VITALS: BP 103/64
[2022-02-27] MEDS: COLESTIPOL 1 GM (COLESTID) TAB PO SCH (20:17)
[2022-02-27] MEDS: metFORMIN XR 500 MG (GLUCOPHAGE XR) TAB PO SCH (20:17)
[2022-02-27] MEDS: MELATONIN 3 MG TABLET PO SCH (20:18)
[2022-02-27 23:54] VITALS: BP 109/73
[2022-02-28 03:51] VITALS: BP 101/66
[2022-02-28] MEDS: CATHETER FLUSH 10 ML SYR IVP SCH ×3 (06:05→20:29)
[2022-02-28 08:24] VITALS: BP 148/71
--- NOTE | 2022-02-28 08:53 | Physical Therapy Daily Note ---
PT Daily Note-Current Subjective Pt reports she is feeling better but did not sleep well. Ankle pain is more well controlled, rating 4/10. Mental Status Patient Orientation: Normal For Age Transfers SCALE: Activities may be completed with or without assistive devices. 2-Vusjvgazai-gxfrwdx completes the activity by him/herself with no assistance from a helper. 5-Set-up or Clean-up Assistance-helper sets up or cleans up; patient completes activity. [place] assists only prior to or following the activity. 4-Supervision or Touching Assistance-helper provides verbal cues and/or touching/steadying and/or contact guard assistance as patient completes activit y. Assistance may be provided throughout the activity or intermittently. 3-Partial/Moderate Assistance-helper does LESS THAN HALF the effort. [place] lifts, holds or supports trunk or limbs, but provides less than half the effort. 2-Substantial/Maximal Assistance-helper does MORE THAN HALF the effort. [place] lifts or holds trunk or limbs and provides more than half the effort. 3-Utvosyasg-dcnhsw does ALL the effort. Patient does none of the effort to complete the activity. Or, the assistance of 2 or more helpers is required for the patient to complete the activity. If activity was not attempted, code reason: 7-Patient Refused. 9-Not Applicable-not attempted and the patient did not perform the activity before the current illness, exacerbation or injury. 10-Not Attempted due to Environmental Limitations-(lack of equipment, weather restraints, etc.). 88-Not Attempted due to Medical Conditions or Safety Concerns. Roll Left & Right (QC): 6 Sit to Lying (QC): 6 Lying to Sitting/Side of Bed(Q: 6 Sit to Stand (QC): 4 Chair/Pcs-ip-Ddhhp Xfer(QC): 4 Weight Bearing Right Lower Extremity: Right Non Weight Bearing Left Lower Extremity: Left Full Weight Bearing Gait Training Gait Assistive Device: FWW Ambulate 15ft x 2 trials with Min A for balance. Pt NWB on the (R) LE. Exercises Supine Ex: Quad Set, Heel Slides, Hip abd/add Supine Reps: 10 Assessment Current Status: Good Progress, Fair Progress Pt improved gait and bed mobility. Gait limited by generalized fatigue. Pt has stairs at her home. She is not safe at this time to attemp stair training due to LE and UE weakness. DC planning for stairs is an obtacle for return to home. PT Snf Goals Snf Goals PT Snf Goals Time Frame: Mar 20, 2022 Roll Left & Right (QC): 6 Sit to Lying (QC): 6 Lying-Sitting on Side/Bed(QC): 6 Sit to Stand (QC): 6 Chair/Tft-bo-Mhgmy Xfer(QC): 6 Toilet Transfer (QC): 6 Walk 10 feet (QC): 4 Walk 50ft with 2 Turns (QC): 4 PT Plan Treatment/Plan Treatment Plan: Continue Plan of Care Treatment Plan: Bed Mobility, Education, Functional Activity Cleve, Functional Strength, Gait, Safety, Therapeutic Exercise, Transfers Treatment Duration: Mar 20, 2022 Frequency: 11 times per week Estimated Hrs Per Day: .5 hour per day Time/GCodes Time In: 0830 Time Out: 0845 Total Billed Treatment Time: 15 Total Billed Treatment visit, gt 10, ex 5 min KRISTEN DANIELS PT Feb 28, 2022 08:53
[2022-02-28] MEDS: Omeprazole 40 MG PO SCH (09:38)
[2022-02-28] MEDS: COLESTIPOL 1 GM (COLESTID) TAB PO SCH ×2 (09:39→20:24)
[2022-02-28] MEDS: metFORMIN XR 500 MG (GLUCOPHAGE XR) TAB PO SCH ×2 (09:40→20:24)
--- NOTE | 2022-02-28 09:42 | Progress Note - Ortho ---
Progress Note Subjective Date of Exam 02/28/22 Chief Complaint POD #2 ORIF of R Ankle Fx HPI/Events since last exam pain control improved, slow progress with therapy, unable to do stairs and requires this to go home Review of Systems - Allergies: Coded Allergies: No Known Drug Allergies (Unverified , 12/02/20) Home Meds Active Scripts Oxycodone Hcl (OXYIR TABLET) 5 Mg Tab, 5 MG PO Q4H PRN for PAIN-SEVERE (8-10) for 7 Days, #40 TAB 0 Refills Prov:EMELY SOUTH MD 02/26/22 Reported Medications Meloxicam (Meloxicam) 7.5 Mg Tablet, 7.5 MG PO DAILY, TAB 02/25/22 Metformin HCl (Metformin HCl ER) 500 Mg Tab.er.24h, 500 MG PO BID 09/14/21 Cetirizine HCl (Zyrtec) 10 Mg Tablet, 10 MG PO DAILY, TAB 09/14/21 Citalopram Hydrobromide (Citalopram HBr) 40 Mg Tablet, 40 MG PO DAILY 09/13/21 Colestipol HCl (Colestid) 1 Gm Tab, 2 GM PO BID, TAB 09/13/21 Lisinopril (Lisinopril) 20 Mg Tablet, 20 MG PO DAILY, TAB 09/13/21 Mirabegron (Myrbetriq) 50 Mg Tab.er.24h, 50 MG PO DAILY, TAB 09/13/21 Atorvastatin Calcium (Atorvastatin Calcium) 10 Mg Tablet, 10 MG PO DAILY, TAB 09/13/21 Sitagliptin Phosphate (Januvia) 100 Mg Tablet, 100 MG PO DAILY, TAB 09/13/21 Omeprazole (Omeprazole) 40 Mg Capsule.dr, 40 MG PO DAILY, CAP 09/13/21 Discontinued Reported Medications Loperamide HCl (Imodium A-D) 2 Mg Tablet, 2 MG PO DAILY PRN for DIARRHEA, TAB 09/14/21 Gabapentin (Neurontin) 300 Mg Capsule, 300 MG PO HS 09/14/21 Acetaminophen (Acetaminophen Extra Strength) 500 Mg Tablet, 1000 MG PO BID, TAB 09/14/21 Tramadol HCl (Tramadol HCl) 50 Mg Tablet, 100 MG PO Q6H PRN for PAIN-MODERATE (5-7) TAKES 2 50MG TABS 09/14/21 Cyclobenzaprine HCl (Cyclobenzaprine HCl) 10 Mg Tablet, 10 MG PO Q8H PRN for MUSCLE SPASMS 09/14/21 Glyburide (Glyburide) 2.5 Mg Tablet, 2.5 MG PO DAILY, TAB 09/13/21 Discontinued Scripts Oxycodone HCl (Oxycodone HCl) 5 Mg Tablet, 5-10 MG PO Q4H PRN for PAIN-SEVERE (8-10), #20 TAB Prov:DAGMAR GARVEY DO 09/17/21 Objective Exam Right Leg: Splint C/D/I, Toe flex and extend, sensation grossly intact to light touch, cap refill brisk Vital Signs Vital Signs Date Time Temp Pulse Resp B/P (MAP) Pulse Ox O2 Delivery O2 Flow Rate FiO2 02/28/22 08:24 36.6 77 20 148/71 (96) 90 Nasal Cannula 2.00 02/28/22 08:00 90 Room Air 02/28/22 03:51 36.0 75 18 101/66 (78) 95 Nasal Cannula 2.00 02/27/22 23:54 36.0 77 18 109/73 (85) 94 Nasal Cannula 2.00 02/27/22 20:00 Nasal Cannula 2.00 02/27/22 19:16 37.2 89 18 103/64 (77) 93 Nasal Cannula 2.00 02/27/22 15:42 36.8 81 18 159/79 (105) 95 Nasal Cannula 2.00 02/27/22 11:30 37.2 79 18 149/83 (105) 96 Nasal Cannula 2.00 02/27/22 10:50 Nasal Cannula 2.00 I & O 02/28/22 07:00 Intake Total 1470 ml Output Total 1550 ml Balance -80 ml Lab Results Microbiology 02/25/22 MRSA Screen - Final, Complete MRSA not isolated Assessment and Plan Assessment Right Trimalleolar Ankle Fracture s/p ORIF Problem List Right Trimalleolar Ankle Fracture s/p ORIF Plan Continue therapy efforts catering convention services manager consult for D/C planning in AM Final Diagonsis Right Trimalleolar Ankle Fracture s/p ORIF Level of the visit: Level 3 (global postop) EMELY SOUTH MD Feb 28, 2022 09:42
[2022-02-28] MEDS ORDERED: AtorvaSTATin TABLET 10 MG TABLET PO ONE (10:45)
[2022-02-28] MEDS ORDERED: CETIRIZINE PO ONE (10:45)
[2022-02-28] MEDS ORDERED: MELOXICAM 7.5 MG (MOBIC) TABLET PO ONE (10:45)
[2022-02-28] MEDS ORDERED: SITAGLIPTIN PO ONE (10:45)
[2022-02-28] MEDS ORDERED: lisINopril 20 MG (PRINIVIL) TABLET PO ONE (10:45)
[2022-02-28] MEDS ORDERED: MIRABEGRON PO ONE (10:45)
[2022-02-28] MEDS ORDERED: CITALOPRAM HYDROBROMIDE 40 MG PO ONE (11:15)
[2022-02-28 11:45] VITALS: BP 132/71
[2022-02-28] MEDS ORDERED: 1/2 NS IV ONE (15:30)
[2022-02-28 15:47] VITALS: BP 93/57
[2022-02-28 19:41] VITALS: BP 142/74
[2022-02-28] MEDS: MELATONIN 3 MG TABLET PO SCH (20:25)
[2022-03-01] VITALS: BP 125/68
[2022-03-01 04:00] VITALS: BP 138/67
[2022-03-01] MEDS: CATHETER FLUSH 10 ML SYR IVP SCH (05:21)
[2022-03-01 07:58] VITALS: BP 111/69
[2022-03-01] MEDS: metFORMIN XR 500 MG (GLUCOPHAGE XR) TAB PO SCH (08:50)
[2022-03-01] MEDS: COLESTIPOL 1 GM (COLESTID) TAB PO SCH (08:51)
[2022-03-01] MEDS: AtorvaSTATin TABLET 10 MG TABLET PO SCH (08:52)
[2022-03-01] MEDS: lisINopril 20 MG (PRINIVIL) TABLET PO SCH (08:52)
[2022-03-01] MEDS: SITAGLIPTIN 100 MG PO SCH (08:53)
[2022-03-01] MEDS: MELOXICAM 7.5 MG (MOBIC) TABLET PO SCH (08:53)
[2022-03-01] MEDS: Omeprazole 40 MG PO SCH (08:54)
[2022-03-01] MEDS: CITALOPRAM HYDROBROMIDE 40 MG PO SCH (08:54)
--- NOTE | 2022-03-01 10:23 | D/C HH Face to Face Order ---
D/C Face to Face Orders Instructions for Patient [employer], Patient Instructions/FollowUp: NWB on R Leg; Keep Splint C/D/I; Follow up ~2 weeks or slightly over from surgery Physician to follow Patient: Dr. Dima Jc Discharge Diet for Home: No Restrictions Patient Data-Allergies,Ht & Wt Patient Allergies: Coded Allergies: No Known Drug Allergies (Unverified , 12/02/20) Home Health Need/Face to Face Date of Face to Face: Mar 01, 2022 Clinical Findings: Muscle weakness, Pain with ambulation, Unsteady gait I have seen Pt ifop-hj-hltm: Yes Discharged To: Home Diagnosis/Conditions: Right Trimalleolar Ankle Fracture s/p ORIF of Fracture Patient is Homebound due to: Jesús fall risk due to instabilty, Muscle weakness, Pain w/ambulation Homebound Status Due to the above stated illness, injury or surgical procedure (medical condition or diagnosis) and associated clinical findings, the patient is homebound because of his/her inability to leave home except with aid of a supportive device and/or person AND leaving the home requires a considerable and taxing effort or is medically contraindicated. Pt req the following assistanc: Aid of another person, Walker Home Health Nursing Orders Home Health Services Order: Physical Therapy-Evaluate & Treat Home Health Infusion Therapy Line Start Date: Feb 25, 2022 Therapy Orders Therapy Orders: Physical Therapy Therapy Specific Orders: Gait training, Increase strength/endurance Certify Stmt I certify that this patient is under my care and that I, a nurse practitioner or a physician; a account assistant working with me, had a face to face encounter that - meets the physician face to face encounter requirements with this patient as dated. DIMA JC MD Mar 01, 2022 10:23
--- NOTE | 2022-03-01 10:25 | Progress Note - Ortho ---
Progress Note Subjective Date of Exam 03/01/22 Chief Complaint POD #3 ORIF of R Ankle Fx HPI/Events since last exam improving, arrangements being made for home health Review of Systems - Allergies: Coded Allergies: No Known Drug Allergies (Unverified , 12/02/20) Home Meds Active Scripts Oxycodone Hcl (OXYIR TABLET) 5 Mg Tab, 5 MG PO Q4H PRN for PAIN-SEVERE (8-10) for 7 Days, #40 TAB 0 Refills Prov:EMELY SOUTH MD 02/26/22 Reported Medications Meloxicam (Meloxicam) 7.5 Mg Tablet, 7.5 MG PO DAILY, TAB 02/25/22 Metformin HCl (Metformin HCl ER) 500 Mg Tab.er.24h, 500 MG PO BID 09/14/21 Cetirizine HCl (Zyrtec) 10 Mg Tablet, 10 MG PO DAILY, TAB 09/14/21 Citalopram Hydrobromide (Citalopram HBr) 40 Mg Tablet, 40 MG PO DAILY 09/13/21 Colestipol HCl (Colestid) 1 Gm Tab, 2 GM PO BID, TAB 09/13/21 Lisinopril (Lisinopril) 20 Mg Tablet, 20 MG PO DAILY, TAB 09/13/21 Mirabegron (Myrbetriq) 50 Mg Tab.er.24h, 50 MG PO DAILY, TAB 09/13/21 Atorvastatin Calcium (Atorvastatin Calcium) 10 Mg Tablet, 10 MG PO DAILY, TAB 09/13/21 Sitagliptin Phosphate (Januvia) 100 Mg Tablet, 100 MG PO DAILY, TAB 09/13/21 Omeprazole (Omeprazole) 40 Mg Capsule.dr, 40 MG PO DAILY, CAP 09/13/21 Discontinued Reported Medications Loperamide HCl (Imodium A-D) 2 Mg Tablet, 2 MG PO DAILY PRN for DIARRHEA, TAB 09/14/21 Gabapentin (Neurontin) 300 Mg Capsule, 300 MG PO HS 09/14/21 Acetaminophen (Acetaminophen Extra Strength) 500 Mg Tablet, 1000 MG PO BID, TAB 09/14/21 Tramadol HCl (Tramadol HCl) 50 Mg Tablet, 100 MG PO Q6H PRN for PAIN-MODERATE (5-7) TAKES 2 50MG TABS 09/14/21 Cyclobenzaprine HCl (Cyclobenzaprine HCl) 10 Mg Tablet, 10 MG PO Q8H PRN for MUSCLE SPASMS 09/14/21 Glyburide (Glyburide) 2.5 Mg Tablet, 2.5 MG PO DAILY, TAB 09/13/21 Discontinued Scripts Oxycodone HCl (Oxycodone HCl) 5 Mg Tablet, 5-10 MG PO Q4H PRN for PAIN-SEVERE (8-10), #20 TAB Prov:DAGMAR GARVEY DO 09/17/21 Objective Exam Right leg: Splint C/D/I, toes up and down, sensation grossly intact to light touch Vital Signs Vital Signs Date Time Temp Pulse Resp B/P (MAP) Pulse Ox O2 Delivery O2 Flow Rate FiO2 03/01/22 08:40 Nasal Cannula 2.00 03/01/22 07:58 36.1 67 19 111/69 (83) 95 Nasal Cannula 2.00 03/01/22 04:00 36.5 78 18 138/67 (90) 94 Nasal Cannula 2.00 03/01/22 00:00 36.5 93 19 125/68 (87) 93 Nasal Cannula 2.00 02/28/22 20:00 Nasal Cannula 2.00 02/28/22 19:41 36.4 89 18 142/74 (96) 93 Nasal Cannula 2.00 02/28/22 15:47 36.1 90 18 93/57 (69) 94 Nasal Cannula 2.00 02/28/22 11:45 36.9 83 18 132/71 (91) 91 Nasal Cannula 2.00 I & O 03/01/22 07:00 Intake Total 1890 ml Output Total 1300 ml Balance 590 ml Lab Results Laboratory Tests 02/28/22 15:42: Glucometer 156H 02/28/22 20:02: Glucometer 251H 03/01/22 05:22: Glucometer 181H Microbiology 02/25/22 MRSA Screen - Final, Complete MRSA not isolated Assessment and Plan Assessment Right Trimalleolar Ankle Fracture s/p ORIF Problem List Right Trimalleolar Ankle Fracture s/p ORIF Plan Plan for home with home health Final Diagonsis Right Trimalleolar Ankle Fracture s/p ORIF Level of the visit: Level 3 (postop global) EMELY SOUTH MD Mar 01, 2022 10:25
--- NOTE | 2022-03-01 10:48 | Physical Therapy Daily Note ---
PT Daily Note-Current Subjective Patient agrees to PT. Mental Status Patient Orientation: Normal For Age Transfers SCALE: Activities may be completed with or without assistive devices. 5-Icqscupvvn-mftqdtb completes the activity by him/herself with no assistance from a helper. 5-Set-up or Clean-up Assistance-helper sets up or cleans up; patient completes activity. Natalia assists only prior to or following the activity. 4-Supervision or Touching Assistance-helper provides verbal cues and/or touching/steadying and/or contact guard assistance as patient completes activity. Assistance may be provided throughout the activity or intermittently. 3-Partial/Moderate Assistance-helper does LESS THAN HALF the effort. Natalia lifts, holds or supports trunk or limbs, but provides less than half the effort. 2-Substantial/Maximal Assistance-helper does MORE THAN HALF the effort. Natalia lifts or holds trunk or limbs and provides more than half the effort. 1-Pkxfeghzx-ycbfwt does ALL the effort. Patient does none of the effort to complete the activity. Or, the assistance of 2 or more helpers is required for the patient to complete the activity. If activity was not attempted, code reason: 7-Patient Refused. 9-Not Applicable-not attempted and the patient did not perform the activity befo re the current illness, exacerbation or injury. 10-Not Attempted due to Environmental Limitations-(lack of equipment, weather re straints, etc.). 88-Not Attempted due to Medical Conditions or Safety Concerns. Lying to Sitting/Side of Bed(Q: 3 Sit to Stand (QC): 3 (x 3 sets) Weight Bearing Right Lower Extremity: Right Non Weight Bearing Left Lower Extremity: Left Full Weight Bearing Gait Training Distance: 5' to commode Gait Assistive Device: FWW Treatments Attempted to fit a walking limb device brought in by spouse, however, it is not appropriate for this patient. Education with patient and spouse on FWW, NWB, and w/c use in home. Spouse reports he has individuals to assist with getting into home due to patient's inability to perform steps safe NWB right LE. Assessment Patient to dismiss to home with spouse and home health intervention on this date. Patient is able to comply with NWB right LE and ambulates short distances with FWW. This PT recommends w/c use for distance and in home and FWW for transfers. PT Senior Care Goals Senior Care Goals PT Senior Care Goals Time Frame: Mar 20, 2022 Roll Left & Right (QC): 6 Sit to Lying (QC): 6 Lying-Sitting on Side/Bed(QC): 6 Sit to Stand (QC): 6 Chair/Miv-kk-Xbruc Xfer(QC): 6 Toilet Transfer (QC): 6 Walk 10 feet (QC): 4 Walk 50ft with 2 Turns (QC): 4 PT Plan Treatment/Plan Treatment Plan: Discontinue PT Treatment Plan: Bed Mobility, Education, Functional Activity Cleve, Functional Strength, Gait, Safety, Therapeutic Exercise, Transfers Treatment Duration: Mar 20, 2022 Frequency: 11 times per week Estimated Hrs Per Day: .5 hour per day Time/GCodes Time In: 1006 Time Out: 1018 Total Billed Treatment Time: 12 Total Billed Treatment 1 visit FA 12 min ZECHARIAH PAYAN PT Mar 01, 2022 10:48
[2022-03-01 11:03] VITALS: BP 109/67
[2022-03-01 12:17] VITALS: BP 109/67
--- NOTE | 2022-03-08 07:27 | Discharge Summary ---
Discharge Summary Hospital Course Hospital Course Date of Admission: Feb 25, 2022 at 17:11 Admission Diagnosis : Family Physician/Provider: Kj Lawler MD Date of Discharge: 03/01/22 Discharge Diagnosis: [ Right Trimalleolar Ankle Fracture] Hospital Course: [Admitted for right ankle fracture. Had ORIF. Had difficulty progressing with therapy. Arrangements made for home health. Discharged on 03/01. ] Labs and Pending Lab Test: Microbiology 02/25/22 MRSA Screen - Final, Complete MRSA not isolated Home Meds Active Oxyir Tablet (Oxycodone HCl) 5 Mg Tab 5 Mg PO Q4H PRN 7 Days Reported Meloxicam 7.5 Mg Tablet 7.5 Mg PO DAILY Metformin HCl ER (Metformin HCl) 500 Mg Tab.er.24h 500 Mg PO BID Zyrtec (Cetirizine HCl) 10 Mg Tablet 10 Mg PO DAILY Citalopram HBr (Citalopram Hydrobromide) 40 Mg Tablet 40 Mg PO DAILY Colestid (Colestipol HCl) 1 Gm Tab 2 Gm PO BID Lisinopril 20 Mg Tablet 20 Mg PO DAILY Myrbetriq (Mirabegron) 50 Mg Tab.er.24h 50 Mg PO DAILY Atorvastatin Calcium 10 Mg Tablet 10 Mg PO DAILY Januvia (Sitagliptin Phosphate) 100 Mg Tablet 100 Mg PO DAILY Omeprazole 40 Mg Capsule.dr 40 Mg PO DAILY Assessment/Pt Instructions NWB R leg, keep splint clean and dry Discharge Physical Examination Extremity: Other (R Leg: splint intact, cap refill brisk, toes flex and extend) Allergies: Coded Allergies: No Known Drug Allergies (Unverified , 12/02/20) Discharge Summary Date of Admission Feb 25, 2022 at 17:11 Date of Discharge Mar 01, 2022 at 12:18 Discharge Date: Feb 27, 2022 Discharge Time: 1200 EMELY SOUTH MD Mar 08, 2022 07:27
== END 2022-03-01 12:18 | disposition home or self-care (01) ==
LOC: EDUNIT# 15:43 → ER 15:44 → 4TH 17:11 → INTOOBSV 17:11 → UNDOADMOB 17:11 → 4TH 18:24 → SDC 18:24 → UNDODISOB 03-01 12:18
PROVIDERS: ATTEND Orthopaedic Surgery
DX: S82.851A Displaced trimalleolar fracture of right lower leg, initial encounter for closed fracture (principal); Z79.891 Long term (current) use of opiate analgesic; W19.XXXA Unspecified fall, initial encounter; X50.1XXA Overexertion from prolonged static or awkward postures, initial encounter; Z96.643 Presence of artificial hip joint, bilateral
CPT/HCPCS: 27822; 29515; 71045; 73600; 73610; 76000; 80053; 82947 ×2; 85025; 87081; 87636; 93005; 93041; 96372; 96374 ×2; 96375 ×2; 96376; 97116 ×2; 97162; 97530; 99285; C1713 ×9; G0378; 36415

== ENCOUNTER → 2022-03-11 | Outpatient (CLI) | payer MEDICARE ==
[~2022-03-11] MED LIST changes: +MELO7.5T46 PO; +OXC5T PO
== END ==
LOC: ORTHO 08:54
PROVIDERS: ATTEND Orthopaedic Surgery
DX: Z47.89 Encounter for other orthopedic aftercare (principal); Z98.890 Other specified postprocedural states

== ENCOUNTER → 2022-03-30 | Outpatient (CLI) | payer MEDICARE ==
--- NOTE | 2022-03-30 15:02 | Diagnostic Imaging Report ---
INDICATION: Right ankle fracture, postop. TIME OF EXAM: 2:30 PM. COMPARISON: Correlation is made with prior radiographs from 02/25/2022. FINDINGS: Since the prior study, the patient has undergone ankle surgery. There is a lateral plate and numerous screws transfixing the distal fibular fracture which shows anatomic alignment. There are two partially threaded screws transfixing the medial malleolus which also shows anatomic alignment. The ankle mortise is maintained. There is some slight widening of the medial clear space. No new fractures are seen. IMPRESSION: Satisfactory postop appearance to the right ankle. Dictated by: Dictated on workstation # [id number]
== END ==
LOC: ORTHO 14:17
PROVIDERS: ATTEND Orthopaedic Surgery
DX: Z47.89 Encounter for other orthopedic aftercare (principal); Z98.890 Other specified postprocedural states
CPT/HCPCS: 73610

== ENCOUNTER → 2022-04-22 | Outpatient (CLI) | payer MEDICARE ==
--- NOTE | 2022-04-22 10:06 | Diagnostic Imaging Report ---
Indication: Right ankle fracture, postop. Time of Exam: 9:25 AM Correlation is made with prior radiograph from 03/30/2022. Postoperative changes of the right ankle again noted. Overall ankle alignment appears stable. Fixation hardware distal fibula as well as medial malleolus appear unchanged. No fracture or loosening is identified. Overall alignment remains anatomic. IMPRESSION: Stable postop right ankle since exam from 03/30/2022. Dictated by: Dictated on workstation # [id number]
== END ==
LOC: ORTHO 09:13
PROVIDERS: ATTEND Orthopaedic Surgery
DX: Z47.89 Encounter for other orthopedic aftercare (principal); Z98.890 Other specified postprocedural states
CPT/HCPCS: 73610

== ENCOUNTER → 2022-05-25 | Outpatient (CLI) | payer MEDICARE ==
--- NOTE | 2022-05-25 11:35 | Diagnostic Imaging Report ---
Indication: Orthopedic follow-up AP, oblique and lateral views of right ankle are obtained with comparison made to study of 04/22/2022 There is stable overall appearance of lateral fibular plate fixation and 2 partially threaded cannulated screws in the medial malleolus. There is associated marginal spurring similar to previous study however no fracture or orthopedic hardware complication is seen. IMPRESSION: Stable postoperative findings without acute abnormality or complication. Dictated by: Dictated on workstation # [id number]
== END ==
LOC: ORTHO 09:36
PROVIDERS: ATTEND Orthopaedic Surgery
DX: Z47.89 Encounter for other orthopedic aftercare (principal); Z98.890 Other specified postprocedural states
CPT/HCPCS: 73610; G0463; 99213

== ENCOUNTER → 2022-07-06 | Outpatient (CLI) | payer MEDICARE | LOC: ORTHO 13:46 | PROVIDERS: ATTEND Orthopaedic Surgery | DX: Z47.89 Encounter for other orthopedic aftercare (principal) | CPT/HCPCS: 99213 ==

== ENCOUNTER → 2022-10-08 | Outpatient (CLI) | payer MEDICARE ==
--- NOTE | 2022-10-08 14:27 | Diagnostic Imaging Report ---
INDICATION: Hematuria and urinary tract infection. TIME OF EXAM: 10:57 a.m. FINDINGS: There is a surgical clip in the gallbladder fossa. No free air is identified. Bowel gas pattern is nonobstructed. No pathologic calcifications are seen. 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 IMPRESSION: No acute abnormality is detected. Dictated by: Dictated on workstation # [id number]
== END ==
LOC: RAD FS 10:38
PROVIDERS: ATTEND Urology
DX: N39.0 Urinary tract infection, site not specified (principal); R31.9 Hematuria, unspecified
CPT/HCPCS: 74018